=== PATIENT | male | born 1950 | race Caucasian/White ===

== ENCOUNTER → 2016-02-27 | Outpatient (CLI) | payer OTHER, MEDICARE ==
[~2016-02-27] MED LIST: ALBUTEROL0.09 MG/A2 INH; ALL 100 SUPER B1 TAB JT; ALPRAZOLAM0.5 M2; AMLODIPINE BESYL5 MG PO; ASPI-COR81 M1 PO; ASPIRIN81 M1 PO; ASPIRIN81 MG PO; ATENOLOL25 MG JT; ATENOLOL25 MG PO; ATIVAN1 MG PO; AUGMENTIN 2040 MG/ML PEG; Atrovent I0.5 MG/2.5 NEB; BISCOLAX5 MG PO; BUPROPION HCL100 MG JT; CATAPRES-T0.1 MG/24 TD; CEFUROXIME AXE250 MG PO; CLONIDINE HCL0.1 MG PO; CLONIDINE0.1 MG PO; COLACE100 MG JT; COLACE100 MG PO; DAILY VALUE1 EACH PO; DELTASONE10 MG; DESYREL50 MG PO; DOXYCYCLINE HY100 M5 PO; DUONEB 3 MG/3 ML3 M1 INH; DUONEB 3 MG/3 ML3 M1 NEB; Duoneb 3ML 3 MG/3 ML INH; ENSURE CLINICA PO; EPA1000 MG PO; FLEXERIL10 MG PO; FLUONAZOLE100 MG PO; GABAPENTIN TAB600 MG PO; HOSPBED; HYDR25T PO; HYDROCHLOROTHIA25 M1 PO; HYDROCODONE BIT1 T11 PO; Ipratropium Brom3 ML IH; KEFLEX500 MG PO; KLOR-CON 1010 ME1 PO; LEVAQUIN500 M2 PO; LEVAQUIN750 MG PO; LISINOPRIL20 MG PO; LISINOPRIL40 MG PO; LOPRESSOR25 MG PO; Lopressor25 MG PO; Lovenox40 MG/0.4 IJ; MAXIPIME1 GM IV; MEDROL DOSEPAK4 MG PO; MELATONIN10 M2 PO; MELATONIN5 M1 PO; MELATONIN5 M2 PO; MELATONIN5 MG PO; METOPROLOL SUCC25 M2 PO; MINIPRESS2 M1 PO; MOM30 M1 PO; MUCINEX DM 30 M1 TE1 PO; MULTI VITAMINS1 TAB PO; MULTIPLE VITAMI1 T25 PO; MULTIPLE VITAMI1 TAB JT; MYCELEX TROCHE PO; MYCELEX TROCHE10 MG PO; Motrin,Rufen800 MG PO; NEURONTIN300 MG PO; NEURONTIN600 MG PO; NICODERM C21 MG/24 H TD; NITRO-DUR0.4 MG/HR SL; NKHM; OS-CAL 500 + D1 TAB PO; OXYCODONE AND A1 T11 JT; OXYGEN NAS; PERCOCET 325 MG1 TA2 PO; POTASSIUM CHLO10 MEQ PO; PREDNISONE10 MG PO; ROBITUSSIN5 ML PO; SERTRALINE HYDR25 MG PO; SOLU MEDROL IJ; SPIRIVA18 MCG PO; SYMBICORT1 AE1 INH; TEMAZEPAM15 M1 PO; TESTOSTERO200 MG/10 IM; TOPROL XL25 MG PO; TRAMADOL HCL50 MG PO; TRAMADOL50 MG JT; TRAMADOL50 MG PO; TRAZADONE HYDR100 MG PO; TRAZODONE150 MG JT; TYLENOL 8 HOUR650 MG PO; TYLENOL W/ CODEI5 ML PEG; ULTRAM ER100 MG PO; ULTRAM50 MG PO; VIAGRA100 MG PO; VIAGRA25 MG PO; VIBRAMYCIN100 MG PO; VICODIN 5-3001 EACH PO; VICODIN 5/500 505 MG PO; VIT C-BIOFLAVO1 EACH PO; VITAMIN C1 TAB PO; VITAMIN D1000 IU PO; VIVLODEX10 MG PO; Ventolin 02.5 MG/3 M NEB; WELLBUTRIN100 MG PO; XANAX0.25 MG PO; XANAX0.5 MG PO; XANAX1 MG JT; XOPENEX1.25 MG/3 IH; ZOFRAN ODT4 MG SL; ZOLOFT25 MG PO; ZOLOFT50 MG PO; ZOSYN1 SO1 IV; Zestril,Prinivi40 MG PO
[2016-02-27 15:56] LABS: VITAMIN D, 25-HYDROXY 38.7 ng/mL (30-100)
== END | disposition home or self-care (01) ==
LOC: LAB 14:11
PROVIDERS: Internal Medicine
DX: N62 Hypertrophy of breast (principal); E29.1 Testicular hypofunction; E55.9 Vitamin D deficiency, unspecified

== ENCOUNTER 2016-12-07 13:45 | Inpatient (IN) | payer OTHER, MEDICARE ==
[~2016-12-07] VITALS: Ht 190.5 cm; Wt 119.9 kg
[2016-12-07 13:58] VITALS: BP 128/66
[2016-12-07 14:30] LABS: BASO % 0.2 % (0.0-1.0); EOS % 0.2 % (1.0-4.0); HEMOGLOBIN 14.4 g/dl (14.0-18.0); LYMPH # 0.8 10*3/uL (1.3-4.4); LYMPH % 4.1 % (27.0-41.0); MEAN CELL VOLUME 98.4 fl (80.0-94.0); MEAN CORPUSCULAR HGB 32.2 pg (27.0-31.0); MEAN CORPUSCULAR HGB CONC 32.7 g/dl (33.0-37.0); MEAN PLATELET VOLUME 9.5 fl (9.6-12.3); MONO # 1.2 10*3/uL (0.1-1.0); MONO % 6.4 % (3.0-9.0); NEUT # 16.5 10*3/uL (2.3-7.9); NEUT % 88.5 % (47.0-73.0); PLATELET COUNT AUTOMATED 243 10*3/uL (130-400); RED BLOOD COUNT 4.47 10*6/uL (4.50-5.90); RED CELL DISTRI WIDTH 12.8 % (0-14.5); WHITE BLOOD COUNT 18.6 10*3/uL (4.8-10.8)
[2016-12-07 14:41] LABS: ACT PARTIAL THROMBO TIME 26.9 SECONDS (20.8-31.5)
[2016-12-07 14:46] LABS: ALBUMIN 3.2 gm/dl (3.1-4.5); ALKALINE PHOSPHATASE 100 U/L (45-117); BUN 21 mg/dl (7-24); CHLORIDE 100 mmol/L (98-107); CREATININE 1.33 mg/dL (0.70-1.30); POTASSIUM 3.6 mmol/L (3.5-5.1); SGOT/AST 15 IU/L (3-35); SGPT/ALT 15 U/L (12-78); SODIUM 137 mmol/L (136-145); TOTAL PROTEIN 7.5 gm/dL (6.4-8.2)
[2016-12-07 14:47] LABS: TROPONIN I < 0.015 ng/ml (<0.045)
[2016-12-07 15:04] VITALS: BP 136/69
[2016-12-07 15:13] LABS: BILIRUBIN NEGATIVE (NEGATIVE); BLOOD NEGATIVE (NEGATIVE); CLARITY CLEAR (CLEAR); COLOR YELLOW (YELLOW); GLUCOSE NEGATIVE (NEGATIVE); KETONE NEGATIVE (NEGATIVE); LEUKO ESTERASE NEGATIVE (NEGATIVE); NITRITE NEGATIVE (NEGATIVE); PH 5.5 (5.0-9.0); SPECIFIC GRAVITY 1.025 (1.005-1.030); UROBILINOGEN 0.2 E.U./dl (0.2-1.0)
[2016-12-07 15:22] LABS: BACTERIA TRACE
[2016-12-07] MEDS ORDERED: ASPIRIN ADULT L81 M1 PO (17:21)
[2016-12-07] MEDS ORDERED: IBU800 MG PO (17:25)
[2016-12-07] MEDS ORDERED: MELATONIN10 M4 PO (17:28)
[2016-12-07] MEDS ORDERED: SYMB160 INH (17:34)
[2016-12-07] MEDS ORDERED: INCRUSE ELLI62.5 MCG INH (17:37)
[2016-12-08] VITALS: BP 139/66
[2016-12-08 06:49] LABS: HEMOGLOBIN 12.5 g/dl (14.0-18.0); MEAN CELL VOLUME 97.4 fl (80.0-94.0); MEAN CORPUSCULAR HGB 32.1 pg (27.0-31.0); MEAN PLATELET VOLUME 9.8 fl (9.6-12.3); PLATELET COUNT AUTOMATED 224 10*3/uL (130-400); RED BLOOD COUNT 3.89 10*6/uL (4.50-5.90); RED CELL DISTRI WIDTH 12.8 % (0-14.5); WHITE BLOOD COUNT 16.2 10*3/uL (4.8-10.8)
[2016-12-08 06:50] LABS: HEMATOCRIT 37.9 % (42.0-52.0)
[2016-12-08 07:24] LABS: TOTAL CELLS COUNTED 100 #CELLS
[2016-12-08 07:25] LABS: PLATELET SUFFICIENCY NORMAL (NORMAL)
[2016-12-08 07:30] LABS: ALBUMIN 2.7 gm/dl (3.1-4.5); ALKALINE PHOSPHATASE 86 U/L (45-117); BUN 19 mg/dl (7-24); CHLORIDE 106 mmol/L (98-107); CHOLESTEROL 164 mg/dL (<200); CREATININE 1.01 mg/dL (0.70-1.30); FREE T4 0.96 ng/dl (0.76-1.46); HDL CHOLESTEROL 74 mg/dl (40-60); LDL CHOLESTEROL 82 mg/dL (9-159); PHOSPHOROUS 2.1 mg/dL (2.5-4.9); POTASSIUM 3.9 mmol/L (3.5-5.1); SGOT/AST 16 IU/L (3-35); SGPT/ALT 13 U/L (12-78); SODIUM 139 mmol/L (136-145); TOTAL PROTEIN 6.5 gm/dL (6.4-8.2); TRIGLYCERIDES 39 mg/dl (<150); VLDL CHOLESTEROL 8 mg/dL (6-40)
[2016-12-08 07:34] LABS: THYROID STIM HORMONE (HS) 0.419 uIU/ml (0.358-4.75)
[2016-12-08 07:47] LABS: VITAMIN D, 25-HYDROXY 34.3 ng/mL (30-100)
[2016-12-08 08:00] VITALS: BP 140/76
[2016-12-08 12:00] VITALS: BP 140/68
[2016-12-08 16:00] VITALS: BP 138/76
[2016-12-08 20:00] VITALS: BP 146/68
[2016-12-09] VITALS: BP 153/80
[2016-12-09 06:30] LABS: BASO % 0.2 % (0.0-1.0); EOS % 0.2 % (1.0-4.0); HEMATOCRIT 37.5 % (42.0-52.0); HEMOGLOBIN 12.2 g/dl (14.0-18.0); LYMPH # 1.5 10*3/uL (1.3-4.4); LYMPH % 10.9 % (27.0-41.0); MEAN CELL VOLUME 97.4 fl (80.0-94.0); MEAN CORPUSCULAR HGB 31.7 pg (27.0-31.0); MEAN CORPUSCULAR HGB CONC 32.5 g/dl (33.0-37.0); MEAN PLATELET VOLUME 9.6 fl (9.6-12.3); MONO % 7.4 % (3.0-9.0); NEUT # 11.1 10*3/uL (2.3-7.9); NEUT % 80.9 % (47.0-73.0); PLATELET COUNT AUTOMATED 232 10*3/uL (130-400); RED BLOOD COUNT 3.85 10*6/uL (4.50-5.90); RED CELL DISTRI WIDTH 12.8 % (0-14.5); WHITE BLOOD COUNT 13.7 10*3/uL (4.8-10.8)
[2016-12-09 06:59] LABS: BUN 18 mg/dl (7-24); CHLORIDE 108 mmol/L (98-107); PHOSPHOROUS 2.8 mg/dL (2.5-4.9); POTASSIUM 3.9 mmol/L (3.5-5.1); SODIUM 142 mmol/L (136-145)
[2016-12-09 08:00] VITALS: BP 154/82
[2016-12-09 12:00] VITALS: BP 160/85
[2016-12-09 16:00] VITALS: BP 161/73
[2016-12-09] MEDS ORDERED: CONTRAVE ER 8-1 EACH PO (17:10)
[2016-12-09 20:00] VITALS: BP 151/80
[2016-12-10] VITALS: BP 150/68
[2016-12-10 08:00] VITALS: BP 126/54
[2016-12-10 16:00] VITALS: BP 132/64
[2016-12-10 20:00] VITALS: BP 144/74
[2016-12-11] VITALS: BP 132/54
[2016-12-11 08:00] VITALS: BP 136/66
[2016-12-11] MEDS ORDERED: PREDNISONE10 MG PO (11:34)
[2016-12-11] MEDS ORDERED: SERTRALINE HYDR25 MG PO (11:34)
[2016-12-11] MEDS ORDERED: DOXYCYCLINE100 M3 PO (11:34)
[2016-12-11 12:00] VITALS: BP 124/67
== END 2016-12-11 13:50 | disposition home health service (06) | DRG 871 ==
LOC: ED 13:45 → EDHOLD 15:48 → 5E 15:48
PROVIDERS: Emergency Medicine; Internal Medicine; ADMIT Internal Medicine
DX: A41.9 Sepsis, unspecified organism (principal); N17.0 Acute kidney failure with tubular necrosis; J96.21 Acute and chronic respiratory failure with hypoxia; J44.0 Chronic obstructive pulmonary disease with (acute) lower respiratory infection; J18.9 Pneumonia, unspecified organism; J44.1 Chronic obstructive pulmonary disease with (acute) exacerbation; R13.10 Dysphagia, unspecified; R65.20 Severe sepsis without septic shock; I10 Essential (primary) hypertension; M19.90 Unspecified osteoarthritis, unspecified site; K21.9 Gastro-esophageal reflux disease without esophagitis; F17.210 Nicotine dependence, cigarettes, uncomplicated; F41.9 Anxiety disorder, unspecified; M47.9 Spondylosis, unspecified; F32.9 Major depressive disorder, single episode, unspecified; F43.12 Post-traumatic stress disorder, chronic; R27.0 Ataxia, unspecified; Z88.8 Allergy status to other drugs, medicaments and biological substances; Z79.899 Other long term (current) drug therapy; Z85.048 Personal history of other malignant neoplasm of rectum, rectosigmoid junction, and anus; Z90.5 Acquired absence of kidney; Z98.52 Vasectomy status; Z72.89 Other problems related to lifestyle; Z82.49 Family history of ischemic heart disease and other diseases of the circulatory system; Z83.6 Family history of other diseases of the respiratory system; Z99.81 Dependence on supplemental oxygen; Z85.89 Personal history of malignant neoplasm of other organs and systems; Z79.82 Long term (current) use of aspirin

== ENCOUNTER 2017-02-17 11:49 | Inpatient (IN) | payer OTHER, MEDICARE ==
[~2017-02-17] VITALS: Ht 190.5 cm; Wt 115.8 kg
--- NOTE | ~2017-02-17 | PR ---
[place], [place] PROGRESS NOTE NAME: JAK BAPTISTE [facility] #: [id number] UNIT #: [id number] ROOM: 416 DOCTOR: ROWAN CRONIN DO BIRTHDATE: [birth year] DOS: 02/21/2017 SUBJECTIVE: The patient was seen and examined at bedside. The patient was sitting in bed with no acute distress. The patient was with his family present at the time of interview. The patient reports that he did not do well with his ambulating yesterday, that he was feeling tired and short of breath. Additionally, the patient continues to have cough and shortness of breath while in bed. The patient agrees that he is not ready for discharge and that he will need continued care in the hospital until he is stable and able to return home on his baseline home oxygen supplementation. Otherwise, no new complaints at this time. The patient denies fever, chills, nausea, vomiting, headache, dizziness, lightheadedness, syncope. OBJECTIVE: VITAL SIGNS: Temperature 97.9, pulse is 77, respirations 20, blood pressure 132/72, pulse ox is 90% on 5 liters nasal cannula. GENERAL APPEARANCE: The patient is alert and oriented x 3, in no acute distress. HEENT: Eyes are clear. No injection. Nares are patent. Mucous membranes are moist. Nasal cannula is in place. NECK: Supple, nontender. CARDIAC: Regular rate and rhythm, S1, S2 noted. No rubs, gallops or murmurs. PULMONARY: Expiratory wheezes. No rales or rhonchi. ABDOMEN: Soft, nontender with positive bowel sounds. EXTREMITIES: No edema. No erythema. No cyanosis. No clubbing. LABORATORY DATA: White count 12.3, hemoglobin 12.1, hematocrit 36.7, platelets count 238. Chemistries were normal. Sputum culture from the 9th showed moderate yeast. IMPRESSION AND PLAN: Acute worsening of patient's chronic obstructive pulmonary disease exacerbation. The patient had a mild decline in his respiratory function. The patient is back to 5 liters nasal cannula at the rest, which is not stable for this patient and will need continued care in the hospital until his oxygenation returns to 2-3 liters baseline, continue with ambulation as tolerated, continue with steroids, antibiotics and bronchodilators, supportive care. No change in current plan at this time. Chest x-ray showed chronic obstructive pulmonary disease with mild basilar infiltrates and normal heart size. This imaging was from this morning. We will continue to follow. ROWAN CRONIN DO [place], [place] PROGRESS NOTE NAME: JAK BAPTISTE UNIT #: [id number] ROOM: 416 DOCTOR: ROWAN CRONIN DO BIRTHDATE: [birth year] MEME LENOARD MD CM:XIN [id number] ROWAN CRONIN DO 02/21/17 2242 interface
--- NOTE | ~2017-02-17 | PROC NOTE ---
[place], [place] PROCEDURE NOTE NAME: JAK BAPTISTE [facility] #: [id number] UNIT #: [id number] ROOM: 416 DOCTOR: FRANCIE HUSSEIN BIRTHDATE: [birth year] DOS: 02/19/2017 MODIFIED BARIUM SWALLOW LOCATION: [facility], room 416, bed 2. DOCTOR: Dr. Benson. RADIOLOGIST: Dr. Cordoba. BACKGROUND INFORMATION: The patient is a 66-year-old male was seen for modified barium swallow. This test was ordered to rule out aspiration due to his history. The patient is known to this department from past instances multiple times of aspiration pneumonia. He has had multiple video fluoroscopic swallowing studies performed both in this hospital and in other facilities. His most recent study was performed here on 03/07/2015. At that time, results revealed a mild pharyngeal dysphagia with delayed swallow initiation and penetration with thin liquids. His medical history is significant for acute kidney injury, COPD, pneumonia, respiratory failure, HTN, GERD and history of rectal cancer. He currently receives a regular diet and thin liquids. The patient reports no recent swallowing difficulty. For today's assessment, he was alert and able to follow commands. He was receiving oxygen via nasal cannula. He reported no shortness of breath. Oral peripheral examination revealed presence of top denture only. The patient reported that it fit adequately; however, it was noted to be loose fitting. Lingual, labial and buccal skills were within functional limits in terms of strength, range of motion and coordination. The patient's volitional swallow was delayed. Volitional cough was adequate. METHODS AND MATERIALS USED FOR THE EXAM: The patient was positioned in the lateral plane and examination was viewed under fluoroscopy. The patient was presented with a variety of consistencies to assess swallowing skills including applesauce mixed with barium, presented in half teaspoon amounts, barium-coated cookie and sandwich given in bite size pieces and thin liquid barium taken by cup in single sip size amounts. ORAL PHASE: The patient achieved adequate labial seal around cup and spoon with no anterior loss. Bolus formation and transit were adequate. Mastication was slow but functional. Tongue to palate contact was within normal limits. Tongue to posterior pharyngeal wall contact was within normal limits. Velar functioning was within normal limits. PHARYNGEAL PHASE: The pharyngeal swallow was timely with all consistencies except thin liquid. He did exhibit a mild delay initiating thin liquids swallows with premature loss into the vallecula prior to the swallow. Once his swallow triggered with every consistency, there was no penetration or aspiration and no residue. ESOPHAGEAL PHASE: This phase of the swallow was not formally assessed during this exam. [place], [place] PROCEDURE NOTE NAME: JAK BAPTISTE UNIT #: [id number] ROOM: [facility] DOCTOR: FRANCIE HUSSEIN BIRTHDATE: [birth year] IMPRESSIONS AND RECOMMENDATIONS: Based upon assessment results, this 66-year-old male presents with swallowing skills that are within functional limits. He did display a mild delay in initiating the swallow with thin liquid consistency only. However, once the swallow triggered, no penetration or aspiration occurred with this or with any consistency. It is recommended that the patient remained on regular diet and thin liquids and continue to implement safe swallow precautions that he has been performing such as upright positioning for meals, small bites and sips, eating slowly and chewing thoroughly. No followup therapy is warranted at this time. Results and recommendations were shared with the patient and he verbalized understanding. Thank you very much for this referral. Should you have any questions regarding this patient, please contact the speech pathologist at [phone]. FRANCIE HUSSEIN CM:PROCNOTE:PROCEDURE NOTE [id number] FRANCIE HUSSEIN
--- NOTE | ~2017-02-17 | PR ---
[place], [place] PROGRESS NOTE NAME: JAK BAPTISTE [facility] #: [id number] UNIT #: [id number] ROOM: 416 DOCTOR: ROWAN CRONIN DO BIRTHDATE: [birth year] DOS: 02/26/2017 SUBJECTIVE: The patient is seen and examined at bedside. The patient was lying in bed, in no acute distress. The patient reports that his breathing has some mild improvement; however, he remains short of breath with some wheezing. No productive cough. The patient reports that he would like to go a SNF if available; however, yesterday he found out that the SNF was not improved by his insurance and so his only option at this point is to go home when he is clinically stable. The patient agrees to that plan and is anxious to get home. No new complaints at this time. OBJECTIVE: VITAL SIGNS: Temperature 97.9, pulse is 56, respirations 18, blood pressure 139/71, bedside pulse ox is 91% on 4 liters nasal cannula. GENERAL APPEARANCE: The patient is awake, alert and oriented times 3, no acute distress. HEENT: Eyes are clear. No injection. Nares are patent. Mucous membranes are moist. NECK: Supple, nontender. CARDIOVASCULAR: Regular rate and rhythm, no murmurs, gallops or rubs. PULMONARY: Wheezes and rhonchi in all lung robertson. Mild improvement from yesterday. ABDOMEN: Soft, nontender, positive bowel sounds. EXTREMITIES: No edema, no erythema, no clubbing or cyanosis. NEUROLOGIC: Negative for focal deficits. No labs were drawn today. Sputum culture from the night shows normal norman. Blood cultures remain negative. Strep and flu swabs were negative. ASSESSMENT: 1. Acute on chronic obstructive pulmonary disease. 2. Acute hypoxia with hypercapnia. 3. Nicotine abuse. 4. Resolving bilateral lower lobe pneumonia. PLAN: We will assess the patient for home oxygen needs. The patient already has equipment at home. We will reassess to see if he needs new scripts for a new of the nasal cannula. We will also assess to see if the patient needs physical therapy and respiratory therapy at home and make appropriate arrangements as needed. The patient is medically stable from a pulmonary standpoint for discharge. Recommend continuing steroid taper along with antibiotics upon discharge and follow up with Dr. Leonard in 1-2 weeks. We will continue to follow the patient as long as he remains in the hospital. ROWAN CRONIN DO [place], [place] PROGRESS NOTE NAME: JAK BAPTISTE [facility] UNIT #: [id number] ROOM: [facility] DOCTOR: ROWAN CRONIN DO BIRTHDATE: [birth year] MEME LEONARD MD CM:XIN [id number] ROWAN CRONIN DO 02/26/17 1239 interface
--- NOTE | ~2017-02-17 | PR ---
[place], [place] PROGRESS NOTE NAME: JAK BAPTISTE [facility] #: [id number] UNIT #: [id number] ROOM: 416 DOCTOR: HORACIO HORN MD,MEME BIRTHDATE: [birth year] DOS: 02/23/2017 SUBJECTIVE: The patient has been showing gradual reduction and improvement in respiratory symptoms. Today, the patient stated he has been feeling much better than last few days. Denies symptoms of chest pain. The coughing has been resolving. There were symptoms of chest pain or any abdominal pain. OBJECTIVE: VITAL SIGNS: For the patient which were recorded. The patient shows a temperature normal, respiratory rate 18, heart rate 67, blood pressure 135/61. Pulse oxygen saturation on 6 L nasal cannula 94% saturation. HEENT: No new change. CARDIOVASCULAR: S1, S2 audible. LUNGS: The patient was noted with moderate decreased breath sounds, mild expiratory wheezing. ABDOMEN: Soft and obese. EXTREMITIES: Without any edema. LABORATORY DATA: CBC: WBC count 15.8, hemoglobin 12.2, hematocrit 37.0, platelet count of ____. BMP for the patient, glucose 141, BUN 34, creatinine 1.10. IMPRESSION: 1. Stable respiratory status was noted at the present time with resolving acute hypoxic respiratory failure with hypercarbia. 2. Acute pneumonia for this patient as well. PLAN OF MANAGEMENT: Continuation of oxygen supplementation, bronchodilators and the antibiotics. Continuation of other therapy, plan of management. Reduction of the oxygen for this patient with titration based on improvement in the oxygenation. MEME LEONARD MD CM:PNTRANS [phone] MEME HORN MD 02/23/17 1737 interface
--- NOTE | ~2017-02-17 | PR ---
[place], [place] PROGRESS NOTE NAME: JAK BAPTISTE [facility] #: [id number] UNIT #: [id number] ROOM: 416 DOCTOR: HORACIO HORN MD,MEME BIRTHDATE: [birth year] DOS: 02/27/2017 SUBJECTIVE: The patient was seen independently today with [id number] encounter, history was confirmed. Physical examination was performed. The assessment and management personally made for today's visit as well. The note done by the medical physiologist, was approved. The patient has been showing progressive reduction of the respiratory symptom, improvement of cough, wheezing, shortness of breath, and others. OBJECTIVE: VITAL SIGNS: Essentially were noted as normal. The pulse oxygen saturation maintaining oxygen saturation 95% on 4 liters cannula. LUNGS: Mild expiratory wheezing in the lower lung. There were no crackles. ABDOMEN: Soft, nontender. EXTREMITIES: Shows mild edema. LABORATORY DATA: The patient's CBC: WBC count 15.8 with mild anemia, otherwise creatinine were noted normal. IMPRESSION: Progressive resolution. Acute severe hypoxic and hypercapnic respiratory failure, acute aspiration pneumonia, reduction of the leukocytosis was noted. Overall debility. PLAN OF MANAGEMENT: The patient has been planned for discharge home since he has not been authorized for the correction facility or home health therapy. In the meantime, continue other plan of therapy as in progress. No additional changes in the treatment at this time will be necessary. MEME LEONARD MD CM:PNTRANS [phone] MEME HORN MD 02/27/172031 interface
--- NOTE | ~2017-02-17 | PR ---
[place], [place] PROGRESS NOTE NAME: JAK BAPTISTE [facility] #: [id number] UNIT #: [id number] ROOM: 416 DOCTOR: HORACIO HORN MD,MEME BIRTHDATE: [birth year] DOS: 02/20/2017 SUBJECTIVE: The patient was independently seen and examined today with [id number] encounter. Physical examination performed. Labs available were reviewed. ____ patient for today's visit personally completed. The assessment and the note done by the medical reception was approved as well. The patient has been still noted with coughing and shortness of breath with reduction of the respiratory symptoms. Denies any symptoms of chest pain or hemoptysis. The patient was noted mostly at the bed for the patient and has not ambulated, requiring 4 liters of oxygen supplementation. OBJECTIVE: VITAL SIGNS: For the patient shows a normal temperature, respiratory rate 18, heart rate 60, blood pressure 48/87 this morning. Pulse oxygen saturation with 5 liter nasal cannula was 90% saturation on 4 liters was 89% saturation. HEENT: No acute change. NECK: Supple. CARDIOVASCULAR: S1, S2 audible. LUNGS: The patient was noted with moderate decreased breath sounds, expiratory wheezing. ABDOMEN: Soft, nontender. EXTREMITIES: Without any edema. SKIN: No lesions or rashes. MUSCULOSKELETAL: No deformities. GENITOURINARY: Noted intact. LABORATORY DATA: Modified barium swallow was completed. The patient just did which does not show any gross aspiration. The cultures of the sputum was noted with moderate growth of A yeast. IMPRESSION: 1. The patient has been noted with ongoing exacerbation of chronic obstructive pulmonary disease with severe acute hypoxic respiratory failure. The patient still requiring high amount of oxygen supplementation at the present time. 2. Anxiety. The patient is anxious for home discharge as well. 3. Bilateral lower lobe aspiration pneumonia as well. PLAN OF MANAGEMENT: Follow the recommendation of the speech pathologist as well. ____ with use of the oxygen to assess tomorrow if the patient will be ready for discharge. I will be repeating another ____ this morning to reassess the progression of pulmonary infiltration. Possibility of worsening of the infiltration was suspected since the patient still require high amount of oxygen supplementation. Continuation of the bronchodilators and oxygen supplementation as well as corticosteroids. Usual care, other supportive plan of management. Abstinence from the tobacco use was recommended as well. [place], [place] PROGRESS NOTE NAME: JAK BAPTISTE UNIT #: [id number] ROOM: 416 DOCTOR: MEME TAMAYO MD BIRTHDATE: [birth year] MEME LEONARD MD CM:PNTRANS [phone] MEME HORN MD 02/20/171652 interface
--- NOTE | ~2017-02-17 | EKG ---
[place], [place] ELECTROCARDIOGRAM REPORT NAME: JAK BAPTISTE UNIT #: [id number] ROOM: 416 DOCTOR: HORACIO HORN MD,MEME BIRTHDATE: [birth year] DOS: 02/17/2017 TIME: 12:09 p.m. Electrocardiogram shows sinus bradycardia with heart rate of 55 beats per minute. Minimal ST segment elevation noted in the II, III and aVF. Significance unknown. Clinical correlation would be advised. MEME LEONARD MD CM:EKGRPT:ELECTROCARDIOGRAM REPORT [id number] MEME HORN MD
--- NOTE | ~2017-02-17 | PR ---
[place], [place] PROGRESS NOTE NAME: JAK BAPTISTE [facility] #: [id number] UNIT #: [id number] ROOM: 416 DOCTOR: ROWAN CRONIN DO BIRTHDATE: [birth year] DOS: 02/20/2017 SUBJECTIVE: The patient is seen and examined at bedside. The patient was sitting upright, with family present in the room. The patient is in no acute distress. The patient reports that his shortness of breath, his cough and his wheezing have all improved. The patient is anxious to be discharged to go home to continue his care. However, he understands that he should be medically stable before he is ready to go. We encouraged him to walk around the hospital to see how his oxygenation does. The patient understands the plan and agrees. The patient thinks that he might be ready to go tomorrow. The patient has no new complaints today. OBJECTIVE: VITAL SIGNS: Temperature 98.4, pulse is 60, respirations 18, blood pressure 148/87, pulse ox is 90% on 4 liters nasal cannula. LABS: Sputum culture shows moderate yeast. No bacteria. Blood cultures remain negative. Flu culture was negative. Strep culture was negative. Modified barium swallow yesterday showed no deficits. GENERAL APPEARANCE: The patient is alert and oriented x 3, no acute distress. HEENT: Eyes are clear. No injection, no discharge, nares are patent. Mucous membranes are moist. NECK: Supple, nontender. LUNGS: Diminished with expiratory wheezing. No crackles are noted. ABDOMEN: Soft, nontender with positive bowel sounds. EXTREMITIES: No erythema, edema, or cyanosis or clubbing. SKIN: Clear of rashes. NEUROLOGIC: Cranial nerves are grossly intact. IMPRESSION: 1. Sepsis. 2. Chronic obstructive pulmonary disease with acute exacerbation. 3. Suspected pneumonia with suspected aspiration. CT was positive for bilateral pneumonia with left lower lobe greater than the right lower lobe. Swallow study was negative. 4. Tobacco abuse. 5. Oxygen dependent. 6. Chronic respiratory failure. 7. Vitamin D deficiency. 8. Protein calorie malnutrition. TREATMENT: At this time, we encouraged the patient to ambulate and to see how his oxygenation level does. The patient continues to improve and if he continues to improve by tomorrow, the patient will be ready for discharge from pulmonary standpoint. We will discuss this with the primary team. ROWAN CRONIN DO [place], [place] PROGRESS NOTE NAME: JAK BAPTISTE UNIT #: [id number] ROOM: [facility] DOCTOR: ROWAN CRONIN DO BIRTHDATE: [birth year] MEME LEONARD MD CM:XIN [phone] ROWAN CRONNI DO 02/20/17 1200 interface
--- NOTE | ~2017-02-17 | PR ---
[place], [place] PROGRESS NOTE NAME: JAK BAPTISTE [facility] #: [id number] UNIT #: [id number] ROOM: 416 DOCTOR: HORACIO HORN MD,MEME BIRTHDATE: [birth year] DOS: 02/19/2017 SUBJECTIVE: The patient was independently seen and examined today with [id number] encounter, history was taken for this patient personally physical examination performed. All the labs were reviewed. Any changes in the assessment of the patient or recommendation in change of management were personally made for today's visit. The note done by the medical reimbursement specialist, was approved. The patient has reported reduction of the respiratory symptoms from yesterday. Denies any symptoms of chest pain or any abdominal pain. The patient has not been reported any symptoms of abdominal pain. He was scheduled to have modified barium swallow completed today to rule out any dysphagia. OBJECTIVE: VITAL SIGNS: For the patient was noted essentially normal and the patient remains afebrile. Pulse oxygen saturation on 5 liter nasal cannula noted as 91% saturation. HEENT: Head was atraumatic. Eyes nonicterus. NECK: Supple. CARDIOVASCULAR: S1, S2 audible. LUNGS: Shows moderate decreased breath sounds with scattered expiratory wheezing and basilar crackles. ABDOMEN: Soft, nontender. Moderate obesity. EXTREMITIES: Without any edema. SKIN: No visible skin lesions. GENITOURINARY: Cranial nerves are intact. MUSCULOSKELETAL: No gross deformities. LABORATORY DATA: Culture of the sputum preliminary noted normal norman from yesterday. Urine culture, no bacterial growth, final results. Blood culture from preliminary reported no bacterial growth in both sets. IMPRESSION: 1. The patient who has been currently noted with acute exacerbation of chronic obstructive pulmonary disease with bilateral basilar pneumonia with additional area of atelectasis. 2. Severe acute hypoxic respiratory failure result of the above. 3. Rule out dysphagia as well. PLAN OF TREATMENT: The patient would be continued on the current antibiotics, bronchodilators and oxygen supplementation. Titrate oxygen to maintain a saturation of 92% or greater. Continue current antibiotic, monitoring temperature curve and leukocytosis. Any additional changes in the treatment for the patient if necessary will be ordered after the assessment of modified barium swallow. At this time, no additional or immediate changes in treatment will be needed. Titrate oxygen to maintain a saturation to 92% or greater. [place], [place] PROGRESS NOTE NAME: JAK BAPTISTE [facility] UNIT #: [id number] ROOM: 416 DOCTOR: MEME TAMAYO MD BIRTHDATE: [birth year] MEME LEONARD MD CM:PNMARIELLA [phone] MEME HORN MD 02/19/17 2257 interface
--- NOTE | ~2017-02-17 | CON ---
[place], [place] REPORT OF CONSULTATION NAME: JAK BAPTISTE [facility] #: [id number] UNIT #: [id number] ROOM: 416 DOCTOR: HORACIO HORN MDMEME BIRTHDATE: [birth year] DOS: 02/18/2017 PULMONARY CONSULTATION EVALUATION AND MANAGEMENT CONSULTATION REQUESTED BY: Hospitalist services. REASON FOR CONSULTATION: To assess symptoms of acute exacerbation of COPD. HISTORY OF PRESENT ILLNESS: This is a 66-year-old male patient known to me with past history of COPD and past history of recurrent aspiration pneumonia. He has been admitted to the hospital on 02/17/2017, as he has not been feeling well for about a week. The patient did develop symptoms of cough, which has been noted dry and progressive. The symptoms were associated with the shortness of breath. Denies symptoms of significant wheezing. Denies symptoms of chest pain or hemoptysis. The patient denies any symptoms of chest trauma. He has been admitted to the hospital, as the patient reported with symptoms of fever as well. REVIEW OF SYSTEMS: CONSTITUTIONAL: The patient reported symptoms of temperature elevation up to 102 degrees Fahrenheit. There were no chills. Denies changes in appetite. EYES: Denies any burning, redness, tenderness. EARS, NOSE, AND THROAT: Denies sore throat, hoarseness, otalgia, postnasal drainage. CARDIOVASCULAR: Denies angina pain, edema or pain of the lower extremities. GASTROINTESTINAL: Denies symptoms of dysphagia at the present time. Denies symptoms of nausea, vomiting, diarrhea, abdominal pain, hematemesis, melena, or any abnormal weight loss history. GENITOURINARY: Dysuria, suprapubic pain, and hematuria. SKIN: Denied any lesions or rashes. MUSCULOSKELETAL: No acute joint pain, redness, or tenderness. CENTRAL NERVOUS SYSTEM: Denies dizziness, headache, diplopia, syncopal episodes. The remaining systems were reviewed with the patient, they were noted all negative. Last diagnosis managed in 11/2016, as the patient was managed for exacerbation of chronic obstructive pulmonary disease, respiratory failure and the pneumonia reported in the discharge summary. PAST MEDICAL HISTORY: 1. History of COPD. 2. History of recurrent pneumonia from oropharyngeal dysphagia that has been resolved. 3. History of PTSD. 4. History of renal cell cancer in 2010 on the right side. 5. Essential hypertension. 6. Anxiety disorder. 7. Chronic nicotine dependence intermittently. [place], [place] REPORT OF CONSULTATION NAME: JAK BAPTISTE [facility] #: [id number] UNIT #: [id number] ROOM: [facility] DOCTOR: MEME TAMAYO MD BIRTHDATE: [birth year] PAST SURGICAL HISTORY: Noted. 1. Right nephrectomy. 2. Left knee replacement. 3. Vasectomy. 4. Therapeutic bronchoscopy. 5. PEG tube insertion and removal in 2014. 6. Upper endoscopy. 7. Tonsillectomy. 8. Fistulectomy. 9. Appendectomy. FAMILY HISTORY: The patient's father at the age of 8080 years old with complication related to abdominal aortic aneurysm. Mother at 77 years old with complications related to COPD. SOCIAL HISTORY: The patient is and lives at home. Denies history of illicit drug use. Tobacco use was noted, at age of [age] years old smoked between half to 1 pack of cigarettes per day. There was no history of alcohol use, illicit drug use. The patient has worked in a [employer] [place] for about 12 years. CURRENT MEDICATIONS: Current medication administered noted use of sertraline, vitamin D, Mucinex DM, hydrochlorothiazide, Zyrtec, aspirin, Metoprolol Tartrate, Norvasc, Lovenox for DVT prophylaxis, Protonix, gabapentin, DuoNeb q.4h., IV Rocephin, Zithromax and p.r.n. use of Xanax. DRUG ALLERGY HISTORY: ALLERGIES TO PERCOCET. PHYSICAL EXAMINATION: GENERAL: This is a 66-year-old male who has been currently noted to be awake and alert without any distress, lying in the bed comfortably. Height of 6 feet 2 inches, weight of 258 pounds, BMI of 32. VITAL SIGNS: Normal temperature, respiratory rate recorded 18-20, heart rate of 66-72, blood pressure 132/66-125/60. The pulse oxygen saturation of the patient recorded on room air as 81%, later on 5 liters 90% with the BiPAP, with a Venturi mask rather 95% and this morning on 4 liter nasal cannula 91% saturation at rest was noted. HEENT: Head was atraumatic. Eyes nonicterus. NECK: Supple. CARDIOVASCULAR: S1, S2 is audible. LUNGS: General reduction in breath sounds. Crackles were noted in the middle and lower portion of the lungs bilaterally. ABDOMEN: Soft, flat, nontender. Bowel sounds are present. There is no tenderness. EXTREMITIES: The patient was noted without any edema, clubbing or cyanosis. SKIN: Visible skin does not show any lesions or rashes. CENTRAL NERVOUS SYSTEM: Cranial nerves 2-12 intact. MUSCULOSKELETAL: No deformities. LABORATORY DATA: CBC yesterday on admission, WBC count normal, hemoglobin 12.8, hematocrit 38.9, platelet count was normal. Lactic acid was noted 0.8 this [place], [place] REPORT OF CONSULTATION NAME: JAK BAPTISTE UNIT #: [id number] ROOM: 416 DOCTOR: HORACIO HORN MD,[facility] BIRTHDATE: [birth year] morning. Influenza A and B, nasal washing antigen negative on admission yesterday. BMP yesterday, BUN 33, creatinine 1.31. Albumin 2.8. Remaining LFTs were normal. Arterial blood gas yesterday on admission pH of 7.37, pCO2 of 43, pO2 of 64 on 40% Venturi mask. CBC this morning, WBC count of 3.4, hemoglobin 11.9, hematocrit 35.7, and platelet count was normal. CMP on 02/18/2017, sodium was normal, potassium was normal, glucose mildly elevated at 132. The albumin was noted 2.6, total protein 6.3, both mildly decreased. Sputum culture for this patient was ordered for this morning has not been collected as yet. REVIEW OF THE RADIOLOGY DATA: PA lateral chest x-ray that was done yesterday afternoon on admission was noted with the changes of COPD, hyperinflation of the lungs with increased interstitial markings. CT scan of the chest that was done yesterday ordered with the primary care attending was reviewed, changes of centrilobular emphysema was noted. Small patchy infiltration was noted in the right upper lobe as well as in the left and the right lower lobes. There was no obvious lymphadenopathy was noted. IMPRESSION: 1. The patient who has been currently admitted to the hospital noted with severe acute hypoxic respiratory failure with bilateral patchy pneumonia with atypical presentation. 2. Chronic nicotine dependence, the patient with intermittent tobacco cessation for a short -time. 3. Past history of dysphagia, which has been treated with the speech therapy with a resolution. The patient does have a PEG tube for short period of time, which was discontinued later on. 4. Hypoxic respiratory failure secondary to the above, which is acute hypoxic respiratory failure. 5. Mild leukopenia and anemia may be related to current ongoing infection. PLAN OF MANAGEMENT: Monitor results of the sputum culture. Continue current antibiotic without any changes. Obtain the modified barium swallow to reassess any interval development of dysphagia. Other supportive plan of therapy and management of the patient to be continued. Usual care. Additional treatment changes to be done based on progression of the illness. Antibiotic spectrum will be changed if necessary for this patient. Fiberoptic bronchoscopy could be performed in case of nonresolution of the symptoms. Thanks for allowing me to participate in the care of this patient. [place], [place] REPORT OF CONSULTATION NAME: JAK BAPTISTE UNIT #: [id number] ROOM: [facility] DOCTOR: MEME TAMAYO MD BIRTHDATE: [birth year] MEME LEONARD MD CM:CONSTR:REPORT OF CONSULTATION 1714 02/19/17 1523 interface
--- NOTE | ~2017-02-17 | PR ---
[place], [place] PROGRESS NOTE [facility] [id number] UNIT #: [id number] ROOM: 416 DOCTOR: HORACIO HORN MD,MEME BIRTHDATE: [birth year] DOS: 02/22/2017 SUBJECTIVE: The patient has been noted with some reduction in the cough, chest congestion, shortness of breath. The patient has been not noted at rest. There were no symptoms of chest pain or any abdominal pain. The chest x-ray done yesterday shows basilar area of infiltration. The patient was started on corticosteroids yesterday Solu-Medrol and bronchodilators. Continue low grade fever noted 99.4 degree Fahrenheit. Denies any nausea, vomiting. Denies abdominal pain, severe weakness. The patient was still noted in general without any focal deficit. There were no symptoms of headache or diplopia. OBJECTIVE: VITAL SIGNS: Recorded shows temperature 99.4 degree Fahrenheit, respiratory rate of 20, heart rate of 67, blood pressure 132/65. Pulse oxygen saturation on 6 liters canula 94% saturation. HEENT: Showed no new change. NECK: Supple. CARDIOVASCULAR: S1, S2 is audible. LUNGS: The patient noted general reduction in breath sounds with expiratory wheezing. There were no crackles. ABDOMEN: Soft, nontender, mild to moderate obesity. Bowel sounds are present. EXTREMITIES: Without any edema. VISIBLE Skin: No lesions or rashes. MUSCULOSKELETAL: No deformities. LABORATORY DATA: Urine for legionella antigen noted as negative. Other blood culture, which were done on 09/10/2017 this month showed no bacterial growths. IMPRESSION: The patient who has been noted with current acute bilateral lower lobe pneumonia with acute exacerbation of chronic obstructive pulmonary disease, acute severe hypoxic respiratory failure as a result as well. Basilar pneumonia noted for gram-positive organs on a possibility of aspiration, treated with the antibiotics. However, severe debility persisted. PLAN OF TREATMENT: Titrate oxygen to maintain saturation 90% or greater. Continue bronchodilators, oxygen supplementation. Continue current dose of Solu-Medrol for the next 24 hours. Usual care. All other supportive therapy, plan of management. Addition treatment changes will be done based on progression of illness. [place], [place] PROGRESS NOTE NAME: JAK BAPTISTE UNIT #: [id number] ROOM: [facility] DOCTOR: MEME TAMAYO MD BIRTHDATE: [birth year] MEME LEONARD MD CM:PNTRANS [phone] MEME HORN MD 02/23/17125 interface
--- NOTE | ~2017-02-17 | PR ---
[place], [place] PROGRESS NOTE NAME: JAK BAPTISTE [facility] #: [id number] UNIT #: [id number] ROOM: 416 DOCTOR: HORACIO HORN MD,MEME BIRTHDATE: [birth year] DOS: 02/26/2017 SUBJECTIVE: The patient was seen today in [id number] encounter. History was confirmed, physical examination was performed. The assessment and management of the patient was personally completed recommendation for change in management were personally done for today's visit. The note done by the medical practice manager was approved. The patient was denied for half-way facility placement. The respiratory symptoms have resolved with reduction in symptoms of cough and chest pain; however, the resolution was noted somewhat incomplete; however, the improvement is continued gradually. PHYSICAL EXAMINATION: VITAL SIGNS: Reviewed for the patient and noted as normal temperature, respirations 18, heart rate 76, and blood pressure 136/86. Pulse oxygen saturation on 4 liters nasal cannula was 94% saturation. LUNGS: Noted with moderate decrease in breath sounds bilaterally. Occasional wheezing without any crackles. ABDOMEN: Soft, nontender. EXTREMITIES: Without any edema. PLAN OF TREATMENT: The patient has been considered at this time for possible home discharge with home health therapy, to be given tapering dose of prednisone, bronchodilators and the oral antibiotics. Continued absolute abstinence from tobacco use was recommended. Outpatient followup should be planned for this patient in 2 weeks post discharge. MEME LEONARD MD CM:PNTRANS [phone] MEME HORN MD 02/27/17 0152 interface
--- NOTE | ~2017-02-17 | PR ---
[place], [place] PROGRESS NOTE NAME: JAK BAPTISTE [facility] #: [id number] UNIT #: [id number] ROOM: 416 DOCTOR: HORACIO HORN MD,MEME BIRTHDATE: [birth year] DOS: 02/25/2017 SUBJECTIVE: The patient was independently seen with jkyz-[id number] encounter, history was confirmed. Physical examination was performed. The assessment personally completed and management was also change as necessary for today's assessment. The note done by the certified ophthalmic medical technician, was approved. The patient has been showing gradual, but slow improvement of respiratory symptom, reduction of cough and shortness of breath. The oxygen supplementation will continue as 4 liters of nasal cannula. The slow improvement noted in the oxygenation. He was noted general weakness and fatigue. PHYSICAL EXAMINATION: VITAL SIGNS: Reviewed was essentially noted normal. Pulse ox 94% on 4 liters. LUNGS: General reduction in breath sounds. No crackles. Scattered expiratory wheezing. ABDOMEN: Soft, nontender. EXTREMITIES: Mild ankle edema. IMPRESSION: 1. Gradual reduction and improvement of acute exacerbation of chronic obstructive pulmonary disease. 2. Acute hypoxic, hypercapnic respiratory failure and debility. 3. History of nicotine abuse. 4. Resolving acute bilateral lower lobe pneumonia. PLAN OF TREATMENT: The patient could be discharged whenever is necessary to residential facility as agreed by the patient as well. From the pulmonary standpoint, continue treatment for exacerbation of COPD and others. MEME LEONARD MD CM:PNTRANS [phone] MEME HORN MD 02/25/172045 interface
--- NOTE | ~2017-02-17 | PR ---
[place], [place] PROGRESS NOTE NAME: JAK BAPTISTE UNIT #: [id number] ROOM: 416 DOCTOR: ROWAN CRONIN DO BIRTHDATE: [birth year] DOS: 02/19/2017 SUBJECTIVE: The patient seen and examined at bedside. The patient was sitting upright. The patient reports that his breathing has improved since admission. He is alert, awake and responsive. His shortness of breath continues; however, it is improved as stated before. The patient is scheduled for a modified barium swallow which is still pending. LABORATORY DATA: Urine legionella is still pending. No new labs were drawn this morning. OBJECTIVE: VITAL SIGNS: Temperature 98.1, pulse 64, respirations 20, blood pressure 124/68, pulse ox 91% on 5 liters nasal cannula. GENERAL APPEARANCE: The patient is alert and oriented x 3, no acute distress. HEENT: Eyes are clear. No injection, no discharge, nares are patent. Mucous membranes are moist. NECK: Supple, nontender. LUNGS: Diminished with expiratory wheezing. No crackles are noted. ABDOMEN: Soft, nontender with positive bowel sounds. EXTREMITIES: No erythema, edema or cyanosis or clubbing. SKIN: Clear of rashes. NEUROLOGICAL: Cranial nerves are grossly intact. IMPRESSION: 1. Sepsis. 2. Chronic obstructive pulmonary disease with acute exacerbation. 3. Suspected pneumonia with possible aspiration. CT was positive for bilateral pneumonia with left lower lobe greater than right lower lobe. 4. Tobacco abuse. 5. Oxygen dependent. 6. Chronic respiratory failure. 7. Vitamin D deficiency. 8. Moderate protein calorie malnutrition. TREATMENT AND PLAN: As mentioned prior, modified barium swallow is pending. Continue with azithromycin and Rocephin, DuoNeb and Mucinex. Cultures are pending. We will continue to follow this patient. ROWAN CRONIN DO [place], [place] PROGRESS NOTE NAME: JAK BAPTISTE UNIT #: [id number] ROOM: 416 DOCTOR: ROWAN CRONIN DO BIRTHDATE: [birth year] MEME LEONARD MD CM:XIN [id number] ROWAN CRONIN DO 02/20/17 0232 interface
--- NOTE | ~2017-02-17 | PR ---
[place], [place] PROGRESS NOTE NAME: JAK BAPTISTE [facility] #: [id number] UNIT #: [id number] ROOM: 416 DOCTOR: HORACIO HORN MDMEME BIRTHDATE: [birth year] DOS: 02/21/2017 PULMONARY ADDENDUM NOTE SUBJECTIVE: The patient was independently seen with nuhe-zj-lbuj encounter. History was confirmed for the patient. Physical examination performed. All the available labs for the patient were reviewed for the last 24 hours. The note done by the nuclear medical tech was approved. The assessment for the patient was personally done and any change in recommendation and medical management personally made as well. The patient has been noted with significant decrease in ambulation. The patient tried to walk yesterday, could not go far enough. He has been still requiring significant amount of oxygen supplementation with the nasal cannula about 5 to 6 liters and oxygenating between saturation 91-93% at rest. He has been noted chest congestion and not expectorating any sputum. The patient denies symptoms of chest pain or wheezing. Denies any edema, pain of the lower extremity. Denies symptoms of hemoptysis. The patient was also noted with a temperature elevation that occurred last evening of 101.3 degrees Fahrenheit as well. He denies any symptoms of headaches. General weakness and fatigue were reported. OBJECTIVE: VITAL SIGNS: Temperature max of 101.3 degrees Fahrenheit, later low-grade fever to normal temperature in the last 12 hours, respiratory rate 18-20, heart rate of 82-107, blood pressure 161/80-137/51. Pulse oxygen saturation of the patient recorded on 6 liters nasal cannula was 94% saturation to 89% saturation. HEENT: Shows head was atraumatic, eyes nonicterus. NECK: Supple. CARDIOVASCULAR: S1, S2 audible. LUNGS: The patient was noted with decreased breath sounds in the lungs bilaterally with scattered expiratory wheezing. There were no crackles. ABDOMEN: Soft, nontender. Moderate obesity. EXTREMITIES: The patient was noted with mild edema. VISIBLE SKIN: No lesions or rashes. MUSCULOSKELETAL: No deformities. CENTRAL NERVOUS SYSTEM: Intact. LABORATORY DATA: CBC of the patient this morning, WBC count 12.3, hemoglobin 12.1, hematocrit 36.7, platelet count was normal. Creatinine of the patient noted as normal. Urine for legionella antigen was noted as negative. Chest x-ray PA and lateral for the patient that was ordered this morning shows essentially improvement and resolution of the pulmonary infiltration. IMPRESSION: 1. The patient has been noted with persistent severe acute hypoxic respiratory failure at the present time. 2. Acute pneumonia, radiologically improving. The patient still noted with significant hypoxia. 3. General debility. 4. Elevation in temperature, which has resolved as well. Any additional infection certainly cannot be excluded. [place], [place] PROGRESS NOTE NAME: JAK BAPTISTE UNIT #: [id number] ROOM: [facility] DOCTOR: HORACIO HORN MD,MEME BIRTHDATE: [birth year] 5. Acute exacerbation of chronic obstructive pulmonary disease as well. PLAN OF TREATMENT: The patient will be started on intravenous corticosteroids today. The antibiotic spectrum for the patient will be also changed some with the discontinuation of Zithromax and addition of the doxycycline for strong gram-positive coverage including for MRSA. The patient will not be discharged home at this time, he was hoping to be discharged home. Titrate oxygen to maintain saturation 90% greater. In case of worsening of the hypoxia, certainly the patient will be started on BiPAP as well. Usual care, other plan of therapy and management. Supportive care and plan of management. Additional treatment changes will be done based on progression of the illness. Urine culture is also ordered to rule out any urinary tract infection or other sources of infection because of the fever. Radiologically, the pulmonary infiltration has been improved significantly. MEME LEONARD MD CM:PNTRANS [id number] MEME HORN MD 02/22/17 0036 interface
--- NOTE | ~2017-02-17 | PR ---
[place], [place] PROGRESS NOTE NAME: JAK BAPTISTE [facility] #: [id number] UNIT #: [id number] ROOM: 416 DOCTOR: HORACIO HORN MD,MEME BIRTHDATE: [birth year] DOS: 02/24/2017 PULMONARY PROGRESS NOTE SUBJECTIVE: He has been noted comfortable at this time. Shortness of breath has been slowly resolving. The cough has been noted intermittent. Sputum expectoration, but not noted severe. Denies any wheezing. Still noted general weakness and fatigue. OBJECTIVE: VITAL SIGNS: Which was recorded for the patient showed the temperature to be noted as normal, the respiratory rate of the patient recorded as 18, heart rate 70, blood pressure 120/76. The pulse oxygen saturation of the patient on 4 liters nasal cannula 95% saturation. HEENT: Showed no acute change. NECK: Supple. CARDIOVASCULAR: S1, S2 audible. LUNGS: The patient was noted without any crackles. Expiratory wheezing was noted, which has been slowly improving. ABDOMEN: Soft, nontender. Bowel sounds present. EXTREMITIES: The patient was noted without any acute edema, clubbing or cyanosis. MUSCULOSKELETAL: No deformities. SKIN: No lesions or rashes. LABORATORY DATA: Arterial blood gas that I ordered for the patient to correctly assess this patient's oxygen content in the blood was noted with pH of 7.40, pCO2 of 44.8, pO2 67.5. BMP this morning: BUN 37, creatinine normal, glucose 116. CBC this morning: WBC count elevated 20.3, hemoglobin 12.9, hematocrit 38.8, platelet count 425,000. IMPRESSION: 1. The patient has been currently with slow resolution of acute pneumonia with improvement noted slowly with acute on chronic hypercapnic respiratory failure with acute hypoxic respiratory failure, slowly. 2. Severe debility secondary to current acute illness of the patient's respiratory tract. 3. History of nicotine abuse. 4. Past history of dysphagia. PLAN OF MANAGEMENT: Continuation of the current bronchodilators and oxygen supplementation. Monitor leukocytosis. Bronchodilator to be continued. Current dose of Solu-Medrol for the patient will be continued. Recommended the patient about the possibility of an assessment for senior living facility because of slow improvement, who continues to require IV therapy, physical therapy and occupation therapy. All other supportive therapy, plan of management as well. Usual care with other treatment for the patient to be continued as in progress. Additional treatment changes need to be done based on progression of the illness. [place], [place] PROGRESS NOTE NAME: JAK BAPTISTE UNIT #: [id number] ROOM: [facility] DOCTOR: MEME TAMAYO MD BIRTHDATE: [birth year] MEME LEONARD MD CM:PNMARIELLA [phone] MEME HORN MD 02/24/17 2322 interface
--- NOTE | ~2017-02-17 | PR ---
[place], [place] PROGRESS NOTE NAME: JAK BAPTISTE UNIT #: [id number] ROOM: 416 DOCTOR: ROWAN CRONIN DO BIRTHDATE: [birth year] DOS: 02/27/2017 SUBJECTIVE: The patient is seen and examined at bedside. The patient is sitting upright in no acute distress. The patient reports that he continues to have improved respiratory symptoms; however, continues to have shortness of breath, cough and some mild wheezing. No new complaints at this time. The patient reports that will abstain from smoking and that he will make an appointment to follow with Dr. Leonard tomorrow after getting home, to be seen in the outpatient clinic. No new change to the plan with the patient for today. OBJECTIVE: VITAL SIGNS: Temperature 97.9, pulse is 52, respirations 20, blood pressure 141/81 and pulse ox is 95% on 4 liters nasal cannula. GENERAL: Awake, alert and oriented x 3, no acute distress. HEENT: Eyes are clear. No injection. Nares are patent. Mucous membranes are moist. NECK: Supple, nontender. CARDIOVASCULAR: Regular rate and rhythm, no murmurs, gallops or rubs. PULMONARY: Mild expiratory wheezing. No rales or rhonchi. ABDOMEN: Soft, nontender with positive bowel sounds. LABORATORY DATA: White count 15.8, hemoglobin 13.6, hematocrit 40.9, platelets count 490. Chemistries, electrolytes were normal. Sputum culture from the 9th shows moderate yeast. IMPRESSION: 1. Acute on chronic obstructive pulmonary disease. 2. Acute hypoxia with hypercapnia. 3. Nicotine abuse. 4. Resolving bilateral lower lobe pneumonia. PLAN: The patient is medically cleared by pulmonary standpoint for discharge with followup outpatient in 1-2 weeks. Continue with antibiotics, steroids outpatient and call Dr. Leonard's if symptoms worsen. We recommend that the patient abstain from smoking completely for the best prognosis. ROWAN CRONIN DO [place], [place] PROGRESS NOTE NAME: JAK BAPTISTE UNIT #: [id number] ROOM: 416 DOCTOR: ROWAN CRONIN DO BIRTHDATE: [birth year] MEME LEONARD MD CM:XIN [id number] ROWAN CRONIN DO 02/27/17 2251 interface
--- NOTE | ~2017-02-17 | PR ---
[place], [place] PROGRESS NOTE NAME: JAK BAPTISTE UNIT #: [id number] ROOM: 416 DOCTOR: MEHRDAD DO,ROWAN BIRTHDATE: [birth year] DOS: 02/25/2017 SUBJECTIVE: The patient is seen and examined at bedside. The patient was in no acute distress. The patient has no new complaints at this time. The patient reports that his shortness of breath has been improving. The patient refuses SNF to the primary team today. The patient desires to go home. The patient continues with mild weakness and fatigue. OBJECTIVE: VITAL SIGNS: Temperature 98.4, pulse is 87, respirations 18, blood pressure 135/76, pulse ox 92% on 4 liters nasal cannula. GENERAL: The patient is alert and oriented times 3, no acute distress. HEENT: Shows no acute changes. Eyes are clear. No injection. Nares are patent. Oral mucosa is moist. NECK: Supple, nontender. CARDIOVASCULAR: S1 and S2 . LUNGS: No crackles, expiratory wheezing in all lung robertson with moderate improvement. ABDOMEN: Soft, nontender, positive bowel sounds. EXTREMITIES: No cyanosis, clubbing or edema. MUSCULOSKELETAL: No deformity. SKIN: No rashes or lesions. MICRO: Sputum culture from the 9th shows normal norman with moderate yeast, no microorganisms were appreciated. Blood cultures remain negative. Strep swab was negative. Flu swab was negative. IMPRESSION: 1. Slow resolution of acute pneumonia with chronic hypercapnic respiratory failure and chronic hypoxia. 2. Severe debility. 3. Nicotine abuse. 4. Dysphagia. PLAN OF CARE: Continue with bronchodilators, oxygen supplementation, and Solu-Medrol. It is our recommendation patient SNF for rehabilitation; however, the patient refuses that at this time. We will continue to follow the patient until we feel like the patient is clinically stable for discharge, will likely require a few more days inpatient care before patient can be stable for discharge home. No changes to current plan at this time. ROWAN CRONIN DO [place], [place] PROGRESS NOTE NAME: JAK BAPTISTE UNIT #: [id number] ROOM: [facility] DOCTOR: ROWAN CRONIN DO BIRTHDATE: [birth year] MEME LEONARD MD CM:XIN [id number] ROWAN CRONIN DO 02/25/17 1503 interface
[2017-02-17 11:49] VITALS: BP 110/62
[~2017-02-17 11:49] MED LIST changes: +ASPIRIN ADULT L81 M1 PO; +CONTRAVE ER 8-1 EACH PO; +DOXYCYCLINE100 M3 PO; +IBU800 MG PO; +INCRUSE ELLI62.5 MCG INH; +MELATONIN10 M4 PO; +SYMB160 INH
[2017-02-17] MEDS ORDERED: CONTRAVE ER 8-1 EACH PO (12:21)
[2017-02-17] MEDS ORDERED: ZOLOFT25 MG PO (12:21)
[2017-02-17] MEDS ORDERED: ZOLOFT50 MG PO (12:22)
[2017-02-17] MEDS ORDERED: CETIRIZINE10 MG PO (12:22)
[2017-02-17] MEDS ORDERED: INCRUSE ELLI62.5 MCG PO (12:23)
[2017-02-17 12:33] LABS: BASO % 0.1 % (0.0-1.0); EOS # 0.1 10*3/uL (0.0-0.4); EOS % 0.9 % (1.0-4.0); HEMATOCRIT 38.9 % (42.0-52.0); HEMOGLOBIN 12.8 g/dl (14.0-18.0); LYMPH # 1.1 10*3/uL (1.3-4.4); LYMPH % 16.2 % (27.0-41.0); MEAN CELL VOLUME 97.7 fl (80.0-94.0); MEAN CORPUSCULAR HGB 32.2 pg (27.0-31.0); MEAN CORPUSCULAR HGB CONC 32.9 g/dl (33.0-37.0); MEAN PLATELET VOLUME 9.8 fl (9.6-12.3); MONO # 0.8 10*3/uL (0.1-1.0); MONO % 12.2 % (3.0-9.0); NEUT # 4.7 10*3/uL (2.3-7.9); NEUT % 70.3 % (47.0-73.0); PLATELET COUNT AUTOMATED 174 10*3/uL (130-400); RED BLOOD COUNT 3.98 10*6/uL (4.50-5.90); RED CELL DISTRI WIDTH 13.2 % (0-14.5); WHITE BLOOD COUNT 6.7 10*3/uL (4.8-10.8)
[2017-02-17 12:49] LABS: ALBUMIN 2.8 gm/dl (3.1-4.5); ALKALINE PHOSPHATASE 89 U/L (45-117); BUN 33 mg/dl (7-24); CHLORIDE 105 mmol/L (98-107); CREATININE 1.31 mg/dL (0.70-1.30); POTASSIUM 3.8 mmol/L (3.5-5.1); SGOT/AST 27 IU/L (3-35); SGPT/ALT 16 U/L (12-78); SODIUM 139 mmol/L (136-145); TOTAL PROTEIN 6.9 gm/dL (6.4-8.2); TROPONIN I < 0.015 ng/ml (<0.045)
[2017-02-17 13:44] VITALS: BP 126/67
[2017-02-17 14:14] VITALS: BP 126/54
[2017-02-17 14:45] VITALS: BP 125/60
[2017-02-17] MEDS ORDERED: XANAX0.5 MG PO (15:40)
[2017-02-17 15:53] LABS: BILIRUBIN NEGATIVE (NEGATIVE); BLOOD NEGATIVE (NEGATIVE); CLARITY SL CLOUDY (CLEAR); COLOR YELLOW (YELLOW); GLUCOSE NEGATIVE (NEGATIVE); KETONE NEGATIVE (NEGATIVE); LEUKO ESTERASE NEGATIVE (NEGATIVE); NITRITE NEGATIVE (NEGATIVE); PH 5.5 (5.0-9.0); UROBILINOGEN 0.2 E.U./dl (0.2-1.0)
[2017-02-17 16:00] VITALS: BP 121/63
[2017-02-17 16:03] LABS: BACTERIA TRACE
[2017-02-17 16:21] LABS: ABG HCO3 24.9 mmol/l (22-26); ABG O2 SATURATION 92.1 % (95-97); ARTERIAL BLOOD GAS PCO2 43.2 mmHg (35-45); ARTERIAL BLOOD GAS PH 7.376 (7.35-7.45); ARTERIAL BLOOD GAS PO2 64.6 mmHg (80-90)
[2017-02-17 20:00] VITALS: BP 134/63
[2017-02-18] VITALS: BP 138/64
[2017-02-18 06:19] LABS: HEMATOCRIT 35.7 % (42.0-52.0); HEMOGLOBIN 11.9 g/dl (14.0-18.0); LYMPH # 0.5 10*3/uL (1.3-4.4); LYMPH % 15.7 % (27.0-41.0); MEAN CELL VOLUME 96.2 fl (80.0-94.0); MEAN CORPUSCULAR HGB 32.1 pg (27.0-31.0); MEAN CORPUSCULAR HGB CONC 33.3 g/dl (33.0-37.0); MEAN PLATELET VOLUME 9.8 fl (9.6-12.3); MONO # 0.4 10*3/uL (0.1-1.0); MONO % 12.2 % (3.0-9.0); NEUT # 2.4 10*3/uL (2.3-7.9); NEUT % 71.2 % (47.0-73.0); PLATELET COUNT AUTOMATED 185 10*3/uL (130-400); RED BLOOD COUNT 3.71 10*6/uL (4.50-5.90); RED CELL DISTRI WIDTH 13.1 % (0-14.5); WHITE BLOOD COUNT 3.4 10*3/uL (4.8-10.8)
[2017-02-18 06:21] LABS: ALBUMIN 2.6 gm/dl (3.1-4.5); CHLORIDE 102 mmol/L (98-107); CHOLESTEROL 156 mg/dL (<200); CREATININE 1.06 mg/dL (0.70-1.30); PHOSPHOROUS 2.2 mg/dL (2.5-4.9); POTASSIUM 3.5 mmol/L (3.5-5.1); SGOT/AST 18 IU/L (3-35); SGPT/ALT 16 U/L (12-78); SODIUM 139 mmol/L (136-145); TRIGLYCERIDES 81 mg/dl (<150); VLDL CHOLESTEROL 16 mg/dL (6-40)
[2017-02-18 06:29] LABS: ALKALINE PHOSPHATASE 80 U/L (45-117); FREE T4 1.09 ng/dl (0.76-1.46); HDL CHOLESTEROL 83 mg/dl (40-60); LDL CHOLESTEROL 57 mg/dL (9-159); THYROID STIM HORMONE (HS) 0.261 uIU/ml (0.358-4.75); TOTAL PROTEIN 6.3 gm/dL (6.4-8.2)
[2017-02-18 07:00] LABS: BUN 23 mg/dl (7-24)
[2017-02-18 07:02] LABS: VITAMIN D, 25-HYDROXY 23.6 ng/mL (30-100)
[2017-02-18 08:00] VITALS: BP 149/72
[2017-02-18 12:00] VITALS: BP 134/66
[2017-02-18 16:00] VITALS: BP 133/66
[2017-02-18 20:00] VITALS: BP 169/87
[2017-02-19] VITALS: BP 134/77
[2017-02-19 08:00] VITALS: BP 124/68
[2017-02-19 12:00] VITALS: BP 116/86
[2017-02-19 16:00] VITALS: BP 120/69
[2017-02-19 20:08] VITALS: BP 140/60
[2017-02-20] VITALS: BP 143/69
[2017-02-20 08:00] VITALS: BP 148/87
[2017-02-20 12:00] VITALS: BP 128/60
[2017-02-20 16:00] VITALS: BP 127/77
[2017-02-20 20:00] VITALS: BP 161/82
[2017-02-21] VITALS: BP 137/51
[2017-02-21 04:01] VITALS: BP 122/79
[2017-02-21 05:36] LABS: CREATININE 1.02 mg/dL (0.70-1.30)
[2017-02-21 06:10] LABS: BASO % 0.2 % (0.0-1.0); EOS # 0.2 10*3/uL (0.0-0.4); EOS % 1.3 % (1.0-4.0); HEMATOCRIT 36.7 % (42.0-52.0); HEMOGLOBIN 12.1 g/dl (14.0-18.0); LYMPH # 1.1 10*3/uL (1.3-4.4); LYMPH % 8.8 % (27.0-41.0); MEAN CELL VOLUME 96.3 fl (80.0-94.0); MEAN CORPUSCULAR HGB 31.8 pg (27.0-31.0); MEAN PLATELET VOLUME 9.7 fl (9.6-12.3); MONO # 1.5 10*3/uL (0.1-1.0); MONO % 11.9 % (3.0-9.0); NEUT # 9.5 10*3/uL (2.3-7.9); NEUT % 77.4 % (47.0-73.0); PLATELET COUNT AUTOMATED 238 10*3/uL (130-400); RED BLOOD COUNT 3.81 10*6/uL (4.50-5.90); RED CELL DISTRI WIDTH 12.9 % (0-14.5); WHITE BLOOD COUNT 12.3 10*3/uL (4.8-10.8)
[2017-02-21 08:00] VITALS: BP 132/72
[2017-02-21 16:00] VITALS: BP 122/68
[2017-02-21 20:00] VITALS: BP 138/70
[2017-02-22] VITALS: BP 135/63
[2017-02-22 08:00] VITALS: BP 132/65
[2017-02-22 16:00] VITALS: BP 129/61
[2017-02-22 20:00] VITALS: BP 141/56
[2017-02-23] VITALS: BP 129/66
[2017-02-23 05:58] LABS: HEMOGLOBIN 12.2 g/dl (14.0-18.0); MEAN CELL VOLUME 96.9 fl (80.0-94.0); MEAN CORPUSCULAR HGB 31.9 pg (27.0-31.0); MEAN PLATELET VOLUME 9.1 fl (9.6-12.3); PLATELET COUNT AUTOMATED 349 10*3/uL (130-400); RED BLOOD COUNT 3.82 10*6/uL (4.50-5.90); RED CELL DISTRI WIDTH 12.6 % (0-14.5); WHITE BLOOD COUNT 15.8 10*3/uL (4.8-10.8)
[2017-02-23 06:20] LABS: BUN 34 mg/dl (7-24); CHLORIDE 101 mmol/L (98-107); POTASSIUM 4.2 mmol/L (3.5-5.1); SODIUM 139 mmol/L (136-145)
[2017-02-23 06:40] LABS: PLATELET SUFFICIENCY NORMAL (NORMAL); TOTAL CELLS COUNTED 100 #CELLS
[2017-02-23 08:00] VITALS: BP 136/69
[2017-02-23 12:00] VITALS: BP 135/61
[2017-02-23 16:00] VITALS: BP 123/70
[2017-02-23 20:00] VITALS: BP 134/56
[2017-02-24] VITALS: BP 130/61
[2017-02-24 06:55] LABS: HEMATOCRIT 38.8 % (42.0-52.0); HEMOGLOBIN 12.9 g/dl (14.0-18.0); MEAN CELL VOLUME 97.7 fl (80.0-94.0); MEAN CORPUSCULAR HGB 32.5 pg (27.0-31.0); MEAN CORPUSCULAR HGB CONC 33.2 g/dl (33.0-37.0); MEAN PLATELET VOLUME 9.4 fl (9.6-12.3); PLATELET COUNT AUTOMATED 425 10*3/uL (130-400); RED BLOOD COUNT 3.97 10*6/uL (4.50-5.90); RED CELL DISTRI WIDTH 12.7 % (0-14.5); WHITE BLOOD COUNT 20.3 10*3/uL (4.8-10.8)
[2017-02-24 07:25] LABS: BUN 37 mg/dl (7-24); CHLORIDE 102 mmol/L (98-107); CREATININE 1.08 mg/dL (0.70-1.30); POTASSIUM 4.4 mmol/L (3.5-5.1); SODIUM 140 mmol/L (136-145)
[2017-02-24 07:30] LABS: TOTAL CELLS COUNTED 100 #CELLS
[2017-02-24 07:31] LABS: PLATELET SUFFICIENCY HIGH (NORMAL); ROULEAUX SLIGHT
[2017-02-24 08:00] VITALS: BP 118/67
[2017-02-24 11:47] LABS: ABG BASE EXCESS 2.5 mmol/L (-2.0-2.0); ABG HCO3 27.3 mmol/l (22-26); ABG O2 SATURATION 91.4 % (95-97); ARTERIAL BLOOD GAS PCO2 44.8 mmHg (35-45); ARTERIAL BLOOD GAS PH 7.401 (7.35-7.45); ARTERIAL BLOOD GAS PO2 67.5 mmHg (80-90)
[2017-02-24 12:00] VITALS: BP 120/76
[2017-02-24 16:00] VITALS: BP 139/66
[2017-02-24 20:00] VITALS: BP 144/62
[2017-02-25] VITALS: BP 128/66
[2017-02-25 08:00] VITALS: BP 126/66
[2017-02-25 12:00] VITALS: BP 135/76
[2017-02-25 16:00] VITALS: BP 144/72
[2017-02-25 20:00] VITALS: BP 144/60
[2017-02-26] VITALS: BP 148/65
[2017-02-26 08:00] VITALS: BP 139/71
[2017-02-26 12:00] VITALS: BP 121/68
[2017-02-26 16:00] VITALS: BP 136/86
[2017-02-26 20:00] VITALS: BP 135/65
[2017-02-27 00:05] VITALS: BP 135/69
[2017-02-27 06:58] LABS: BASO % 0.1 % (0.0-1.0); HEMATOCRIT 40.9 % (42.0-52.0); HEMOGLOBIN 13.6 g/dl (14.0-18.0); LYMPH # 1.4 10*3/uL (1.3-4.4); MEAN CORPUSCULAR HGB 31.9 pg (27.0-31.0); MEAN CORPUSCULAR HGB CONC 33.3 g/dl (33.0-37.0); MEAN PLATELET VOLUME 9.3 fl (9.6-12.3); MONO # 0.9 10*3/uL (0.1-1.0); MONO % 5.7 % (3.0-9.0); NEUT # 13.4 10*3/uL (2.3-7.9); NEUT % 84.4 % (47.0-73.0); PLATELET COUNT AUTOMATED 490 10*3/uL (130-400); RED BLOOD COUNT 4.26 10*6/uL (4.50-5.90); RED CELL DISTRI WIDTH 12.6 % (0-14.5); WHITE BLOOD COUNT 15.8 10*3/uL (4.8-10.8)
[2017-02-27 07:29] LABS: CREATININE 1.07 mg/dL (0.70-1.30)
[2017-02-27 08:00] VITALS: BP 141/81
[2017-02-27] MEDS ORDERED: Vitamin D PO (09:55)
[2017-02-27] MEDS ORDERED: PREDNISONE10 MG PO (09:55)
[2017-02-27] MEDS ORDERED: DOXYCYCLINE MO100 M1 PO (09:55)
[2017-02-27] MEDS ORDERED: VITAMIN D-32000 UNIT PO (09:56)
[2017-02-27 12:00] VITALS: BP 138/78
== END 2017-02-27 14:10 | disposition home health service (06) | DRG 871 ==
LOC: ED 11:49 → 4E 13:02 → EDHOLD 13:02 → 4E 13:15
PROVIDERS: Internal Medicine; Internal Medicine Critical Care Medicine; Nurse Practitioner Family; Registered Nurse; Student in an Organized Health Care Education/Training Program
PROC: BD11YZZ Fluoroscopy of Esophagus using Other Contrast (ICD-10-PCS; principal; 2017-02-19)
DX: A41.9 Sepsis, unspecified organism (principal); N17.1 Acute kidney failure with acute cortical necrosis; J96.21 Acute and chronic respiratory failure with hypoxia; J69.0 Pneumonitis due to inhalation of food and vomit; E44.0 Moderate protein-calorie malnutrition; J15.9 Unspecified bacterial pneumonia; E83.39 Other disorders of phosphorus metabolism; R13.10 Dysphagia, unspecified; Z99.81 Dependence on supplemental oxygen; J96.22 Acute and chronic respiratory failure with hypercapnia; J44.0 Chronic obstructive pulmonary disease with (acute) lower respiratory infection; J44.1 Chronic obstructive pulmonary disease with (acute) exacerbation; J98.11 Atelectasis; K21.9 Gastro-esophageal reflux disease without esophagitis; I10 Essential (primary) hypertension; Z66 Do not resuscitate; Z51.5 Encounter for palliative care; F41.9 Anxiety disorder, unspecified; M19.90 Unspecified osteoarthritis, unspecified site; F32.9 Major depressive disorder, single episode, unspecified; F43.10 Post-traumatic stress disorder, unspecified; Z96.659 Presence of unspecified artificial knee joint; R53.81 Other malaise; F17.210 Nicotine dependence, cigarettes, uncomplicated; D64.9 Anemia, unspecified; Z85.528 Personal history of other malignant neoplasm of kidney; Z90.49 Acquired absence of other specified parts of digestive tract; Z90.5 Acquired absence of kidney; Z98.52 Vasectomy status; Z82.49 Family history of ischemic heart disease and other diseases of the circulatory system; Z82.5 Family history of asthma and other chronic lower respiratory diseases; Z68.32 Body mass index [BMI] 32.0-32.9, adult; Z88.6 Allergy status to analgesic agent; Z88.8 Allergy status to other drugs, medicaments and biological substances; Z79.82 Long term (current) use of aspirin; Z79.899 Other long term (current) drug therapy

== ENCOUNTER 2017-03-17 16:02 | Inpatient (IN) | payer OTHER, MEDICARE ==
[~2017-03-17] VITALS: Ht 187.9 cm; Wt 122.0 kg
--- NOTE | ~2017-03-17 | PR ---
[place], [place] PROGRESS NOTE NAME: JAK BAPTISTE [facility] #: [id number] UNIT #: [id number] ROOM: 411 DOCTOR: MEME TAMAYO MD BIRTHDATE: [birth year] DOS: 03/20/2017 SUBJECTIVE: He has been currently noted about the same without any distress. The of the patient is concerned about weight gain. She was stating edema of the lower extremity. He is n.p.o. past midnight for bronchoscopy today. The patient does have symptoms of headache, diplopia, nausea or vomiting. The cough has been noted the same nonproductive most of the time. Shortness of breath seemed to be stable. There were symptoms of chest pain or any abdominal pain reported by the patient. Remaining systems were reviewed. They were noted all negative. OBJECTIVE: VITAL SIGNS: Normal temperature, respiratory rate of 20, heart rate 68, blood pressure 147/58. The pulse oxygen saturation on 3 liters nasal cannula 94% saturation. HEENT: Head was atraumatic. Eyes: Nonicterus. NECK: Supple. CARDIOVASCULAR: S1, S2 is audible. LUNGS: The patient was noted without any wheezing or crackles at this time. ABDOMEN: Soft, nontender. EXTREMITIES: The patient was noted with minimal edema. SKIN: No lesions or rashes. MUSCULOSKELETAL: Without any acute deformities. CENTRAL NERVOUS SYSTEM: Intact. IMPRESSION: 1. The patient who has been currently noted at this time with peripheral edema, fluid retention with acute exacerbation of chronic obstructive pulmonary disease at this time as well. 2. Cough, most likely related to the mucus impaction of the major airways. 3. Severe debility still remains persistent with partial improvement. 4. Stable chronic hypoxic respiratory failure. PLAN OF TREATMENT: The patient was ordered 2 doses of Lasix 40 mg daily for the next 2 days. Proceed with bronchoscopy as planned. Continuation of the current dose of corticosteroids and bronchodilators. Any management changes necessary will be done after completion of bronchoscopy. Continue in the meantime, DVT prophylaxis, and other plan of management. [place], [place] PROGRESS NOTE NAME: JAK BAPTISTE UNIT #: [id number] ROOM: 411 DOCTOR: MEME TAMAYO MD BIRTHDATE: [birth year] MEME LEONARD MD CM:PNTRANS [id number] MEME HORN MD 03/20/17 1834 interface
--- NOTE | ~2017-03-17 | PR ---
[place], [place] PROGRESS NOTE NAME: JAK BAPTISTE [facility] #: [id number] UNIT #: [id number] ROOM: 411 DOCTOR: HORACIO HORN MD,MEME BIRTHDATE: [birth year] DOS: 03/21/2017 SUBJECTIVE: He has been complaining of general weakness, but significant improvement noted after bronchoscopy. The cough has been improved markedly. Shortness of breath was also improving. There were no symptoms of chest pain or any abdominal pain. OBJECTIVE: VITAL SIGNS: For the patient, which has been recorded for the patient shows the temperature noted as normal. The respiratory rate of the patient recorded as 18, heart rate 61, blood pressure 132/60. The pulse oxygen saturation noted on 4 liters nasal cannula 95% saturation. HEENT: Examination shows head was atraumatic. Eyes nonicterus. NECK: Supple. CARDIOVASCULAR: S1, S2 are audible. LUNGS: The patient was noted without any wheezing or crackles at the present time. ABDOMEN: Soft, nontender. IMPRESSION: Resolving acute bronchitis, exacerbation of chronic obstructive pulmonary disease, general debility, and muscle deconditioning was also noted. RECOMMENDATIONS: The patient could be considered for discharge with home health physical therapy since the patient has not been approved for the transfer and admission to the care home facility. Tapering dose of prednisone and antibiotic orally. Outpatient followup in the next couple of weeks was recommended. MEME LEONARD MD CM:PNTRANS 1522 [id number] MEME HORN MD 03/22/17 0014 interface
--- NOTE | ~2017-03-17 | EKG ---
[place], [place] ELECTROCARDIOGRAM REPORT NAME: JAK BAPTISTE UNIT #: [id number] ROOM: 411 DOCTOR: HORACIO HORN MD,MEME BIRTHDATE: [birth year] DOS: 03/17/2017 Electrocardiogram done on 03/17/2017. Mild sinus bradycardia noted. Heart rate 53 beats per minute. MEME LEONARD MD CM:EKGRPT:ELECTROCARDIOGRAM REPORT [id number] 1528 MEME HORN MD
--- NOTE | ~2017-03-17 | CON ---
[place], [place] REPORT OF CONSULTATION NAME: JAK BAPTISTE [facility] #: [id number] UNIT #: [id number] ROOM: 411 DOCTOR: HORACIO HORN MDMEME BIRTHDATE: [birth year] DOS: 03/19/2017 PULMONARY CONSULTATION EVALUATION AND MANAGEMENT CONSULTATION REQUESTED BY: Hospitalist Service. REASON FOR CONSULTATION: Assessment of the current ongoing acute respiratory symptoms as well with shortness of breath and others. HISTORY OF PRESENT ILLNESS: This is a 66-year-old white male who has been admitted to the hospital in 02/2017. The patient was noted at that time with acute severe hypoxic and hypercapnic respiratory failure, exacerbation of chronic obstructive pulmonary disease and acute pneumonia with general weakness and fatigue. The patient was admitted to the hospital and treated for that. He was noted with persistent oxygen requirement. The patient recommended detention facility placement, but the insurance did not authorized that. The patient finally went home. He presented to the hospital again on 03/18/2017 with progressive general weakness and fatigue and inability to function. The patient was also noted symptoms of coughing, which has been noted severe and exacerbation, occurring at nighttime. Sputum expectoration noted none. He was also noted with symptoms of shortness of breath that occurs with moderate exertion activity, intermittent wheezing was also reported. The patient denies any symptoms of chest pain or hemoptysis. He has been currently sitting on the chair this morning for assessment. He stated symptoms have been noted partially improved, but still noted significant overall generalized weakness. The patient's coughing continued to remains persistent occurring at night. He has been using his oxygen supplementation. REVIEW OF SYSTEMS: CONSTITUTIONAL: Fatigue and tiredness noted onset of fever or chills. EYES: Denies any burning, redness, tenderness. ENT: Denies sore throat, hoarseness, otalgia, postnasal drainage or epistaxis. CARDIOVASCULAR: Denies any pain, edema, pain of the lower extremity. GASTROINTESTINAL: Dysphagia, nausea, vomiting, diarrhea, abdominal pain, hematemesis, melena, hematochezia, abnormal weight loss, history dysphagia which was noted previously has been resolved in the past couple of years. GENITOURINARY SYMPTOMS: Dysuria, suprapubic pain, hematuria. MUSCULOSKELETAL: Denies acute joint pain, redness, tenderness, history of arthritis was known. SKIN: Denies abnormal lesions or rashes. CENTRAL NERVOUS SYSTEM: Overall generalized weakness and fatigue were reported in all of the muscle, but there were no focal neurologic deficits reported by the patient. Remaining systems were reviewed they were noted all negative. PAST MEDICAL HISTORY: 1. Noted with chronic hypoxic respiratory failure, use of oxygen supplementation 3-4 liter nasal continuous. 2. History of severe chronic obstructive pulmonary disease. [place], [place] REPORT OF CONSULTATION NAME: JAK BAPTISTE UNIT #: [id number] ROOM: 411 DOCTOR: MEME TAMAYO MD BIRTHDATE: [birth year] 3. Recent pneumonia for this patient, which has been treated in 02/2017. 4. Previous history of recurrent pneumonia, oropharyngeal dysphagia, which seemed to be resolved since 2014. 5. History of PTSD. 6. Renal cell cancer in 2010 on the right side. 7. Essential hypertension. 8. Generalized anxiety disorder. 9. History of intermittent nicotine use. PAST SURGICAL HISTORY: 1. Right nephrectomy in 2010 for cancer management. 2. Left total knee replacement. 3. History of vasectomy. 4. Therapeutic bronchoscopies. 5. PEG tube insertion and removal. 6. Upper endoscopy. 7. Tonsillectomy. 8. Fistulectomy. 9. Appendectomy. SOCIAL HISTORY: The patient is and lives at home. Denies history of alcohol use, illicit drug use. Tobacco use noted from age of [age] years old a pack of cigarettes per day with intermittent tobacco use was reported later on. He has worked in the [employer] for about 12 years. Denies history of chronic alcohol use or any illicit drug use. FAMILY HISTORY: His father at age of 8080 years old, complication related to abdominal aortic aneurysm. Mother at age of 7777 years old, complication related to the COPD. CURRENT MEDICATIONS: Administered noted use of lisinopril, hydrochlorothiazide, vitamin D, Zyrtec, aspirin, Norvasc, Lovenox for DVT prophylaxis, gabapentin, sertraline, metoprolol tartrate, fluconazole and other p.r.n. medications. DRUG ALLERGIES: THE PATIENT NOTED ALLERGY TO THE PERCOCET. PHYSICAL EXAMINATION: GENERAL: A 66-year-old white male currently noted comfortable sitting on the chair without any distress. Height of 6 feet 3 inches, weight of 269 pounds, BMI 34. VITAL SIGNS: The patient with normal temperature, respiratory rate 18-20, heart rate of 54-63, blood pressure 102/55 to 148/72. Pulse oxygen saturation on 4 liters nasal cannula was noted as 95% room air 85%. HEENT: Moderate obesity. Head was atraumatic. Eyes nonicterus. NECK: Supple. CARDIOVASCULAR: S1, S2 audible. LUNGS: The patient noted with mild to moderate expiratory wheezing in the lungs bilaterally. ABDOMEN: Soft, nontender. It was flat. No tenderness. EXTREMITIES: The patient noted without any edema, clubbing or cyanosis. [place], [place] REPORT OF CONSULTATION NAME: JAK BAPTISTE UNIT #: [id number] ROOM: 411 DOCTOR: HORACIO HORN MD,[facility] BIRTHDATE: [birth year] CENTRAL NERVOUS SYSTEM: Cranial nerves 2-12 intact. MUSCULOSKELETAL: No deformities. SKIN: Showed no lesions or rashes. LABORATORY DATA: CBC 03/17/2017. The patient shows WBC count normal, hemoglobin 10.4, hematocrit 32.4, platelet count normal. MCV 100.3. Lactic acid on 03/17/2017 noted normal. PT and PTT on 03/17/2017 normal. ProBNP 450, mildly elevated on admission. CMP of the patient, BUN 20, creatinine 1.29, sodium 135. Ethyl alcohol less than 5. Urine drug screen positive for benzodiazepine. CBC of the patient yesterday essentially remains the same as previously. BMP of the patient remains the same except CO2 of 35. Ultrasound of bilateral lower extremities was not noted any evidence of deep venous thrombosis. Chest x-ray just 1 view done as outpatient 03/17/2017 does not show any acute pulmonary abnormalities or infiltration. IMPRESSION: 1. Persistent cough with ongoing exacerbation of chronic obstructive pulmonary disease. 2. Chronic hypoxic respiratory failure, still requires oxygen supplementation. 3. General weakness and fatigue secondary to muscle decondition, possibility occult infection as the bronchitis can be completely excluded. 4. History of intermittent nicotine abuse as well. 5. Multiple medical illnesses the patient has reported previously. PLAN OF MANAGEMENT: The patient has been started on bronchodilators q.i.d. and q.4 hour p.r.n. for the wheezing Solu-Medrol will be started 40 mg daily as well. Therapeutic bronchoscopy plan to be done in the morning. Risk and benefits were explained. Consent was obtained. Continuation of other previous treatment as ongoing. Addition of the Dulera for this patient to direct palpation long-term management of his replacement for the Symbicort HFA inhaler from home. Other supportive therapy, plan of management and care plan. Usual care. Thanks for allowing me to participate in the care of this patient. MEME LEONARD MD CM:CONSTR:REPORT OF CONSULTATION 1513 03/20/17 0952 interface
--- NOTE | ~2017-03-17 | CON ---
[place], [place] REPORT OF CONSULTATION [id number] UNIT #: [id number] ROOM: 411 DOCTOR: JAK FUENTES MD BIRTHDATE: [birth year] DOS: 03/21/2017 CHIEF COMPLAINT: "I was having trouble breathing." HISTORY OF PRESENT ILLNESS: This is a 66-year-old white male who presented to [facility] with generalized weakness. The patient apparently had been feeling increasingly short of breath and very weak and lethargic and called EMS who brought him to the Emergency Room. The patient apparently was diagnosed with pneumonia in February,. They had recommended that he go to a long-term care facility; however, he did not pass the PASAR and was unable to go to the LTC and instead returned home. The patient's daughter who was in the room at the time of the evaluation reports from a psychiatric standpoint that the patient has been having significant and rather abrupt mental status changes. He has become increasingly more confused and disoriented. He has been experiencing significant visual hallucinations and in fact the chart indicates that the patient at one point was seeing a cat on his television, even though there was no cat there. MENTAL STATUS: The patient's mental status was limited due to the fact that he was very somnolent. He continued to doze off in mid sentence with me and was unable to focus. When I did get him to briefly focus, he did agree that he was experiencing visual hallucinations. PAST MEDICAL HISTORY: Remarkable for osteoarthritis, COPD, degenerative joint disease, GERD, history of rectal cancer and renal cell cancer, hypertension, moderate protein calorie malnutrition, PTSD, vitamin D deficiency and a history of depression. DIAGNOSIS: Brief psychotic disorder. PLAN: At this point in time, I have discontinued his Zoloft that he is on a subtherapeutic dose. He is also prescribed tramadol, which can adversely interact with the Zoloft, causing increased delirium. I have discontinued his Restoril as well as this longer acting sleeper is not well tolerated by the elderly. I will start him on a very low dose of Risperdal and have the dose increased gradually as needed and as tolerated. Serum ammonia level is actually normal at less than 10. I will go ahead and order a vitamin D and vitamin B12. Other laboratory examinations are essentially unremarkable. Should you require further intervention, please feel free to contact me at any time. [place], [place] REPORT OF CONSULTATION NAME: JAK BAPTISTE UNIT #: [id number] ROOM: 411 DOCTOR: JAK FUENTES MD BIRTHDATE: [birth year] JAK FUENTES MD CM:CONSTR:REPORT OF CONSULTATION 1012 03/21/17 1030 interface
--- NOTE | ~2017-03-17 | PROC NOTE ---
[place], [place] PROCEDURE NOTE NAME: JAK BAPTISTE [facility] #: [id number] UNIT #: [id number] ROOM: 411 DOCTOR: HORACIO HORN MD,MEME BIRTHDATE: [birth year] DOS: 03/20/2017 PROCEDURE: Bronchoscopy. PREOPERATIVE DIAGNOSIS: Persistent severe nonresolving cough. POSTOPERATIVE DIAGNOSES: Persistent severe nonresolving cough. DESCRIPTION OF PROCEDURE: Informed consent obtained for the patient. The patient brought to the OR and placed in supine position. Conscious sedation administered by the Anesthesia Department. After achieving proper sedation, airway introduced into the mouth. Bronchoscope advanced to the airway into laryngeal area. Epiglottis and vocal cords were seen. Bronchoscope advanced to the vocal cords into tracheal lumen. The tracheal lumen identified noted [id number] amount of thick mucus secretion suctioned out to the miriam level all secretions. The patient was extracted. The patient had sent it for culture. The patient noted moderate amount of plugging of the mucus. The patient ____ mostly in the basilar subsegment. Bronchial washing sent for this patient to the lab for all the cultures. Procedure well tolerated by the patient. Postoperative findings were discussed with the patient's family members in detail. At this time, no change in treatment will be necessary based on the current bronchoscopy assessment of the airway in patient after therapeutic bronchoscopy. MEME LEONARD MD CM:PROCNOTE:PROCEDURE NOTE 1300 1643 MEME HORN MD
[~2017-03-17 16:02] MED LIST changes: +CETIRIZINE10 MG PO; +DOXYCYCLINE MO100 M1 PO; +INCRUSE ELLI62.5 MCG PO; +VITAMIN D-32000 UNIT PO; +Vitamin D PO
[2017-03-17 16:24] VITALS: BP 141/98
[2017-03-17 17:02] LABS: BILIRUBIN NEGATIVE (NEGATIVE); BLOOD NEGATIVE (NEGATIVE); CLARITY CLEAR (CLEAR); COLOR YELLOW (YELLOW); GLUCOSE NEGATIVE (NEGATIVE); KETONE NEGATIVE (NEGATIVE); LEUKO ESTERASE NEGATIVE (NEGATIVE); NITRITE NEGATIVE (NEGATIVE); PH 6.5 (5.0-9.0); SPECIFIC GRAVITY <= 1.005 (1.005-1.030); UROBILINOGEN 0.2 E.U./dl (0.2-1.0)
[2017-03-17] MEDS ORDERED: VITAMIN D32000 UNI1 PO (17:06)
[2017-03-17 17:08] LABS: BACTERIA TRACE; EPITHELIAL CELLS 0-3
[2017-03-17] MEDS ORDERED: PREDNISONE10 MG PO (17:08)
[2017-03-17 17:30] LABS: BASO % 0.2 % (0.0-1.0); EOS # 0.5 10*3/uL (0.0-0.4); EOS % 4.5 % (1.0-4.0); HEMATOCRIT 32.4 % (42.0-52.0); HEMOGLOBIN 10.4 g/dl (14.0-18.0); LYMPH # 1.5 10*3/uL (1.3-4.4); LYMPH % 14.7 % (27.0-41.0); MEAN CELL VOLUME 100.3 fl (80.0-94.0); MEAN CORPUSCULAR HGB 32.2 pg (27.0-31.0); MEAN CORPUSCULAR HGB CONC 32.1 g/dl (33.0-37.0); MEAN PLATELET VOLUME 9.2 fl (9.6-12.3); MONO # 0.9 10*3/uL (0.1-1.0); MONO % 9.2 % (3.0-9.0); NEUT # 7.1 10*3/uL (2.3-7.9); NEUT % 71.1 % (47.0-73.0); PLATELET COUNT AUTOMATED 180 10*3/uL (130-400); RED BLOOD COUNT 3.23 10*6/uL (4.50-5.90); RED CELL DISTRI WIDTH 13.8 % (0-14.5)
[2017-03-17 17:34] VITALS: BP 126/71
[2017-03-17 17:38] LABS: ACT PARTIAL THROMBO TIME 29.9 SECONDS (20.8-31.5); INTERNATIONAL NORM RATIO 1.1 (2.0-3.5)
[2017-03-17 17:48] LABS: ALBUMIN 2.9 gm/dl (3.1-4.5); ALKALINE PHOSPHATASE 84 U/L (45-117); BUN 20 mg/dl (7-24); CHLORIDE 98 mmol/L (98-107); CREATININE 1.29 mg/dL (0.70-1.30); SGOT/AST 13 IU/L (3-35); SGPT/ALT 18 U/L (12-78); SODIUM 135 mmol/L (136-145); TOTAL PROTEIN 6.9 gm/dL (6.4-8.2)
[2017-03-17 17:49] LABS: TROPONIN I < 0.015 ng/ml (<0.045)
[2017-03-17 18:15] VITALS: BP 127/68
[2017-03-17 20:00] VITALS: BP 142/74
[2017-03-17] MEDS ORDERED: FLUCONAZOLE100 MG PO (20:48)
[2017-03-17 22:51] LABS: URINE AMPHETAMINES < 1000 (1000ng/ml); URINE BARBITURATES < 200 (200ng/ml); URINE BENZODIAZEPINES > 200 (200ng/ml); URINE CANNABINOIDS (THC) < 50 (50ng/ml); URINE COCAINE < 300 (300ng/ml); URINE METHADONE < 300 (300ng/ml); URINE OPIATES < 300 (300ng/ml)
[2017-03-17 22:58] LABS: URINE PHENCYCLIDINE < 25 (25ng/ml)
[2017-03-18] VITALS: BP 128/58
[2017-03-18 06:46] LABS: BASO % 0.3 % (0.0-1.0); EOS # 0.5 10*3/uL (0.0-0.4); HEMATOCRIT 30.8 % (42.0-52.0); LYMPH # 1.2 10*3/uL (1.3-4.4); LYMPH % 18.1 % (27.0-41.0); MEAN CELL VOLUME 101.3 fl (80.0-94.0); MEAN CORPUSCULAR HGB 32.9 pg (27.0-31.0); MEAN CORPUSCULAR HGB CONC 32.5 g/dl (33.0-37.0); MEAN PLATELET VOLUME 9.5 fl (9.6-12.3); MONO # 0.8 10*3/uL (0.1-1.0); MONO % 11.4 % (3.0-9.0); NEUT # 4.3 10*3/uL (2.3-7.9); NEUT % 62.9 % (47.0-73.0); PLATELET COUNT AUTOMATED 172 10*3/uL (130-400); RED BLOOD COUNT 3.04 10*6/uL (4.50-5.90); WHITE BLOOD COUNT 6.9 10*3/uL (4.8-10.8)
[2017-03-18 07:00] LABS: BUN 19 mg/dl (7-24); CHLORIDE 99 mmol/L (98-107); CREATININE 1.21 mg/dL (0.70-1.30); POTASSIUM 3.7 mmol/L (3.5-5.1); SODIUM 138 mmol/L (136-145)
[2017-03-18 07:06] LABS: TROPONIN I < 0.015 ng/ml (<0.045)
[2017-03-18 08:00] VITALS: BP 108/73
[2017-03-18 10:33] VITALS: BP 130/70
[2017-03-18 11:38] VITALS: BP 116/64
[2017-03-18 16:00] VITALS: BP 109/58
[2017-03-18 20:00] VITALS: BP 102/55
[2017-03-19] VITALS: BP 172/89
[2017-03-19 00:10] VITALS: BP 148/72
[2017-03-19 08:00] VITALS: BP 104/52
[2017-03-19 12:00] VITALS: BP 112/62
[2017-03-19 16:00] VITALS: BP 123/70
[2017-03-19 20:00] VITALS: BP 118/67
[2017-03-20] VITALS (9 sets, daily range): BP systolic 120–156; BP diastolic 53–92
[2017-03-21] VITALS: BP 120/68
[2017-03-21 06:17] LABS: BASO % 0.2 % (0.0-1.0); HEMATOCRIT 35.2 % (42.0-52.0); HEMOGLOBIN 11.6 g/dl (14.0-18.0); LYMPH # 0.7 10*3/uL (1.3-4.4); LYMPH % 5.2 % (27.0-41.0); MEAN CELL VOLUME 97.8 fl (80.0-94.0); MEAN CORPUSCULAR HGB 32.2 pg (27.0-31.0); MEAN PLATELET VOLUME 9.2 fl (9.6-12.3); MONO # 0.6 10*3/uL (0.1-1.0); MONO % 4.4 % (3.0-9.0); NEUT # 11.1 10*3/uL (2.3-7.9); NEUT % 89.6 % (47.0-73.0); PLATELET COUNT AUTOMATED 300 10*3/uL (130-400); RED CELL DISTRI WIDTH 13.5 % (0-14.5); WHITE BLOOD COUNT 12.4 10*3/uL (4.8-10.8)
[2017-03-21 06:40] LABS: BUN 29 mg/dl (7-24); CHLORIDE 98 mmol/L (98-107); SODIUM 136 mmol/L (136-145)
[2017-03-21 06:41] LABS: CREATININE 1.27 mg/dL (0.70-1.30)
[2017-03-21 08:00] VITALS: BP 117/77
[2017-03-21] MEDS ORDERED: PREDNISONE10 MG PO (11:44)
[2017-03-21] MEDS ORDERED: DUONEB 3 MG/3 ML3 M1 NEB (11:44)
[2017-03-21] MEDS ORDERED: RISPERIDONE0.5 MG PO (11:44)
[2017-03-21 12:00] VITALS: BP 132/60
[2017-03-21 13:23] LABS: VITAMIN D, 25-HYDROXY 24.7 ng/mL (30-100)
[2017-03-21 15:08] LABS: ACID FAST SMEAR Negative (.); ACID FAST SPEC PROCESSING Concentration (.)
== END 2017-03-21 14:36 | disposition other institution (70) | DRG 191 ==
LOC: ED 16:02 → 4E 18:13 → EDHOLD 18:13 → 4E 18:16
PROVIDERS: Emergency Medicine; Internal Medicine; Internal Medicine Critical Care Medicine; Psychiatry & Neurology Psychiatry
PROC: 0BC48ZZ Extirpation of Matter from Right Upper Lobe Bronchus, Via Natural or Artificial Opening Endoscopic (ICD-10-PCS; principal; 2017-03-20)
PROC: 0BC58ZZ Extirpation of Matter from Right Middle Lobe Bronchus, Via Natural or Artificial Opening Endoscopic (ICD-10-PCS; principal; 2017-03-20)
PROC: 0BC78ZZ Extirpation of Matter from Left Main Bronchus, Via Natural or Artificial Opening Endoscopic (ICD-10-PCS; principal; 2017-03-20)
PROC: 0BC88ZZ Extirpation of Matter from Left Upper Lobe Bronchus, Via Natural or Artificial Opening Endoscopic (ICD-10-PCS; principal; 2017-03-20)
PROC: 0BC18ZZ Extirpation of Matter from Trachea, Via Natural or Artificial Opening Endoscopic (ICD-10-PCS; principal; 2017-03-20)
PROC: 0BC68ZZ Extirpation of Matter from Right Lower Lobe Bronchus, Via Natural or Artificial Opening Endoscopic (ICD-10-PCS; principal; 2017-03-20)
PROC: 0BCB8ZZ Extirpation of Matter from Left Lower Lobe Bronchus, Via Natural or Artificial Opening Endoscopic (ICD-10-PCS; principal; 2017-03-20)
PROC: 0BC98ZZ Extirpation of Matter from Lingula Bronchus, Via Natural or Artificial Opening Endoscopic (ICD-10-PCS; principal; 2017-03-20)
PROC: 0BC38ZZ Extirpation of Matter from Right Main Bronchus, Via Natural or Artificial Opening Endoscopic (ICD-10-PCS; principal; 2017-03-20)
DX: J44.0 Chronic obstructive pulmonary disease with (acute) lower respiratory infection (principal); E44.0 Moderate protein-calorie malnutrition; J96.11 Chronic respiratory failure with hypoxia; T17.490A Other foreign object in trachea causing asphyxiation, initial encounter; T17.590A Other foreign object in bronchus causing asphyxiation, initial encounter; F23 Brief psychotic disorder; R62.7 Adult failure to thrive; J44.1 Chronic obstructive pulmonary disease with (acute) exacerbation; K21.9 Gastro-esophageal reflux disease without esophagitis; D72.810 Lymphocytopenia; R40.0 Somnolence; R00.1 Bradycardia, unspecified; D53.9 Nutritional anemia, unspecified; I10 Essential (primary) hypertension; F17.210 Nicotine dependence, cigarettes, uncomplicated; E55.9 Vitamin D deficiency, unspecified; R41.0 Disorientation, unspecified; F43.10 Post-traumatic stress disorder, unspecified; M19.90 Unspecified osteoarthritis, unspecified site; M47.896 Other spondylosis, lumbar region; F32.9 Major depressive disorder, single episode, unspecified; Z96.652 Presence of left artificial knee joint; J20.9 Acute bronchitis, unspecified; T43.225A Adverse effect of selective serotonin reuptake inhibitors, initial encounter; F41.1 Generalized anxiety disorder; X58.XXXA Exposure to other specified factors, initial encounter; Z85.528 Personal history of other malignant neoplasm of kidney; Z85.048 Personal history of other malignant neoplasm of rectum, rectosigmoid junction, and anus; Z90.5 Acquired absence of kidney; Z98.52 Vasectomy status; Z82.49 Family history of ischemic heart disease and other diseases of the circulatory system; Z82.5 Family history of asthma and other chronic lower respiratory diseases; Y92.098 Other place in other non-institutional residence as the place of occurrence of the external cause; Y93.89 Activity, other specified; Y99.8 Other external cause status; Z99.81 Dependence on supplemental oxygen; Z68.34 Body mass index [BMI] 34.0-34.9, adult; Z71.6 Tobacco abuse counseling; Z87.01 Personal history of pneumonia (recurrent); Z88.8 Allergy status to other drugs, medicaments and biological substances; Z79.899 Other long term (current) drug therapy; Z79.82 Long term (current) use of aspirin

== ENCOUNTER 2017-04-21 11:02 | Emergency (ER) | payer OTHER, MEDICARE ==
[~2017-04-21] VITALS: Ht 190.5 cm; Wt 115.7 kg
[~2017-04-21 11:02] MED LIST changes: +FLUCONAZOLE100 MG PO; +RISPERIDONE0.5 MG PO; +VITAMIN D32000 UNI1 PO
[2017-04-21 11:15] VITALS: BP 135/69
[2017-04-21] MEDS ORDERED: CYMBALTA60 MG PO (11:17)
[2017-04-21] MEDS ORDERED: LASIX40 MG PO (11:17)
[2017-04-21] MEDS ORDERED: TYLENOL325 M2 PO (11:18)
[2017-04-21] MEDS ORDERED: FLOMAX0.4 MG PO (11:18)
[2017-04-21] MEDS ORDERED: PROAIR HFA8.5 GM INH (11:19)
[2017-04-21 11:34] LABS: BASO # 0.1 10*3/uL (0.0-0.1); EOS # 0.7 10*3/uL (0.0-0.4); EOS % 9.8 % (1.0-4.0); HEMATOCRIT 37.9 % (42.0-52.0); HEMOGLOBIN 12.2 g/dl (14.0-18.0); LYMPH # 1.6 10*3/uL (1.3-4.4); MEAN CELL VOLUME 99.5 fl (80.0-94.0); MEAN CORPUSCULAR HGB CONC 32.2 g/dl (33.0-37.0); MEAN PLATELET VOLUME 9.1 fl (9.6-12.3); MONO # 0.9 10*3/uL (0.1-1.0); MONO % 12.5 % (3.0-9.0); NEUT % 54.3 % (47.0-73.0); PLATELET COUNT AUTOMATED 267 10*3/uL (130-400); RED BLOOD COUNT 3.81 10*6/uL (4.50-5.90); RED CELL DISTRI WIDTH 13.3 % (0-14.5); WHITE BLOOD COUNT 7.4 10*3/uL (4.8-10.8)
[2017-04-21 11:47] LABS: ACT PARTIAL THROMBO TIME 26.7 SECONDS (20.8-31.5)
[2017-04-21 11:50] LABS: ALKALINE PHOSPHATASE 117 U/L (45-117); BUN 20 mg/dl (7-24); CHLORIDE 102 mmol/L (98-107); SGOT/AST 24 IU/L (3-35); SGPT/ALT 20 U/L (12-78); SODIUM 140 mmol/L (136-145); TOTAL PROTEIN 6.9 gm/dL (6.4-8.2)
[2017-04-21 12:06] LABS: BILIRUBIN NEGATIVE (NEGATIVE); BLOOD NEGATIVE (NEGATIVE); CLARITY CLEAR (CLEAR); COLOR YELLOW (YELLOW); GLUCOSE NEGATIVE (NEGATIVE); KETONE NEGATIVE (NEGATIVE); LEUKO ESTERASE NEGATIVE (NEGATIVE); NITRITE NEGATIVE (NEGATIVE); SPECIFIC GRAVITY 1.015 (1.005-1.030); UROBILINOGEN 0.2 E.U./dl (0.2-1.0)
[2017-04-21 12:41] LABS: BACTERIA TRACE
[2017-04-21 13:15] LABS: URINE AMPHETAMINES < 1000 (1000ng/ml); URINE BARBITURATES < 200 (200ng/ml); URINE BENZODIAZEPINES > 200 (200ng/ml); URINE CANNABINOIDS (THC) < 50 (50ng/ml); URINE COCAINE < 300 (300ng/ml); URINE METHADONE < 300 (300ng/ml); URINE OPIATES < 300 (300ng/ml); URINE PHENCYCLIDINE < 25 (25ng/ml)
== END 2017-04-21 12:58 | disposition home or self-care (01) ==
LOC: ED 11:02
PROVIDERS: Emergency Medicine
DX: R41.0 Disorientation, unspecified (principal); R53.1 Weakness; M79.89 Other specified soft tissue disorders; M19.90 Unspecified osteoarthritis, unspecified site; J44.9 Chronic obstructive pulmonary disease, unspecified; M47.816 Spondylosis without myelopathy or radiculopathy, lumbar region; K21.9 Gastro-esophageal reflux disease without esophagitis; I10 Essential (primary) hypertension; Z79.899 Other long term (current) drug therapy; Z88.6 Allergy status to analgesic agent; Z88.5 Allergy status to narcotic agent; Z79.82 Long term (current) use of aspirin; Z87.01 Personal history of pneumonia (recurrent)

== ENCOUNTER 2017-05-08 07:28 | Inpatient (IN) | payer OTHER, MEDICARE ==
[~2017-05-08] VITALS: Ht 185.4 cm; Wt 129.0 kg
--- NOTE | ~2017-05-08 | PR ---
[place], [place] PROGRESS NOTE NAME: JAK BAPTISTE [facility] #: [id number] UNIT #: [id number] ROOM: 523 DOCTOR: MEME TAMAYO MD BIRTHDATE: [birth year] DOS: 05/11/2017 PULMONARY FOLLOWUP NOTE SUBJECTIVE: The patient was noted comfortable at the present time. He has been still noted coughing, expectorating a significant amount of sputum. Denies symptoms of chest pain or shortness breath. The patient is improving. General weakness and fatigue noted. OBJECTIVE: VITAL SIGNS: Normal temperature, respiratory rate 20, heart rate 68, blood pressure 120/67 and 127/65. Pulse oxygen saturation on 3 liters nasal cannula was 92% saturation at the present time. HEENT: No acute change. NECK: Supple. CARDIOVASCULAR: S1, S2 is audible. LUNGS: Decreased breath sounds noted bilaterally with occasional crackles in the lower lungs. ABDOMEN: Soft, nontender. EXTREMITIES: Without any acute edema. LABORATORY DATA: Culture of the sputum of 05/10/2017 showed moderate growth of yeast. Final culture results were pending. BMP normal BUN and creatinine. CBC: Normal WBC count. IMPRESSION: 1. The patient with resolving acute pneumonia from aspiration lower lung clinically. 2. The patient with chronic obstructive pulmonary disease as well. PLAN OF TREATMENT: Continuation of the antibiotics on doxycycline and the other oral antibiotic, which is not a cephalosporin by the Infectious disease specialist. The patient is responding to treatment. The culture preliminary noted moderate growth of yeast with final culture results were pending. Monitor culture results. Continuation of other supportive therapy, plan of management and care plan. Obtain a chest x-ray in the morning to reassess the progression of the pneumonia radiologically as well. [place], [place] PROGRESS NOTE NAME: JAK BAPTISTE UNIT #: [id number] ROOM: 523 DOCTOR: MEME TAMAYO MD BIRTHDATE: [birth year] MEME LEONARD MD CM:PNTRANS 1321 1617 MEME HORN MD 05/11/17 0276 interface
--- NOTE | ~2017-05-08 | PROC NOTE ---
[place], [place] PROCEDURE NOTE NAME: JAK BAPTISTE [facility] #: [id number] UNIT #: [id number] ROOM: 523 DOCTOR: DILLON GIRALDO BIRTHDATE: [birth year] DOS: 05/09/2017 MBBS REPORT REFERRING PHYSICIAN: Dr. Andrew. RADIOLOGIST: Dr. Hills. PATIENT'S HISTORY: The patient is a 66-year-old male who was admitted to [facility] on 05/08/2017 due to pneumonia. His past medical history includes COPD, GERD, HTN and pneumonia. The patient is known to this service from prior MBS completed in February 2017. At this time, the clinician recommended a regular diet with thin liquids. The patient was seen yesterday, 05/08/2017, for a bedside swallow evaluation. The clinician recommended a pureed diet with thin liquids and an MBS. The patient reports that he had dysphagia in the past, but has not had difficulties recently. He denied difficulty chewing and noted that he always takes small bites. GENERAL COMMENTS: The patient was awake, alert and cooperative throughout the evaluation; however, he appeared fatigued and frequently closed his eyes. The patient improved his ability to follow commands since yesterday's bedside swallow evaluation. MBSS METHODS: This exam was viewed in the lateral plane. The patient self fed the following barium impregnated consistencies, large single sips of thin liquids via straw x 2, teaspoons of pureed x 1 and bite of soft solid x 1. ORAL PHASE: Adequate bolus acceptance with no anterior loss. The patient with incohesive bolus and prolonged manipulation of liquids and pureed. Anterior to posterior bolus transit was adequate. Piecemeal deglutition was noted with all consistencies. Mastication was mildly prolonged, but complete. Premature posterior loss was noted with all consistencies. No oral residue appreciated. PHARYNGEAL PHASE: Initiation of the pharyngeal swallow was timely. Hyolaryngeal elevation was adequate in the superior and anterior planes with subsequent epiglottic retroflexion. No aspiration or penetration was observed with any consistency. False positive coughing was noted before, during and after examination, Base of tongue to posterior pharyngeal wall contact was adequate with no pharyngeal residue appreciated. UES: Unremarkable. IMPRESSION: The patient presented with a mild oral dysphagia classified by prolonged and uncoordinated oral phase, piecemeal deglutition and mildly prolonged mastication. No aspiration or penetration was noted. RECOMMENDATIONS: 1. Recommend upgrade to soft diet with thin liquids. 2. Aspiration precautions. Awake, alert and upright for all p.o., small bites sips with slow rate of feeding and oral care at least twice a day. [place], [place] PROCEDURE NOTE NAME: JAK BAPTISTE UNIT #: [id number] ROOM: 523 DOCTOR: DILLON GIRALDO BIRTHDATE: [birth year] PLAN OF CARE: [facility] followup is not indicated at this time. Please reconsult if additional concerns for dysphagia arise. Findings and recommendations were reviewed with patient and RN who expressed understanding. Thank you for consulting. Please contact the CONCR[facility]E [facility]LOATER Department at [phone] with any questions/concerns. Dillon Bonds CM:PROCNOTE:PROCEDURE NOTE 1016 1038 DILLON GIRALDO
--- NOTE | ~2017-05-08 | EKG ---
[place], [place] ELECTROCARDIOGRAM REPORT NAME: JAK BAPTISTE UNIT #: [id number] ROOM: 523 DOCTOR: HORACIO HORN MD,MEME BIRTHDATE: [birth year] DOS: 05/08/2017 TIME: 7:44 a.m. FINDINGS: Normal sinus rhythm noted with a heart rate of 80. MEME LEONARD MD CM:EKGRPT:ELECTROCARDIOGRAM REPORT 0952 1013 MEME HORN MD
--- NOTE | ~2017-05-08 | PR ---
[place], [place] PROGRESS NOTE NAME: JAK BAPTISTE [facility] #: [id number] UNIT #: [id number] ROOM: 523 DOCTOR: VELVET JACKSON,MAY BIRTHDATE: [birth year] DOS: SUBJECTIVE: The patient is a 66-year-old male who is being followed for pneumonia. He states his breathing is better than when he came in. He continues with cough. He had had hemoptysis that seems to be improving. He has been afebrile, no shaking, chills. No nausea or vomiting. He does have back pain. WBCs are improving, they are down to 13.6 today. He is also being followed by pulmonary. He is currently on Omnicef and doxycycline. LABORATORY DATA: His influenza was negative. Blood cultures remained sterile. Sputum culture has many wbc's with budding yeast. WBCs 13.6, improved from 26 yesterday. Platelets 193, BUN 17, creatinine 1.29. LFTs within normal limits. Albumin 2.6. Urine for legionella and strep pneumoniae are pending. IgG4, chlamydia, mycoplasma and parainfluenza are all pending. CURRENT MEDICATIONS: Include Rubicon, Tamiflu, Omnicef, doxycycline, Lasix, Lovenox, vitamin D, aspirin, Protonix, Flomax, Lopressor, Cymbalta, Neurontin, Ultram, Xanax, DuoNeb. PHYSICAL EXAMINATION: VITAL SIGNS: Temperature 98.4, pulse 74, respirations 20, BP 124/68. GENERAL: A 66-year-old male in no acute distress. HEAD, EYES, EARS, NOSE AND THROAT: Normocephalic, no thrush. LUNGS: Diminished bilaterally throughout. Few rhonchi. Respirations even and unlabored. HEART: Regular rhythm. No murmur appreciated. ABDOMEN: Soft, nontender, nondistended. EXTREMITIES: +1 edema bilateral lower extremities. SKIN: Warm, dry, free of rashes. ASSESSMENT: Pneumonia. PLAN: We will stop the Tamiflu. His influenza was negative. Continue the Omnicef and doxycycline. Follow up on his cultures and adjust antibiotics accordingly. Case discussed with Dr. Chu Ponce. ADDENDUM After reviewing the chart, labs, and microbiology, I agree with the above plans as described. We will follow the patient up clinically and adjust accordingly. JENNA RENETTA VERDIN [place], [place] PROGRESS NOTE NAME: JAK BAPTISTE UNIT #: [id number] ROOM: 3 DOCTOR: VELVET JACKSONMAY BIRTHDATE: [birth year] CHU PONCE MD CM:PNTRANS [id number] MAY VELVET JACKSON 05/11/17 0219 interface
--- NOTE | ~2017-05-08 | CON ---
[place], [place] REPORT OF CONSULTATION NAME: JAK BAPTISTE [facility] #: [id number] UNIT #: [id number] ROOM: 523 DOCTOR: MEME TAMAYO MD BIRTHDATE: [birth year] DOS: 05/09/2017 PULMONARY CONSULTATION, EVALUATION AND MANAGEMENT REASON FOR CONSULTATION: Assessment of acute pneumonia. HISTORY OF PRESENT ILLNESS: The patient is a 66-year-old white male known to me with history of COPD with a past history of pneumonia, which has been treated and resolved. The patient started having symptoms of confusions and started having hallucination for the past couple of days. He was also noted with symptoms of increased shortness of breath with coughing as well. He has been noted with some chest congestion, but not expectorating sputum. The patient denies symptoms of hemoptysis. He said with the cough he has been feeling like choking sensations. He has been brought to the hospital and assessed in the Emergency Room. The patient denies any symptoms of hemoptysis. Shortness of breath is noted. The chest x-ray described with finding of pulmonary infiltration. He has been currently noted awake and alert on this morning of assessment, stated partial reduction of the acute respiratory symptoms, hallucinations seemed to be resolved. He states he does clearly remember about the current ongoing medical issues. REVIEW OF SYSTEMS: CONSTITUTIONAL: Fatigue and tiredness reported for the patient with elevation of temperature described 105 degrees Fahrenheit at home. EYES: Denies any burning, redness, or tenderness. EARS, NOSE, THROAT SYMPTOMS: Denies sore throat, hoarseness, otalgia, postnasal drainage, or epistaxis. CARDIOVASCULAR: No angina pain, edema, or pain of the lower extremities. GASTROINTESTINAL: Denies dysphagia, nausea, vomiting, diarrhea, abdominal pain, hematemesis, melena, or hematochezia. Denies abnormal weight loss. GENITOURINARY: No dysuria, suprapubic pain, or hematuria. MUSCULOSKELETAL: No acute joint pain, redness, or tenderness. SKIN: No lesions or rashes. MUSCULOSKELETAL: Without any acute deformities. Remaining systems were reviewed. They were noted all negative. PAST MEDICAL HISTORY: Known with history of: 1. Chronic hypoxic respiratory failure, use of oxygen with 4 liters nasal cannula. 2. Chronic obstructive pulmonary disease. 3. Pneumonia and previous dysphagia in 2014. 4. PEG tube insertion and removal later on. 5. PTSD. 6. History of renal cell carcinoma in 2011 of right kidney. 7. Essential hypertension. 8. Generalized anxiety disorder. 9. Intermittent nicotine abuse. PAST SURGICAL HISTORY: 1. Complete nephrectomy in 2010 on the right side. [place], [place] REPORT OF CONSULTATION NAME: JAK BAPTISTE UNIT #: [id number] ROOM: 523 DOCTOR: HORACIO HORN MD,[facility] BIRTHDATE: [birth year] 2. Left total knee replacement. 3. Vasectomy. 4. Past therapeutic bronchoscopy. 5. PEG tube insertion and removal. 6. Upper endoscopy. 7. Tonsillectomy. 8. Fistulectomy. 9. Appendectomy. SOCIAL HISTORY: The patient is and lives at home. Denies history of alcohol use or illicit drug use. Tobacco use noted at the age of 24 years about a pack of cigarettes per day, with intermittent tobacco use still reported. He has worked in the [employer] for 12 years. Denies any history of illicit drugs. FAMILY HISTORY: Father at age 80 years due to complication related to abdominal aortic aneurysm. Mother at age 77 years due to complications of COPD. MEDICATIONS: Current medications administered use of Lasix, ____ vitamin D, aspirin, Lovenox for DVT prophylaxis, Protonix, Flomax, Cymbalta, metoprolol tartrate, gabapentin, tramadol, DuoNeb, IV vancomycin, Zosyn, and Levaquin. DRUG ALLERGIES: NOTED ALLERGY TO PERCOCET. PHYSICAL EXAMINATION: GENERAL: The patient is a 66-year-old white male who has been currently noted awake and alert, sitting on the side of bed. Height of 6 feet 1 inch, weight of 284 pounds, BMI 37. VITAL SIGNS: Temperature 100 degrees Fahrenheit, normal temperature, respiratory rate of 18-20, heart rate 77-75, blood pressure 129/62-120/55. Pulse oxygen saturation on 3 liters nasal cannula 98% saturation and on room air 94% saturation previously. HEENT: Examination shows head was atraumatic. Eyes nonicterus. NECK: Supple. CARDIOVASCULAR: S1, S2 audible. LUNGS: Basilar crackles with scattered wheezing. No other added sounds. ABDOMEN: Noted mild to moderate obesity. Bowel sounds present. EXTREMITIES: Without any acute edema. CENTRAL NERVOUS SYSTEM: The patient's cranial nerves 2-12 intact. No focal deficits. MUSCULOSKELETAL: Without any acute deformities. SKIN: No lesions or rashes. LABORATORY DATA AND IMAGING STUDIES: Influenza A and B, nasal washing antigen negative yesterday. CMP yesterday, BUN 29, creatinine 1.38. Lactic acid yesterday 1.9. Chest x-ray, basilar area of infiltration. CBC of the patient, WBC count 17.3, hemoglobin 13.1, hematocrit 41.3, platelet count of 237,000. The CBC of this morning, WBC count 26.4, hemoglobin 11, hematocrit 34.0, platelet count normal. CMP of the patient this morning, BUN 23, creatinine 1.43. Bilirubin total 1.1. [place], [place] REPORT OF CONSULTATION NAME: JAK BAPTISTE UNIT #: [id number] ROOM: 523 DOCTOR: MEME TAMAYO MD BIRTHDATE: [birth year] IMPRESSION: 1. The patient with acute bilateral lower lobe pneumonia, possibly aspiration cannot be excluded. Organism considered to be gram-positive and gram-negative, previous hospitalization for several days and use of broad spectrum intravenous antibiotics. 2. Leukocytosis, multifactorial. 3. The patient with history of chronic hypoxic respiratory failure and acute kidney injury secondary to acute tubular necrosis or intravascular volume depletion. 4. Past history of dysphagia as well. PLAN OF TREATMENT: Continue current broad spectrum intravenous antibiotics. Sputum for Gram stain and culture. Use of the oxygen supplementation and other therapy, plan of management. Monitor leukocytosis and chest x-ray progression. Modified barium swallow of the patient is already completed with pending results. Other supportive therapy, plan of management care. Change in medical management based on progression of illness will be made. MEME LEONARD MD CM:CONSTR:REPORT OF CONSULTATION 1005 05/09/17 4700 interface
--- NOTE | ~2017-05-08 | CON ---
[place], [place] REPORT OF CONSULTATION [id number] UNIT #: [id number] ROOM: 523 DOCTOR: GOMEZ PRINCE ED.D (BELLE) BIRTHDATE: [birth year] DOS: 05/09/2017 HISTORY OF PRESENT ILLNESS: The patient is a 66-year-old male referred by the hospitalist for competency evaluation. At the present time, this patient is on the 5th floor at [facility]. This patient is and his was in attendance during the interview. He does have 1 daughter and 2 sons. He is a college graduate, who was last working at the [employer] in [place], [place]. This patient's medical history is pertinent for pneumonia, altered mental status, alcohol dependence, in remission, renal cell cancer, rectal cancer, degenerative joint disease and PTSD. This patient has a long history of alcoholism, but has been in remission for many years. 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 He was awake, alert and oriented in all 3 spheres. He states that he was a smoker for many years and he is quite hypoxic with COPD. His short and his long-term memory appeared to be intact, although he was quite hypoxic and according to his , his oxygen saturation was around 80 and he became confused. At the present time, he has no difficulty with confusion whatsoever. He knows me and he knows the date and has no difficulty whatsoever with normal questions. In my opinion, this patient appears to be competent to make informed healthcare decisions and had apparently suffered some short term delirium secondary to his hypoxia. DIAGNOSIS: Delirium, not otherwise specified. RECOMMENDATIONS: In my opinion, this patient is competent to make informed healthcare decisions. Thank you very much for this consult. GOMEZ PRINCE ED.D CM:CONSTR:REPORT OF CONSULTATION 1508 05/09/17 1907 interface
--- NOTE | ~2017-05-08 | PR ---
[place], [place] PROGRESS NOTE NAME: JAK [facility]IST[facility] #: [id number] UNIT #: [id number] ROOM: 523 DOCTOR: HORACIO HORN MD,MEME BIRTHDATE: [birth year] DOS: 05/10/2017 PULMONARY PROGRESS NOTE SUBJECTIVE: The patient was seen and examined on 05/10/2017. Coughing has been noted with pewtbdxn-ha-[id number] amount of sputum expectoration occurred this morning as per . The patient has been noted comfortable at this time, resting on the bed. Denies symptoms of chest pain. He has required oxygen supplementation nasal cannula to manage the hypoxia. Oxygen supplementation currently noted 3.5 liters of oxygen supplementation nasal cannula. Denies any abdominal pain or diarrhea. Denies hematuria. Denies suprapubic pain. Denies any pain of the extremities. Remaining systems were reviewed. They were noted all negative. PHYSICAL EXAMINATION: VITAL SIGNS: The vital signs of the patient, which have been recorded shows temperature 99.4 degree Fahrenheit, normal temperature; respiratory rate 18-20, heart rate 74-72, and blood pressure 120/59-124/68. Pulse oxygen saturation on 3 liters nasal cannula is 91% saturation. HEENT: Examination shows [id number]-[id number] obesity. Head was atraumatic. Eyes, nonicterus. NECK: Supple. CARDIOVASCULAR: S1, S2 audible. LUNGS: Decreased breath sounds with basilar crackles. ABDOMEN: Soft, nontender, and obese. EXTREMITIES: Without any acute edema. MUSCULOSKELETAL: Without any acute deformities. SKIN: No lesions or rashes. CENTRAL NERVOUS SYSTEM: The patient has no focal deficits. Cranial nerves 2-12 intact. LABORATORY DATA: CMP this morning in the lab reviewed was noted as albumin of 2.6, total protein 5.6; otherwise, remaining normal CMP. The CBC of this morning, WBC count 13.6, hemoglobin 10.3, hematocrit 32.6, and platelet count of 193,000. The blood culture noted with no bacterial growth. The culture of the sputum this morning was pending. The Gram stain this morning, specimen, many white blood cells, moderate budding yeast preliminary reported. IMPRESSION: 1. Acute bilateral lower lobe pneumonia from aspiration noted. The patient at this time with acute ongoing other symptoms, which has been treated. 2. History of past oropharyngeal dysphagia as well 3 or 4 years ago, which did improve with current worsening noted again with recurrent pneumonia. 3. Overall debility as well. PLAN OF THERAPY: No changes in the plan of the patient's management at this time to be needed. All other previous treatments that the patient had previously would be continued. The patient has been seen by the Infectious Disease specialist. The patient currently has some adjustments done in the [place], [place] PROGRESS NOTE NAME: JAK BAPTISTE UNIT #: [id number] ROOM: 523 DOCTOR: MEME TAMAYO MD BIRTHDATE: [birth year] antibiotics. The patient was started on the Tamiflu as well as doxycycline, and other antibiotics vancomycin and Zosyn were discontinued. Monitor chest x-ray closely for the patient as well. Addition treatment changes to be made for this patient based on progression of the illness. Speech therapy would be recommended for the patient to follow the aspiration precautions and speech therapy. MEME LEONARD MD CM:PNTRANS [phone] MEME HORN MD 05/11/17 0139 interface
--- NOTE | ~2017-05-08 | PR ---
[place], [place] PROGRESS NOTE NAME: JAK BAPTISTE [facility] #: [id number] UNIT #: [id number] ROOM: 523 DOCTOR: HORACIO HORN MD,MEME BIRTHDATE: [birth year] DOS: 05/12/2017 SUBJECTIVE: The patient has been noted comfortable at this time. Shortness of breath, coughing, and other symptoms have been improving progressively. There were no symptoms of chest pain or hemoptysis reported by the patient. Physical strength of the patient has been improving gradually. OBJECTIVE: VITAL SIGNS: Normal temperature, respiratory rate 20, heart rate 69, blood pressure 128/52. Pulse oxygen saturation of the patient recorded on room air is 98%. HEENT: Examination shows head was atraumatic. Eyes, no icterus. NECK: Supple. CARDIOVASCULAR: S1, S2 audible. LUNGS: Noted without any wheezing or crackles at the present time. ABDOMEN: Soft, nontender. Bowel sounds present. EXTREMITIES: Shows no acute edema. LABORATORY DATA: The chest x-ray, 2-view, of the patient done this morning shows resolution of previously noted lower lobe infiltration bilaterally as compared with the previous chest x-ray. IMPRESSION: 1. The patient with resolving acute aspiration pneumonia bilaterally with improving acute respiratory failure of the patient as well. 2. History of chronic obstructive pulmonary disease. PLAN OF TREATMENT: From the pulmonary standpoint, the patient could be considered for home discharge whenever necessary with oral antibiotic per recommendation of the Infectious disease specialist. Outpatient followup was planned for this patient as well. MEME LEONARD MD CM:PNTRANS [phone] MEME HORN MD 05/13/17 0233 interface
[~2017-05-08 07:28] MED LIST changes: +CYMBALTA60 MG PO; +FLOMAX0.4 MG PO; +LASIX40 MG PO; +PROAIR HFA8.5 GM INH; +TYLENOL325 M2 PO
[2017-05-08 07:33] VITALS: BP 150/93
[2017-05-08] MEDS ORDERED: AMLODIPINE BESYL5 MG PO (07:49)
[2017-05-08] MEDS ORDERED: SYMB160 INH (07:50)
[2017-05-08] MEDS ORDERED: C-10001000 MG PO (07:50)
[2017-05-08] MEDS ORDERED: VITAMIN D31000 UNIT PO (07:51)
[2017-05-08] MEDS ORDERED: HYDR25T PO (07:51)
[2017-05-08] MEDS ORDERED: FISH OIL + D31 EACH PO (07:51)
[2017-05-08] MEDS ORDERED: Motrin,Rufen800 MG PO (07:52)
[2017-05-08] MEDS ORDERED: LISINOPRIL40 MG PO (07:52)
[2017-05-08] MEDS ORDERED: MELATONIN10 M4 PO (07:54)
[2017-05-08] MEDS ORDERED: VIAGRA100 MG PO (07:55)
[2017-05-08] MEDS ORDERED: ZOLOFT50 MG PO (07:55)
[2017-05-08 08:11] LABS: BASO % 0.2 % (0.0-1.0); EOS # 0.3 10*3/uL (0.0-0.4); EOS % 1.8 % (1.0-4.0); HEMATOCRIT 41.3 % (42.0-52.0); HEMOGLOBIN 13.1 g/dl (14.0-18.0); LYMPH # 0.8 10*3/uL (1.3-4.4); LYMPH % 4.4 % (27.0-41.0); MEAN CORPUSCULAR HGB 31.7 pg (27.0-31.0); MEAN CORPUSCULAR HGB CONC 31.7 g/dl (33.0-37.0); MEAN PLATELET VOLUME 9.2 fl (9.6-12.3); MONO # 0.6 10*3/uL (0.1-1.0); MONO % 3.7 % (3.0-9.0); NEUT # 15.4 10*3/uL (2.3-7.9); NEUT % 89.4 % (47.0-73.0); PLATELET COUNT AUTOMATED 237 10*3/uL (130-400); RED BLOOD COUNT 4.13 10*6/uL (4.50-5.90); RED CELL DISTRI WIDTH 13.1 % (0-14.5); WHITE BLOOD COUNT 17.3 10*3/uL (4.8-10.8)
[2017-05-08 08:27] LABS: ALBUMIN 3.4 gm/dl (3.1-4.5); ALKALINE PHOSPHATASE 105 U/L (45-117); BUN 29 mg/dl (7-24); CHLORIDE 99 mmol/L (98-107); CREATININE 1.38 mg/dL (0.70-1.30); POTASSIUM 3.7 mmol/L (3.5-5.1); SGOT/AST 18 IU/L (3-35); SGPT/ALT 14 U/L (12-78); SODIUM 138 mmol/L (136-145); TOTAL PROTEIN 6.6 gm/dL (6.4-8.2); TROPONIN I < 0.015 ng/ml (<0.045)
[2017-05-08 08:41] VITALS: BP 131/58
[2017-05-08 09:00] VITALS: BP 122/56; BP 132/78
[2017-05-08 09:12] LABS: ABG BASE EXCESS 2.5 mmol/L (-2.0-2.0); ABG HCO3 26.9 mmol/l (22-26); ABG O2 SATURATION 89.6 % (95-97); ARTERIAL BLOOD GAS PCO2 44.8 mmHg (35-45); ARTERIAL BLOOD GAS PH 7.401 (7.35-7.45); ARTERIAL BLOOD GAS PO2 62.1 mmHg (80-90)
[2017-05-08] MEDS ORDERED: INCRUSE ELLI62.5 MCG INH (11:27)
[2017-05-08] MEDS ORDERED: PROVENTIL HFA6.7 GM INH (11:29)
[2017-05-08 16:00] VITALS: BP 119/68
[2017-05-08 18:36] LABS: BILIRUBIN NEGATIVE (NEGATIVE); BLOOD NEGATIVE (NEGATIVE); CLARITY SL CLOUDY (CLEAR); COLOR YELLOW (YELLOW); GLUCOSE NEGATIVE (NEGATIVE); KETONE NEGATIVE (NEGATIVE); LEUKO ESTERASE NEGATIVE (NEGATIVE); NITRITE NEGATIVE (NEGATIVE); PH 6.5 (5.0-9.0); SPECIFIC GRAVITY <= 1.005 (1.005-1.030); UROBILINOGEN 0.2 E.U./dl (0.2-1.0)
[2017-05-08 18:43] LABS: BACTERIA TRACE; RBC 0-2 rbc/hpf (0-2); WBC 0-2 wbc/hpf (0-5)
[2017-05-08 20:00] VITALS: BP 120/70
[2017-05-09] VITALS: BP 129/62
[2017-05-09 05:57] LABS: MEAN CELL VOLUME 98.8 fl (80.0-94.0); MEAN CORPUSCULAR HGB CONC 32.4 g/dl (33.0-37.0); MEAN PLATELET VOLUME 9.1 fl (9.6-12.3); PLATELET COUNT AUTOMATED 205 10*3/uL (130-400); RED BLOOD COUNT 3.44 10*6/uL (4.50-5.90); RED CELL DISTRI WIDTH 13.3 % (0-14.5); WHITE BLOOD COUNT 26.4 10*3/uL (4.8-10.8)
[2017-05-09 06:30] LABS: PLATELET SUFFICIENCY NORMAL (NORMAL); TOTAL CELLS COUNTED 100 #CELLS
[2017-05-09 06:36] LABS: ALBUMIN 2.6 gm/dl (3.1-4.5); CREATININE 1.43 mg/dL (0.70-1.30); PHOSPHOROUS 2.2 mg/dL (2.5-4.9); POTASSIUM 3.5 mmol/L (3.5-5.1)
[2017-05-09 08:00] VITALS: BP 122/55
[2017-05-09 12:00] VITALS: BP 150/68
[2017-05-09 16:00] VITALS: BP 129/56
[2017-05-09 20:00] VITALS: BP 118/62
[2017-05-10] VITALS: BP 120/59
[2017-05-10 06:49] LABS: BASO % 0.3 % (0.0-1.0); EOS # 0.4 10*3/uL (0.0-0.4); EOS % 2.9 % (1.0-4.0); HEMATOCRIT 32.6 % (42.0-52.0); HEMOGLOBIN 10.3 g/dl (14.0-18.0); LYMPH # 0.9 10*3/uL (1.3-4.4); LYMPH % 6.8 % (27.0-41.0); MEAN CELL VOLUME 100.3 fl (80.0-94.0); MEAN CORPUSCULAR HGB 31.7 pg (27.0-31.0); MEAN CORPUSCULAR HGB CONC 31.6 g/dl (33.0-37.0); MEAN PLATELET VOLUME 9.7 fl (9.6-12.3); MONO % 7.4 % (3.0-9.0); NEUT # 11.2 10*3/uL (2.3-7.9); NEUT % 82.3 % (47.0-73.0); PLATELET COUNT AUTOMATED 193 10*3/uL (130-400); RED BLOOD COUNT 3.25 10*6/uL (4.50-5.90); RED CELL DISTRI WIDTH 13.2 % (0-14.5); WHITE BLOOD COUNT 13.6 10*3/uL (4.8-10.8)
[2017-05-10 07:13] LABS: ALBUMIN 2.6 gm/dl (3.1-4.5); BUN 17 mg/dl (7-24); CHLORIDE 105 mmol/L (98-107); CREATININE 1.29 mg/dL (0.70-1.30); POTASSIUM 3.5 mmol/L (3.5-5.1); SGOT/AST 11 IU/L (3-35); SGPT/ALT 8 U/L (12-78); SODIUM 139 mmol/L (136-145)
[2017-05-10 07:14] LABS: ALKALINE PHOSPHATASE 75 U/L (45-117); TOTAL PROTEIN 5.9 gm/dL (6.4-8.2)
[2017-05-10 08:00] VITALS: BP 122/57
[2017-05-10 12:00] VITALS: BP 124/68
[2017-05-10 16:00] VITALS: BP 113/58
[2017-05-10 20:00] VITALS: BP 122/59
[2017-05-11] VITALS: BP 127/65
[2017-05-11 06:23] LABS: BASO # 0.1 10*3/uL (0.0-0.1); BASO % 0.6 % (0.0-1.0); EOS # 0.6 10*3/uL (0.0-0.4); EOS % 6.9 % (1.0-4.0); HEMATOCRIT 32.6 % (42.0-52.0); HEMOGLOBIN 10.3 g/dl (14.0-18.0); LYMPH # 1.2 10*3/uL (1.3-4.4); LYMPH % 13.8 % (27.0-41.0); MEAN CELL VOLUME 99.7 fl (80.0-94.0); MEAN CORPUSCULAR HGB 31.5 pg (27.0-31.0); MEAN CORPUSCULAR HGB CONC 31.6 g/dl (33.0-37.0); MEAN PLATELET VOLUME 9.7 fl (9.6-12.3); MONO # 0.7 10*3/uL (0.1-1.0); MONO % 8.3 % (3.0-9.0); NEUT # 5.9 10*3/uL (2.3-7.9); PLATELET COUNT AUTOMATED 207 10*3/uL (130-400); RED BLOOD COUNT 3.27 10*6/uL (4.50-5.90); RED CELL DISTRI WIDTH 13.2 % (0-14.5); WHITE BLOOD COUNT 8.4 10*3/uL (4.8-10.8)
[2017-05-11 06:32] LABS: BUN 19 mg/dl (7-24); CHLORIDE 103 mmol/L (98-107); CREATININE 1.21 mg/dL (0.70-1.30); POTASSIUM 3.6 mmol/L (3.5-5.1); SODIUM 140 mmol/L (136-145)
[2017-05-11 08:00] VITALS: BP 123/67
[2017-05-11 12:00] VITALS: BP 99/57
[2017-05-11 16:00] VITALS: BP 115/61
[2017-05-11 20:00] VITALS: BP 121/54
[2017-05-12] VITALS: BP 129/75
[2017-05-12 06:34] LABS: ALBUMIN 2.9 gm/dl (3.1-4.5); BUN 21 mg/dl (7-24); CHLORIDE 104 mmol/L (98-107); POTASSIUM 3.7 mmol/L (3.5-5.1); SODIUM 142 mmol/L (136-145)
[2017-05-12 06:37] LABS: BASO # 0.1 10*3/uL (0.0-0.1); EOS # 0.8 10*3/uL (0.0-0.4); EOS % 11.3 % (1.0-4.0); HEMATOCRIT 35.6 % (42.0-52.0); HEMOGLOBIN 11.1 g/dl (14.0-18.0); LYMPH # 1.2 10*3/uL (1.3-4.4); LYMPH % 16.9 % (27.0-41.0); MEAN CORPUSCULAR HGB 31.2 pg (27.0-31.0); MEAN CORPUSCULAR HGB CONC 31.2 g/dl (33.0-37.0); MEAN PLATELET VOLUME 9.5 fl (9.6-12.3); MONO # 0.6 10*3/uL (0.1-1.0); MONO % 8.2 % (3.0-9.0); NEUT # 4.6 10*3/uL (2.3-7.9); NEUT % 62.2 % (47.0-73.0); PLATELET COUNT AUTOMATED 235 10*3/uL (130-400); RED BLOOD COUNT 3.56 10*6/uL (4.50-5.90); RED CELL DISTRI WIDTH 13.2 % (0-14.5); WHITE BLOOD COUNT 7.3 10*3/uL (4.8-10.8)
[2017-05-12 06:40] LABS: ALKALINE PHOSPHATASE 84 U/L (45-117); CREATININE 1.22 mg/dL (0.70-1.30); SGOT/AST 11 IU/L (3-35); SGPT/ALT 12 U/L (12-78); TOTAL PROTEIN 6.6 gm/dL (6.4-8.2)
[2017-05-12 08:00] VITALS: BP 128/52
[2017-05-12 12:00] VITALS: BP 128/52
[2017-05-12] MEDS ORDERED: DOXYCYCLINE100 M3 PO (12:29)
[2017-05-13 22:06] LABS: PARAINFLUENZA 3 CF Negative (Neg:<1:8)
[2017-05-14 09:07] LABS: MYCOPLASMA PNEUMONIAE IGG 210 U/mL (0-99); MYCOPLASMA PNEUMONIAE IGG 241 U/mL (0-99); MYCOPLASMA PNEUMONIAE IGM <770 U/mL (0-769)
== END 2017-05-12 14:13 | disposition home health service (06) | DRG 871 ==
LOC: ED 07:28 → 5E 09:06
PROVIDERS: Emergency Medicine; Family Medicine; Hospitalist; Internal Medicine; Internal Medicine Hospice and Palliative Medicine; Registered Nurse
PROC: BD1BYZZ Fluoroscopy of Mouth/Oropharynx using Other Contrast (ICD-10-PCS; principal; 2017-05-09)
DX: A41.9 Sepsis, unspecified organism (principal); N17.0 Acute kidney failure with tubular necrosis; J96.01 Acute respiratory failure with hypoxia; J69.0 Pneumonitis due to inhalation of food and vomit; G93.41 Metabolic encephalopathy; E44.0 Moderate protein-calorie malnutrition; J96.11 Chronic respiratory failure with hypoxia; J44.0 Chronic obstructive pulmonary disease with (acute) lower respiratory infection; J44.9 Chronic obstructive pulmonary disease, unspecified; K21.9 Gastro-esophageal reflux disease without esophagitis; F41.9 Anxiety disorder, unspecified; M19.90 Unspecified osteoarthritis, unspecified site; G89.29 Other chronic pain; F32.9 Major depressive disorder, single episode, unspecified; F43.10 Post-traumatic stress disorder, unspecified; I10 Essential (primary) hypertension; D53.9 Nutritional anemia, unspecified; F41.1 Generalized anxiety disorder; F17.200 Nicotine dependence, unspecified, uncomplicated; Z96.652 Presence of left artificial knee joint; Z85.048 Personal history of other malignant neoplasm of rectum, rectosigmoid junction, and anus; Z88.1 Allergy status to other antibiotic agents; Z99.81 Dependence on supplemental oxygen; Z88.5 Allergy status to narcotic agent; Z85.53 Personal history of malignant neoplasm of renal pelvis; Z82.49 Family history of ischemic heart disease and other diseases of the circulatory system; Z83.6 Family history of other diseases of the respiratory system; Z90.49 Acquired absence of other specified parts of digestive tract; Z68.37 Body mass index [BMI] 37.0-37.9, adult

== ENCOUNTER 2017-05-27 10:56 | Inpatient (IN) | payer OTHER, MEDICARE ==
[~2017-05-27] VITALS: Ht 190.5 cm; Wt 127.0 kg
[2017-05-27] VITALS (10 sets, daily range): BP systolic 112–153; BP diastolic 53–74
[~2017-05-27 10:56] MED LIST changes: +C-10001000 MG PO; +FISH OIL + D31 EACH PO; +PROVENTIL HFA6.7 GM INH; +VITAMIN D31000 UNIT PO
[2017-05-27 12:07] LABS: BASO # 0.1 10*3/uL (0.0-0.1); BASO % 1.7 % (0.0-1.0); EOS # 0.7 10*3/uL (0.0-0.4); HEMATOCRIT 37.1 % (42.0-52.0); HEMOGLOBIN 11.6 g/dl (14.0-18.0); LYMPH # 1.5 10*3/uL (1.3-4.4); LYMPH % 24.5 % (27.0-41.0); MEAN CELL VOLUME 99.5 fl (80.0-94.0); MEAN CORPUSCULAR HGB 31.1 pg (27.0-31.0); MEAN CORPUSCULAR HGB CONC 31.3 g/dl (33.0-37.0); MEAN PLATELET VOLUME 8.9 fl (9.6-12.3); MONO # 0.7 10*3/uL (0.1-1.0); NEUT # 3.1 10*3/uL (2.3-7.9); NEUT % 50.6 % (47.0-73.0); PLATELET COUNT AUTOMATED 290 10*3/uL (130-400); RED BLOOD COUNT 3.73 10*6/uL (4.50-5.90); RED CELL DISTRI WIDTH 12.8 % (0-14.5)
[2017-05-27 12:22] LABS: ALBUMIN 3.1 gm/dl (3.1-4.5); ALKALINE PHOSPHATASE 96 U/L (45-117); BUN 14 mg/dl (7-24); CHLORIDE 103 mmol/L (98-107); CREATININE 1.14 mg/dL (0.70-1.30); POTASSIUM 3.9 mmol/L (3.5-5.1); SGOT/AST 17 IU/L (3-35); SGPT/ALT 13 U/L (12-78); SODIUM 140 mmol/L (136-145); TOTAL PROTEIN 6.8 gm/dL (6.4-8.2)
[2017-05-27 12:27] LABS: ABG BASE EXCESS 2.3 mmol/L (-2.0-2.0); ABG HCO3 28.3 mmol/l (22-26); ABG O2 SATURATION 93.5 % (95-97); ARTERIAL BLOOD GAS PCO2 51.6 mmHg (35-45); ARTERIAL BLOOD GAS PH 7.354 (7.35-7.45)
[2017-05-27 13:31] LABS: URINE AMPHETAMINES < 1000 (1000ng/ml); URINE BARBITURATES < 200 (200ng/ml); URINE BENZODIAZEPINES > 200 (200ng/ml); URINE CANNABINOIDS (THC) < 50 (50ng/ml); URINE COCAINE < 300 (300ng/ml); URINE METHADONE < 300 (300ng/ml); URINE OPIATES < 300 (300ng/ml)
[2017-05-27 13:35] LABS: URINE PHENCYCLIDINE < 25 (25ng/ml)
[2017-05-28 00:33] VITALS: BP 153/75
[2017-05-28 05:54] LABS: BASO # 0.1 10*3/uL (0.0-0.1); BASO % 1.3 % (0.0-1.0); EOS # 0.5 10*3/uL (0.0-0.4); EOS % 7.9 % (1.0-4.0); HEMATOCRIT 35.8 % (42.0-52.0); HEMOGLOBIN 11.4 g/dl (14.0-18.0); LYMPH % 16.4 % (27.0-41.0); MEAN CELL VOLUME 98.4 fl (80.0-94.0); MEAN CORPUSCULAR HGB 31.3 pg (27.0-31.0); MEAN CORPUSCULAR HGB CONC 31.8 g/dl (33.0-37.0); MEAN PLATELET VOLUME 9.5 fl (9.6-12.3); MONO # 0.8 10*3/uL (0.1-1.0); MONO % 12.3 % (3.0-9.0); NEUT # 3.8 10*3/uL (2.3-7.9); NEUT % 61.9 % (47.0-73.0); PLATELET COUNT AUTOMATED 297 10*3/uL (130-400); RED BLOOD COUNT 3.64 10*6/uL (4.50-5.90); RED CELL DISTRI WIDTH 12.6 % (0-14.5); WHITE BLOOD COUNT 6.1 10*3/uL (4.8-10.8)
[2017-05-28 06:00] LABS: ALBUMIN 2.9 gm/dl (3.1-4.5); ALKALINE PHOSPHATASE 97 U/L (45-117); BUN 14 mg/dl (7-24); CHLORIDE 105 mmol/L (98-107); CREATININE 1.02 mg/dL (0.70-1.30); PHOSPHOROUS 3.6 mg/dL (2.5-4.9); SGOT/AST 19 IU/L (3-35); SGPT/ALT 14 U/L (12-78); SODIUM 141 mmol/L (136-145); TOTAL PROTEIN 6.5 gm/dL (6.4-8.2)
[2017-05-28 08:00] VITALS: BP 158/69
[2017-05-28 12:00] VITALS: BP 139/74
[2017-05-28 16:00] VITALS: BP 154/72
[2017-05-28 20:00] VITALS: BP 108/87
== END 2017-05-28 22:34 | disposition short-term general hospital (02) | DRG 88 ==
LOC: ED 10:56 → 4E 17:15 → EDHOLD 17:15 → 4E 17:38
PROVIDERS: Emergency Medicine; Family Medicine
DX: S06.0X9A Concussion with loss of consciousness of unspecified duration, initial encounter (principal); G93.41 Metabolic encephalopathy; J96.11 Chronic respiratory failure with hypoxia; E44.0 Moderate protein-calorie malnutrition; E87.2 Acidosis; E87.3 Alkalosis; J96.12 Chronic respiratory failure with hypercapnia; F33.9 Major depressive disorder, recurrent, unspecified; J44.9 Chronic obstructive pulmonary disease, unspecified; D53.9 Nutritional anemia, unspecified; K21.9 Gastro-esophageal reflux disease without esophagitis; E55.9 Vitamin D deficiency, unspecified; E66.9 Obesity, unspecified; I10 Essential (primary) hypertension; F41.9 Anxiety disorder, unspecified; M19.90 Unspecified osteoarthritis, unspecified site; G89.29 Other chronic pain; R62.7 Adult failure to thrive; F43.10 Post-traumatic stress disorder, unspecified; Z96.659 Presence of unspecified artificial knee joint; R26.2 Difficulty in walking, not elsewhere classified; D72.810 Lymphocytopenia; M47.816 Spondylosis without myelopathy or radiculopathy, lumbar region; R00.1 Bradycardia, unspecified; Z66 Do not resuscitate; Z51.5 Encounter for palliative care; W01.0XXA Fall on same level from slipping, tripping and stumbling without subsequent striking against object, initial encounter; Z86.73 Personal history of transient ischemic attack (TIA), and cerebral infarction without residual deficits; Z88.8 Allergy status to other drugs, medicaments and biological substances; Z79.899 Other long term (current) drug therapy; Z79.82 Long term (current) use of aspirin; Z85.048 Personal history of other malignant neoplasm of rectum, rectosigmoid junction, and anus; Z85.528 Personal history of other malignant neoplasm of kidney; Z87.01 Personal history of pneumonia (recurrent); Z90.89 Acquired absence of other organs; Z90.5 Acquired absence of kidney; Z98.52 Vasectomy status; Z93.1 Gastrostomy status; Z82.49 Family history of ischemic heart disease and other diseases of the circulatory system; Z83.6 Family history of other diseases of the respiratory system; Z84.89 Family history of other specified conditions; Z87.891 Personal history of nicotine dependence; Z99.81 Dependence on supplemental oxygen; Z68.34 Body mass index [BMI] 34.0-34.9, adult; Y93.89 Activity, other specified; Y92.89 Other specified places as the place of occurrence of the external cause; Y99.8 Other external cause status

== ENCOUNTER → 2018-05-21 | Outpatient (CLI) | payer OTHER, MEDICARE | END | disposition home or self-care (01) | LOC: LAB 11:36 | DX: R53.83 Other fatigue (principal); D64.9 Anemia, unspecified ==

== ENCOUNTER 2019-03-30 07:28 | Inpatient (IN) | payer OTHER ==
[~2019-03-30] VITALS: Ht 185.4 cm; Wt 113.9 kg
[2019-03-30 07:34] VITALS: BP 165/74
[2019-03-30] MEDS ORDERED: AVPAK AZITHROM250 M1 PO (07:56)
[2019-03-30] MEDS ORDERED: PREDNISONE10 MG PO (07:56)
[2019-03-30 08:22] LABS: BASO % 0.2 % (0.0-1.0); EOS # 0.1 10*3/uL (0.0-0.4); EOS % 0.9 % (1.0-4.0); HEMATOCRIT 38.6 % (42.0-52.0); HEMOGLOBIN 12.7 g/dl (14.0-18.0); LYMPH # 2.2 10*3/uL (1.3-4.4); LYMPH % 15.5 % (27.0-41.0); MEAN CELL VOLUME 99.7 fl (80.0-94.0); MEAN CORPUSCULAR HGB 32.8 pg (27.0-31.0); MEAN CORPUSCULAR HGB CONC 32.9 g/dl (33.0-37.0); MEAN PLATELET VOLUME 9.8 fl (9.6-12.3); MONO # 1.2 10*3/uL (0.1-1.0); MONO % 8.7 % (3.0-9.0); NEUT # 10.6 10*3/uL (2.3-7.9); NEUT % 74.3 % (47.0-73.0); PLATELET COUNT AUTOMATED 341 10*3/uL (130-400); RED BLOOD COUNT 3.87 10*6/uL (4.50-5.90); RED CELL DISTRI WIDTH 13.3 % (0-14.5); WHITE BLOOD COUNT 14.3 10*3/uL (4.8-10.8)
[2019-03-30 08:33] LABS: ACT PARTIAL THROMBO TIME 29.1 SECONDS (20.0-32.1)
[2019-03-30 08:36] LABS: ALBUMIN 2.8 gm/dl (3.1-4.5); ALKALINE PHOSPHATASE 95 U/L (45-117); BUN 16 mg/dl (7-24); CHLORIDE 106 mmol/L (98-107); CREATININE 1.19 mg/dL (0.70-1.30); POTASSIUM 3.4 mmol/L (3.5-5.1); SGOT/AST 14 IU/L (3-35); SGPT/ALT 10 U/L (12-78); SODIUM 142 mmol/L (136-145); TOTAL PROTEIN 6.5 gm/dL (6.4-8.2)
--- NOTE | 2019-03-30 08:39 | NUR ---
PT ASSISTED UP TO BR.--LAURA VELAZQUEZ RN
[2019-03-30 11:22] VITALS: BP 160/61; BP 161/64
--- NOTE | 2019-03-30 11:22 | NUR ---
Time: 1121 A 68 year old MALE admitted to 5E under services of DANIELLE MOREIRA DO, Pt. arrived via stretcher from ER. Chief complaint: RECTAL BLEEDING. SAILAJA FRANCO
[2019-03-30] MEDS ORDERED: GABAPENTIN100 M2 PO (11:50)
[2019-03-30] MEDS ORDERED: MINIPRESS2 M1 PO (11:51)
[2019-03-30] MEDS ORDERED: OCUVITE WITH L1 EACH PO (11:55)
[2019-03-30 12:00] VITALS: BP 150/72
--- NOTE | 2019-03-30 12:00 | NUR ---
CALLED AND SPOKE TO DR THOMAS ANDVISED THAT MED REC WAS DONE AND PATIENT HAD ANOTHER LARGE AMOUNT OF BLOOD IN HIS BRIEF.
[2019-03-30] MEDS ORDERED: SINEMET 25-1001 EACH PO (12:46)
[2019-03-30] MEDS ORDERED: CRESTOR40 M1 PO (12:47)
[2019-03-30 15:50] LABS: BASO % 0.4 % (0.0-1.0); EOS # 0.2 10*3/uL (0.0-0.4); EOS % 1.9 % (1.0-4.0); HEMATOCRIT 40.1 % (42.0-52.0); HEMOGLOBIN 12.7 g/dl (14.0-18.0); LYMPH # 1.9 10*3/uL (1.3-4.4); LYMPH % 16.6 % (27.0-41.0); MEAN CELL VOLUME 101.3 fl (80.0-94.0); MEAN CORPUSCULAR HGB 32.1 pg (27.0-31.0); MEAN CORPUSCULAR HGB CONC 31.7 g/dl (33.0-37.0); MEAN PLATELET VOLUME 9.2 fl (9.6-12.3); MONO # 0.9 10*3/uL (0.1-1.0); MONO % 8.3 % (3.0-9.0); NEUT # 8.2 10*3/uL (2.3-7.9); NEUT % 72.5 % (47.0-73.0); PLATELET COUNT AUTOMATED 322 10*3/uL (130-400); RED BLOOD COUNT 3.96 10*6/uL (4.50-5.90); RED CELL DISTRI WIDTH 13.2 % (0-14.5); WHITE BLOOD COUNT 11.2 10*3/uL (4.8-10.8)
[2019-03-30 16:00] VITALS: BP 154/61
[2019-03-30 17:25] LABS: HEMATOCRIT 38.8 % (42.0-52.0); HEMOGLOBIN 12.5 g/dl (14.0-18.0)
--- NOTE | 2019-03-30 19:30 | NUR ---
PT RESTING IN BED. VOICES NO CONCERNS AT THIS TIME. RESPS EASY AND NON LABORED. NO S/S OF DISTRESS NOTED. VSS. WHITE BOARD UPDATED. CALL LIGHT WITHIN REACH. FAMILY AT BEDSIDE
[2019-03-30 20:00] VITALS: BP 141/69
--- NOTE | 2019-03-30 21:12 | NUR ---
PT C/O NAUSEA. MEDICATED PER ORDER. WILL MONITOR FOR RELIEF. VOICES NO OTHER CONCERNS AT THIS TIME. RESTING IN BED. CALL LIGHT WITHIN REACH
--- NOTE | 2019-03-30 22:10 | NUR ---
PT C/O 5/10 ACHING ABDOMINAL PAIN. MEDICATED PER ORDER. WILL MONITOR FOR RELIEF. VOICES NO OTHER CONCERNS AT THIS TIME. RESTING IN BED. RESPS EASY AND NON LABORED. CALL LIGHT WITHIN REACH.
--- NOTE | 2019-03-30 23:32 | NUR ---
MEDICATIONS EFFECTIVE PER PT
--- NOTE | 2019-03-30 23:59 | NUR ---
ENTERPRISE ENGINEER IN TO VITALS. PTS SPO2 IN THE 80'S. 2L OXYGEN VIA NASAL CANNULA APPLIED. PT WARM/DRY/PINK IN COLOR. NO S/S OF DISTRESS. DENIES SOB, RESPS EASY AND NON LABORED. AFTER A FEW MINUTES OF BEING ON 2L PTS SPO2 CAME UP TO 95%. ALL OTHER VITAL SIGNS WNL. WILL CONT TO MONITOR
[2019-03-31] VITALS (8 sets, daily range): BP systolic 138–177; BP diastolic 62–83
--- NOTE | 2019-03-31 03:31 | NUR ---
24 HR chart check completed.
--- NOTE | 2019-03-31 03:39 | NUR ---
UPDATED ON PLAN OF CARE
--- NOTE | 2019-03-31 04:24 | NUR ---
Patient sleeping. Respirations relaxed and easy. [place] up . [place] on. CALL LIGHT WITHIN REACH [place],DOT
[2019-03-31 06:23] LABS: BASO # 0.1 10*3/uL (0.0-0.1); BASO % 0.7 % (0.0-1.0); EOS # 0.4 10*3/uL (0.0-0.4); EOS % 4.6 % (1.0-4.0); HEMATOCRIT 39.8 % (42.0-52.0); HEMOGLOBIN 12.3 g/dl (14.0-18.0); LYMPH # 1.9 10*3/uL (1.3-4.4); LYMPH % 20.9 % (27.0-41.0); MEAN CELL VOLUME 102.6 fl (80.0-94.0); MEAN CORPUSCULAR HGB 31.7 pg (27.0-31.0); MEAN CORPUSCULAR HGB CONC 30.9 g/dl (33.0-37.0); MEAN PLATELET VOLUME 9.4 fl (9.6-12.3); MONO # 0.9 10*3/uL (0.1-1.0); MONO % 9.5 % (3.0-9.0); NEUT # 5.8 10*3/uL (2.3-7.9); NEUT % 63.9 % (47.0-73.0); PLATELET COUNT AUTOMATED 325 10*3/uL (130-400); RED BLOOD COUNT 3.88 10*6/uL (4.50-5.90); RED CELL DISTRI WIDTH 13.2 % (0-14.5); WHITE BLOOD COUNT 9.1 10*3/uL (4.8-10.8)
[2019-03-31 06:41] LABS: ALBUMIN 2.8 gm/dl (3.1-4.5); BUN 14 mg/dl (7-24); CHLORIDE 106 mmol/L (98-107); HDL CHOLESTEROL 81 mg/dl (40-60); SGPT/ALT 20 U/L (12-78); SODIUM 140 mmol/L (136-145)
[2019-03-31 06:45] LABS: ALKALINE PHOSPHATASE 90 U/L (45-117); CHOLESTEROL 159 mg/dL (<200); CREATININE 1.22 mg/dL (0.70-1.30); LDL CHOLESTEROL 60 mg/dL (9-159); PHOSPHOROUS 2.8 mg/dL (2.5-4.9); SGOT/AST 10 IU/L (3-35); TOTAL PROTEIN 6.2 gm/dL (6.4-8.2); TRIGLYCERIDES 88 mg/dl (<150); VLDL CHOLESTEROL 18 mg/dL (6-40)
[2019-03-31 06:50] LABS: POTASSIUM 4.4 mmol/L (3.5-5.1)
[2019-03-31 07:40] LABS: VITAMIN D, 25-HYDROXY 52.1 ng/mL (30-100)
--- NOTE | 2019-03-31 08:15 | NUR ---
PT MEDICATED WITH PRN ZOFRAN AND MORPHINE FOR C/O LOWER ABDOMINAL PAIN (09/19) AND NAUSEA. WILL MONITOR.
--- NOTE | 2019-03-31 09:00 | NUR ---
Backer Up in to talk to patient. Patient states lives at home with his . There are 0 steps in the home. Physician: [place] [facility] [facility] Home health services: none Patient's level of ADLs: MINIMAL ASSIST Patient has working utilities: yes DME: cane, O2 @ 3L nc, portable O2 tanks, nebulizer, shower chair, O2 supplier BMS Follow-up physician's appointment after d/c: will be made by the hospitalist nurse director upon discharge Does patient want to access PORTAL?: no Discharge plan discussed with patient. states patient is 50% disabled with the [facility]. He lives at home with his . He is independent in his ADLs and ambulates with a cane. Discussed home health care services and he denies any home needs at this time. When medically stable he will be discharged to home. His will provide transportation on discharge. TANIA LICONA
--- NOTE | 2019-03-31 09:15 | NUR ---
PRN MEDS APPEAR EFFECTIVE. PT RESTING IN BED WITH EYES CLOSED.
--- NOTE | 2019-03-31 13:13 | NUR ---
PT MEDICATED WITH PRN MORPHINE FOR C/O ABD. PAIN. PT RATES PAIN 08/19. WILL MONITOR.
--- NOTE | 2019-03-31 14:55 | NUR ---
PRN MEDS EFFECTIVE PER PT.
--- NOTE | 2019-03-31 19:30 | NUR ---
PATIENT STATES MORPHINE HELPED. WILL CONTINUE TO MONITOR.
--- NOTE | 2019-03-31 19:42 | NUR ---
PATIENT C/O LEFT SIDED ABDOMINAL PAIN. RATES 07/20. MEDICATED WITH MORPHINE AT THIS TIME. WILL CHECK EFFECTIVENESS.
--- NOTE | 2019-03-31 19:59 | NUR ---
PATIENT BLOOD PRESSURE HIGH ON VITALS MACHINE. RECHECKED MANUALLY, 162/70. WILL CONTINUE TO MONITOR.
--- NOTE | 2019-03-31 20:01 | NUR ---
NOTIFIED DR. SAUNDERS ABOUT PATIENTS BP AND THAT PATIENTS HOME MEDICATIONS WERE NOT CONTINUED. STATED HE WOULD TAKE A LOOK AND CONTINUE THEM. WILL CONTINUE TO [facility].
--- NOTE | 2019-03-31 22:50 | NUR ---
PATIENTS IV LEAKING, NEW 22G IV PLACED IN PATIENTS LEFT FOREARM ON FIRST ATTEMPT. WILL CONTINUE TO MONITOR.
--- NOTE | 2019-03-31 22:51 | NUR ---
PATIENT C/O ABDOMINAL PAIN. RATES 05/20. MEDICATED WITH NORCO. WILL CHECK EFFECTIVENESS.
[2019-04-01] VITALS: BP 145/62
--- NOTE | 2019-04-01 04:00 | NUR ---
PATIENT SLEEPING, NO SIGNS OF DISTRESS. RESPIRATION EASY,NON LABORED. BED IN LOWEST POSITION, CALL LIGHT WITHIN REACH. WILL CONTINUE TO MONITOR.
[2019-04-01 06:19] LABS: BASO # 0.1 10*3/uL (0.0-0.1); BASO % 0.5 % (0.0-1.0); EOS # 0.6 10*3/uL (0.0-0.4); EOS % 6.5 % (1.0-4.0); HEMATOCRIT 36.9 % (42.0-52.0); HEMOGLOBIN 11.5 g/dl (14.0-18.0); LYMPH # 1.3 10*3/uL (1.3-4.4); LYMPH % 13.9 % (27.0-41.0); MEAN CELL VOLUME 101.7 fl (80.0-94.0); MEAN CORPUSCULAR HGB 31.7 pg (27.0-31.0); MEAN CORPUSCULAR HGB CONC 31.2 g/dl (33.0-37.0); MEAN PLATELET VOLUME 9.3 fl (9.6-12.3); MONO % 10.2 % (3.0-9.0); NEUT # 6.6 10*3/uL (2.3-7.9); NEUT % 68.6 % (47.0-73.0); PLATELET COUNT AUTOMATED 304 10*3/uL (130-400); RED BLOOD COUNT 3.63 10*6/uL (4.50-5.90); WHITE BLOOD COUNT 9.6 10*3/uL (4.8-10.8)
[2019-04-01 06:32] LABS: ALBUMIN 2.6 gm/dl (3.1-4.5); ALKALINE PHOSPHATASE 79 U/L (45-117); BUN 13 mg/dl (7-24); CHLORIDE 105 mmol/L (98-107); CREATININE 1.13 mg/dL (0.70-1.30); SGOT/AST 10 IU/L (3-35); SGPT/ALT 7 U/L (12-78); SODIUM 140 mmol/L (136-145); TOTAL PROTEIN 5.8 gm/dL (6.4-8.2)
[2019-04-01 08:00] VITALS: BP 107/60
--- NOTE | 2019-04-01 10:30 | NUR ---
Professor Of Biological Sciences in to see patient. [facility] sales representative girls' apparel in to see patient and patient is agreeable to their services. When medically stable he will be discharged to home.
[2019-04-01 12:00] VITALS: BP 110/56
--- NOTE | 2019-04-01 12:46 | NUR ---
Faxed new home health order to [facility], waiting on face to face
[2019-04-01 16:00] VITALS: BP 138/64
--- NOTE | 2019-04-01 19:30 | NUR ---
RECEIVED REPORT FROM JARAD FRANCOIS. PATIENT AWAKE LAYING IN BED. NO SIGNS OF DISTRESS. RESPIRATIONS EASY, NON LABORED. VOICES NO COMPLAINTS AT THIS TIME. SANDOSTATIN DRIP INFUSING. BED IN LOWEST POSITION,CALL LIGHT WITHIN REACH. WILL CONTINUE TO MONITOR.
[2019-04-01 20:00] VITALS: BP 137/64
--- NOTE | 2019-04-01 20:00 | NUR ---
UNABLE TO GIVE CIPRO WITH SANDOSTATIN DRIP. NEW 24G IV STARTED IN RIGHT HAND.
--- NOTE | 2019-04-01 21:48 | NUR ---
PATIENT C/O ABDOMINAL PAIN RATES 10. MEDICATED WITH NORCO. WILL CHECK EFFECTIVENESS.
[2019-04-02] VITALS (9 sets, daily range): BP systolic 128–152; BP diastolic 60–87
--- NOTE | 2019-04-02 | NUR ---
PATIENT SLEEPING, NORCO EFFECTIVE.
--- NOTE | 2019-04-02 04:09 | NUR ---
PATIENT MEDICATED WITH MORPHINE FOR C/O ABDOMINAL PAIN. RATES 07/20. WILL CHECK EFFECTIVENESS.
[2019-04-02 06:22] LABS: HEMATOCRIT 41.4 % (42.0-52.0); HEMOGLOBIN 12.9 g/dl (14.0-18.0)
[2019-04-02 06:49] LABS: BUN 12 mg/dl (7-24); CHLORIDE 103 mmol/L (98-107); CREATININE 1.16 mg/dL (0.70-1.30); POTASSIUM 4.1 mmol/L (3.5-5.1); SODIUM 139 mmol/L (136-145)
--- NOTE | 2019-04-02 10:29 | NUR ---
C/O PAIN TO ABD OF 5/10. IV MS GIVEN AT THIS TIME.WILL CONT TO MONITOR. CALL LIGHT IN REACH.
--- NOTE | 2019-04-02 11:29 | NUR ---
PT RESTING QUIELTY. IV MS EFF. WILL CONT TO MONITOR. CALL LIGHT IN REACH.
--- NOTE | 2019-04-02 21:25 | NUR ---
PATIENT RESTING IN BED, VOICES NO COMPLAINTS AT THIS TIME. DENIES PAIN. SANDOSTATIN DRIP INFUSING. RESPIRATIONS EASY, NON LABORED. NO SIGNS OF DISTRESS. BED IN LOWEST POSITION, CALL LIGHT WITHIN REACH. WILL CONTINUE TO MONITOR.
[2019-04-03] VITALS: BP 137/62
--- NOTE | 2019-04-03 05:54 | NUR ---
PATIENT C/O HEADACHE AND NAUSEA. RATES PAIN6/10. MEDICATED WITH NORCO AND ZOFRAN. WILL CHECK EFFECTIVENESS.
[2019-04-03 06:58] LABS: BASO # 0.1 10*3/uL (0.0-0.1); BASO % 0.5 % (0.0-1.0); EOS # 0.6 10*3/uL (0.0-0.4); EOS % 5.7 % (1.0-4.0); HEMATOCRIT 35.8 % (42.0-52.0); HEMOGLOBIN 11.4 g/dl (14.0-18.0); LYMPH # 1.1 10*3/uL (1.3-4.4); LYMPH % 11.4 % (27.0-41.0); MEAN CELL VOLUME 102.3 fl (80.0-94.0); MEAN CORPUSCULAR HGB 32.6 pg (27.0-31.0); MEAN CORPUSCULAR HGB CONC 31.8 g/dl (33.0-37.0); MEAN PLATELET VOLUME 9.3 fl (9.6-12.3); MONO % 10.5 % (3.0-9.0); NEUT # 7.1 10*3/uL (2.3-7.9); NEUT % 71.7 % (47.0-73.0); PLATELET COUNT AUTOMATED 298 10*3/uL (130-400); RED CELL DISTRI WIDTH 13.1 % (0-14.5); WHITE BLOOD COUNT 9.9 10*3/uL (4.8-10.8)
[2019-04-03 08:00] VITALS: BP 117/54
--- NOTE | 2019-04-03 10:37 | NUR ---
DR. BRASWELL CONTACTED REGARDING SANDOSTATIN AND FLAGYL INCOMPATABILTY. ORDERS OBTAINED TO CHANGE FLAGYL TO PO AND DC SANDOSTATIN AFTER NEXT BAG.
[2019-04-03 12:00] VITALS: BP 105/84
--- NOTE | 2019-04-03 12:33 | NUR ---
PT STATES HIS URINE IS DARK COLORED AND HE HAS NOT BEEN DRINKING MUCH. PT INSTRUCTED TO DRINK MORE WATER. WILL CONTINUE TO MONITOR.
[2019-04-03 16:00] VITALS: BP 123/49
[2019-04-03 20:00] VITALS: BP 126/51
--- NOTE | 2019-04-03 20:23 | NUR ---
SPOKE WITH DR SAUNDERS REGARDING PT C/O SORE THROAT. ORDER TAKEN FOR CEPACOL LOZENGERS.
--- NOTE | 2019-04-03 21:43 | NUR ---
MORPHINE ADMINISTERED FOR PT C/O 6/10 LOWER QUADRANT ABDOMINAL PAIN AND A HEADACHE. WILL CONTINUE TO MONITOR AND REASSESS.
--- NOTE | 2019-04-03 23:00 | NUR ---
PT ASLEEP AT THIS TIME. NO SIGNS OF DISCOMFORT OR DISTRESS.
[2019-04-04] VITALS: BP 126/64
--- NOTE | 2019-04-04 02:29 | NUR ---
24 HOUR CHART CHECK COMPLETE.
[2019-04-04 06:27] LABS: BASO # 0.1 10*3/uL (0.0-0.1); BASO % 0.6 % (0.0-1.0); EOS # 0.7 10*3/uL (0.0-0.4); EOS % 6.8 % (1.0-4.0); HEMATOCRIT 38.4 % (42.0-52.0); LYMPH # 1.7 10*3/uL (1.3-4.4); LYMPH % 16.6 % (27.0-41.0); MEAN CELL VOLUME 102.9 fl (80.0-94.0); MEAN CORPUSCULAR HGB 32.2 pg (27.0-31.0); MEAN CORPUSCULAR HGB CONC 31.3 g/dl (33.0-37.0); MEAN PLATELET VOLUME 9.2 fl (9.6-12.3); MONO # 1.1 10*3/uL (0.1-1.0); MONO % 10.8 % (3.0-9.0); NEUT # 6.5 10*3/uL (2.3-7.9); PLATELET COUNT AUTOMATED 328 10*3/uL (130-400); RED BLOOD COUNT 3.73 10*6/uL (4.50-5.90); RED CELL DISTRI WIDTH 13.2 % (0-14.5)
[2019-04-04 08:00] VITALS: BP 118/50
--- NOTE | 2019-04-04 08:00 | NUR ---
IN TO ROOM. PATIENT AWAKE, ALERT AND ORIENTED SITTING ON SIDE OF BED. NO STATED COMPLAINTS AT THIS TIME. PT STATES HE WOULD LIKE TO GO HOME TODAY. RESPIRATIONS ARE EASY AND REGULAR WITH NO DISTRESS NOTED. DENIES PAIN. 2L 02 NC. BED IN LOWEST LOCKED POSITION AND CALL LIGHT WITHIN REACH. WILL CONTINUE TO MONITOR.
[2019-04-04] MEDS ORDERED: CIPRO500 MG PO (11:20)
[2019-04-04] MEDS ORDERED: METRONIDAZOLE500 M1 PO (11:20)
--- NOTE | 2019-04-04 12:50 | NUR ---
Discharge instructions reviewed with patient/family. Patient receptive and verbalizes understanding. Follow-up care arranged. Written instructions given to patient/family. SLAUD LEONE
== END 2019-04-04 12:50 | disposition home or self-care (01) | DRG 871 ==
LOC: ED 07:28 → EDHOLD 10:32 → 5E 10:32
PROVIDERS: Emergency Medicine; Internal Medicine; Internal Medicine Gastroenterology; Student in an Organized Health Care Education/Training Program; ADMIT Internal Medicine
PROC: 0DJD8ZZ Inspection of Lower Intestinal Tract, Via Natural or Artificial Opening Endoscopic (ICD-10-PCS; principal; 2019-03-31)
PROC: 0DJD8ZZ Inspection of Lower Intestinal Tract, Via Natural or Artificial Opening Endoscopic (ICD-10-PCS; 2019-04-02)
DX: A41.9 Sepsis, unspecified organism (principal); E43 Unspecified severe protein-calorie malnutrition; K57.33 Diverticulitis of large intestine without perforation or abscess with bleeding; K62.5 Hemorrhage of anus and rectum; J96.11 Chronic respiratory failure with hypoxia; E87.6 Hypokalemia; D50.9 Iron deficiency anemia, unspecified; J44.9 Chronic obstructive pulmonary disease, unspecified; F32.9 Major depressive disorder, single episode, unspecified; K21.9 Gastro-esophageal reflux disease without esophagitis; F41.9 Anxiety disorder, unspecified; F43.10 Post-traumatic stress disorder, unspecified; E66.9 Obesity, unspecified; G20 Parkinson's disease; I10 Essential (primary) hypertension; Z88.5 Allergy status to narcotic agent; Z79.82 Long term (current) use of aspirin; Z82.49 Family history of ischemic heart disease and other diseases of the circulatory system; Z83.6 Family history of other diseases of the respiratory system; Z68.32 Body mass index [BMI] 32.0-32.9, adult

== ENCOUNTER 2021-02-10 14:14 | Emergency (ER) | payer OTHER ==
[~2021-02-10 14:14] MED LIST changes: +ASPIRIN ADULT L81 M2 PO; +AVPAK AZITHROM250 M1 PO; +CIPRO500 MG PO; +CRESTOR40 M1 PO; +CYCLOBENZAPRINE10 MG PO; +GABAPENTIN100 M2 PO; +HYDROCODONE-AC1 EAC1 PO; +METRONIDAZOLE500 M1 PO; +MUCUS RELIEF600 MG PO; +OCUVITE WITH L1 EACH PO; +SINEMET 25-1001 EACH PO; +TAMSULOSIN HCL0.4 MG PO
[2021-02-10 14:20] VITALS: BP 121/47
[2021-02-10 14:46] LABS: HEMATOCRIT 31.4 % (42.0-52.0); MEAN CELL VOLUME 101.9 fl (80.0-94.0); MEAN CORPUSCULAR HGB 30.8 pg (27.0-31.0); MEAN CORPUSCULAR HGB CONC 30.3 g/dl (33.0-37.0); MEAN PLATELET VOLUME 8.4 fl (9.6-12.3); PLATELET COUNT AUTOMATED 336 10*3/uL (130-400); RED BLOOD COUNT 3.08 10*6/uL (4.50-5.90); RED CELL DISTRI WIDTH 14.6 % (0-14.5); WHITE BLOOD COUNT 6.4 10*3/uL (4.8-10.8)
[2021-02-10 14:57] LABS: ACT PARTIAL THROMBO TIME 40.2 SECONDS (20.0-32.1); INTERNATIONAL NORM RATIO 1.4 (2.0-3.5)
[2021-02-10 15:03] LABS: PLATELET SUFFICIENCY NORMAL (NORMAL); TOTAL CELLS COUNTED 100 #CELLS
[2021-02-10 15:10] LABS: ALBUMIN 2.1 gm/dl (3.1-4.5); ALKALINE PHOSPHATASE 109 U/L (45-117); BUN 12 mg/dl (7-24); CHLORIDE 104 mmol/L (98-107); CPK 83 U/L (39-308); CREATININE 1.11 mg/dL (0.70-1.30); POTASSIUM 4.1 mmol/L (3.5-5.1); SGOT/AST 20 IU/L (3-35); SGPT/ALT 6 U/L (12-78); SODIUM 139 mmol/L (136-145); TOTAL PROTEIN 7.7 gm/dL (6.4-8.2)
[2021-02-10 16:06] LABS: BILIRUBIN Negative (Negative); BLOOD Negative (Negative); CLARITY Clear (Clear); COLOR Yellow (Yellow); GLUCOSE Negative (Negative); KETONE Negative (Negative); LEUKO ESTERASE Negative (Negative); NITRITE Negative (Negative)
[2021-02-10 16:45] LABS: WBC 0-2 wbc/hpf (0-5)
[2021-02-10 16:46] LABS: BACTERIA TRACE
== END 2021-02-10 18:48 ==
LOC: ED 14:14
PROVIDERS: Emergency Medicine
DX: R41.0 Disorientation, unspecified (principal); I82.402 Acute embolism and thrombosis of unspecified deep veins of left lower extremity; J44.9 Chronic obstructive pulmonary disease, unspecified; K21.9 Gastro-esophageal reflux disease without esophagitis; I10 Essential (primary) hypertension; Z87.891 Personal history of nicotine dependence; Z79.899 Other long term (current) drug therapy

== ENCOUNTER 2021-02-13 17:19 | Emergency (ER) | payer OTHER ==
[~2021-02-13] VITALS: Ht 190.5 cm; Wt 117.9 kg
[2021-02-13 17:43] LABS: HEMATOCRIT 36.8 % (42.0-52.0); MEAN CORPUSCULAR HGB 31.1 pg (27.0-31.0); MEAN CORPUSCULAR HGB CONC 29.6 g/dl (33.0-37.0); MEAN PLATELET VOLUME 8.9 fl (9.6-12.3); PLATELET COUNT AUTOMATED 365 10*3/uL (130-400); RED BLOOD COUNT 3.51 10*6/uL (4.50-5.90); RED CELL DISTRI WIDTH 14.6 % (0-14.5); WHITE BLOOD COUNT 7.4 10*3/uL (4.8-10.8)
[2021-02-13 17:56] LABS: ALBUMIN 2.5 gm/dl (3.1-4.5); ALKALINE PHOSPHATASE 121 U/L (45-117); BUN 11 mg/dl (7-24); CHLORIDE 103 mmol/L (98-107); CREATININE 1.12 mg/dL (0.70-1.30); POTASSIUM 3.8 mmol/L (3.5-5.1); SGOT/AST 23 IU/L (3-35); SGPT/ALT 8 U/L (12-78); SODIUM 138 mmol/L (136-145); TOTAL PROTEIN 8.3 gm/dL (6.4-8.2)
[2021-02-13 17:58] LABS: BILIRUBIN Negative (Negative); BLOOD Negative (Negative); CLARITY Clear (Clear); COLOR Dark Yellow (Yellow); GLUCOSE Negative (Negative); KETONE Trace (Negative); LEUKO ESTERASE Negative (Negative); NITRITE Negative (Negative); PH 5.5 (4.5-8.0); SPECIFIC GRAVITY 1.025 (1.001-1.030)
[2021-02-13 18:15] LABS: MEAN CELL VOLUME 104.8 fl (80.0-94.0)
[2021-02-13 18:18] LABS: BASOPHILS 1 % (0-1); BURR CELLS FEW; PLATELET SUFFICIENCY NORMAL (NORMAL); TOTAL CELLS COUNTED 100 #CELLS
[2021-02-13 18:20] LABS: BACTERIA 2+; EPITHELIAL CELLS 0-2; HYALINE CAST 0-2; MUCOUS 1+
[2021-02-13 18:21] LABS: VACUOLATION OF NEUTROPHILS SLIGHT
[2021-02-13 20:16] VITALS: BP 159/59
[2021-02-22] MEDS ORDERED: GENTLE LAXATIVE10 MG R (11:36)
[2021-02-22] MEDS ORDERED: MULTIPLE VITAM1 EAC1 PO (11:39)
[2021-02-22] MEDS ORDERED: XARELTO15 M1 PO (11:41)
[2021-02-22] MEDS ORDERED: RISPERIDONE1 MG PO (11:42)
[2021-02-23] MEDS ORDERED: RISPERDAL2 M1 PO (15:07)
[2021-02-23] MEDS ORDERED: MILK OF MA400 MG/51 PO (15:08)
[2021-02-23] MEDS ORDERED: MULTI-VITAMIN1 EACH PO (15:08)
[2021-02-23] MEDS ORDERED: DULCOLAX10 M1 R (15:10)
== END 2021-02-13 22:10 ==
LOC: ED 17:19
PROVIDERS: Student in an Organized Health Care Education/Training Program
DX: G20 Parkinson's disease (principal); D64.9 Anemia, unspecified; E88.09 Other disorders of plasma-protein metabolism, not elsewhere classified

== ENCOUNTER 2021-02-27 09:59 | Inpatient (IN) | payer OTHER ==
[~2021-02-27] VITALS: Ht 190.5 cm; Wt 107.0 kg
[~2021-02-27 09:59] MED LIST changes: +AQUAPHOR396 GM T; +ATIVAN0.5 MG PO; +ATIVAN2 MG/1 ML IM; +DULCOLAX10 M1 R; +GENTLE LAXATIVE10 MG R; +GEODON20 MG/1 ML IM; +LIPITOR40 MG PO; +MILK OF MA400 MG/51 PO; +MULTI-VITAMIN1 EACH PO; +MULTIPLE VITAM1 EAC1 PO; +NUPLAZID34 MG PO; +NYST SUSP PO; +REMERON15 M2 PO; +RISPERDAL2 M1 PO; +RISPERIDONE1 MG PO; +XARELTO15 M1 PO
[2021-02-27 18:53] VITALS: BP 147/61
[2021-02-27 20:00] VITALS: BP 146/58
[2021-02-27 22:51] VITALS: BP 146/58
[2021-02-28 08:08] VITALS: BP 110/50
[2021-02-28 10:31] VITALS: BP 138/64
[2021-02-28 18:35] LABS: BILIRUBIN Negative (Negative); BLOOD 3+ (Negative); CLARITY Turbid (Clear); COLOR Yellow (Yellow); GLUCOSE Negative (Negative); KETONE Negative (Negative); LEUKO ESTERASE 3+ (Negative); NITRITE Positive (Negative); SPECIFIC GRAVITY 1.015 (1.001-1.030)
[2021-02-28 18:57] LABS: WBC TNTC wbc/hpf (0-5)
[2021-02-28 20:00] VITALS: BP 138/70
[2021-03-01 07:53] LABS: BASO # 0.1 10*3/uL (0.0-0.1); BASO % 0.8 % (0.0-1.0); EOS # 1.2 10*3/uL (0.0-0.4); EOS % 11.7 % (1.0-4.0); LYMPH # 1.7 10*3/uL (1.3-4.4); LYMPH % 16.5 % (27.0-41.0); MEAN CELL VOLUME 95.1 fl (80.0-94.0); MEAN CORPUSCULAR HGB 29.7 pg (27.0-31.0); MEAN CORPUSCULAR HGB CONC 31.2 g/dl (33.0-37.0); MONO % 9.2 % (3.0-9.0); NEUT # 6.4 10*3/uL (2.3-7.9); NEUT % 61.4 % (47.0-73.0); PLATELET COUNT AUTOMATED 418 10*3/uL (130-400); RED BLOOD COUNT 3.47 10*6/uL (4.50-5.90); RED CELL DISTRI WIDTH 14.6 % (0-14.5); WHITE BLOOD COUNT 10.5 10*3/uL (4.8-10.8)
[2021-03-01 08:00] VITALS: BP 147/78
[2021-03-01 20:00] VITALS: BP 143/58
[2021-03-02 08:17] VITALS: BP 158/72
[2021-03-02 11:40] VITALS: BP 142/73
[2021-03-02 20:00] VITALS: BP 140/72
[2021-03-03 08:00] VITALS: BP 135/69
[2021-03-03 20:00] VITALS: BP 133/52
[2021-03-04 07:49] VITALS: BP 140/60
[2021-03-04 20:00] VITALS: BP 130/54
[2021-03-05 07:56] VITALS: BP 140/56
[2021-03-05 20:00] VITALS: BP 117/54
[2021-03-06 08:14] VITALS: BP 113/54
[2021-03-06] MEDS ORDERED: RIVASTIGMINE1 EAC1 T (18:45)
[2021-03-06] MEDS ORDERED: LORAZEPAM0.5 MG PO (18:45)
[2021-03-06] MEDS ORDERED: MINIPRESS1 M1 PO (18:45)
[2021-03-06] MEDS ORDERED: NAMENDA-5 PO (18:45)
[2021-03-06] MEDS ORDERED: MIRTAZAPINE15 M2 PO (18:45)
[2021-03-06] MEDS ORDERED: BENZTROPINE ME0.5 MG PO (18:45)
[2021-03-06] MEDS ORDERED: ROZEREM8 MG PO (18:45)
[2021-03-06 20:00] VITALS: BP 126/68
[2021-03-07] MEDS ORDERED: HYDROCODONE-AC1 EAC1 PO (12:03)
[2021-03-07] MEDS ORDERED: LORAZEPAM0.5 MG PO (12:10)
[2021-03-07] MEDS ORDERED: SINEMET 25-1001 EACH PO (12:10)
[2021-03-07] MEDS ORDERED: CYMBALTA30 MG PO (12:13)
[2021-03-07] MEDS ORDERED: CYMBALTA60 MG PO (12:13)
[2021-03-07] MEDS ORDERED: LEVOTHYROXINE25 MCG PO ×2 (12:15)
== END 2021-03-06 20:34 | disposition short-term general hospital (02) | DRG 885 ==
LOC: 3N 09:59
PROVIDERS: Family Medicine; ADMIT Psychiatry & Neurology Psychiatry; ATTEND Psychiatry & Neurology Psychiatry
DX: F23 Brief psychotic disorder (principal); E43 Unspecified severe protein-calorie malnutrition; F43.10 Post-traumatic stress disorder, unspecified; D53.9 Nutritional anemia, unspecified; Z66 Do not resuscitate; K21.9 Gastro-esophageal reflux disease without esophagitis; R73.9 Hyperglycemia, unspecified; J44.9 Chronic obstructive pulmonary disease, unspecified; F32.A Depression, unspecified; G20 Parkinson's disease; F41.9 Anxiety disorder, unspecified; Z68.30 Body mass index [BMI] 30.0-30.9, adult

== ENCOUNTER 2021-03-06 18:51 | Inpatient (IN) | payer OTHER ==
[~2021-03-06] VITALS: Ht 190.5 cm; Wt 111.1 kg
[~2021-03-06 18:51] MED LIST changes: +BENZTROPINE ME0.5 MG PO; +LORAZEPAM0.5 MG PO; +MINIPRESS1 M1 PO; +MIRTAZAPINE15 M2 PO; +NAMENDA-5 PO; +RIVASTIGMINE1 EAC1 T; +ROZEREM8 MG PO
[2021-03-06 20:40] VITALS: BP 136/59
[2021-03-06 21:56] VITALS: BP 136/59
[2021-03-07] VITALS: BP 134/53
[2021-03-07 07:00] LABS: BASO # 0.1 10*3/uL (0.0-0.1); BASO % 0.7 % (0.0-1.0); EOS % 13.8 % (1.0-4.0); HEMATOCRIT 29.8 % (42.0-52.0); LYMPH # 1.5 10*3/uL (1.3-4.4); LYMPH % 20.3 % (27.0-41.0); MEAN CELL VOLUME 96.8 fl (80.0-94.0); MEAN CORPUSCULAR HGB 30.2 pg (27.0-31.0); MEAN CORPUSCULAR HGB CONC 31.2 g/dl (33.0-37.0); MEAN PLATELET VOLUME 8.7 fl (9.6-12.3); MONO # 0.7 10*3/uL (0.1-1.0); MONO % 8.9 % (3.0-9.0); NEUT # 4.2 10*3/uL (2.3-7.9); NEUT % 56.2 % (47.0-73.0); PLATELET COUNT AUTOMATED 395 10*3/uL (130-400); RED BLOOD COUNT 3.08 10*6/uL (4.50-5.90); RED CELL DISTRI WIDTH 15.1 % (0-14.5); WHITE BLOOD COUNT 7.5 10*3/uL (4.8-10.8)
[2021-03-07 07:08] LABS: ACT PARTIAL THROMBO TIME 33.3 SECONDS (20.0-32.1); INTERNATIONAL NORM RATIO 1.2 (2.0-3.5)
[2021-03-07 07:19] LABS: ALBUMIN 2.1 gm/dl (3.1-4.5); ALKALINE PHOSPHATASE 109 U/L (45-117); BUN 14 mg/dl (7-24); CHLORIDE 106 mmol/L (98-107); CREATININE 0.96 mg/dL (0.70-1.30); POTASSIUM 3.8 mmol/L (3.5-5.1); SGOT/AST 16 IU/L (3-35); SODIUM 139 mmol/L (136-145); TOTAL PROTEIN 7.2 gm/dL (6.4-8.2)
[2021-03-07 07:31] LABS: SGPT/ALT < 6 U/L (12-78)
[2021-03-07 08:00] VITALS: BP 110/60
[2021-03-07] MEDS ORDERED: HYDROCODONE-AC1 EAC1 PO (12:03)
[2021-03-07] MEDS ORDERED: LORAZEPAM0.5 MG PO (12:10)
[2021-03-07] MEDS ORDERED: SINEMET 25-1001 EACH PO (12:10)
[2021-03-07] MEDS ORDERED: CYMBALTA30 MG PO (12:13)
[2021-03-07] MEDS ORDERED: CYMBALTA60 MG PO (12:13)
[2021-03-07] MEDS ORDERED: LEVOTHYROXINE25 MCG PO ×2 (12:15)
== END 2021-03-07 16:26 | DRG 695 ==
LOC: 5E 18:51
PROVIDERS: Internal Medicine; ADMIT Internal Medicine; ATTEND Internal Medicine
DX: R31.9 Hematuria, unspecified (principal); E43 Unspecified severe protein-calorie malnutrition; F23 Brief psychotic disorder; G20 Parkinson's disease; F43.10 Post-traumatic stress disorder, unspecified; F91.9 Conduct disorder, unspecified; D53.9 Nutritional anemia, unspecified; F17.210 Nicotine dependence, cigarettes, uncomplicated; Z82.5 Family history of asthma and other chronic lower respiratory diseases; Z79.1 Long term (current) use of non-steroidal anti-inflammatories (NSAID); Z79.51 Long term (current) use of inhaled steroids; Z79.899 Other long term (current) drug therapy; Z88.5 Allergy status to narcotic agent; Z88.8 Allergy status to other drugs, medicaments and biological substances; Z68.30 Body mass index [BMI] 30.0-30.9, adult

== ENCOUNTER → 2021-03-30 | Outpatient (CLI) | payer OTHER ==
[~2021-03-30] MED LIST changes: +CYMBALTA30 MG PO; +FUROSEMIDE20 M1 PO; +LEVOTHYROXINE25 MCG PO; +MILK OF MA400 MG/5 M PO
== END | disposition home or self-care (01) ==
LOC: ORTHO 00:14
PROVIDERS: ATTEND Orthopaedic Surgery
DX: S72.8X2D Other fracture of left femur, subsequent encounter for closed fracture with routine healing (principal); X58.XXXD Exposure to other specified factors, subsequent encounter

== ENCOUNTER → 2021-05-11 | Outpatient (CLI) | payer OTHER | END | disposition home or self-care (01) | LOC: ORTHO 01:51 | PROVIDERS: ATTEND Orthopaedic Surgery | DX: S72.92XD Unspecified fracture of left femur, subsequent encounter for closed fracture with routine healing (principal); X58.XXXD Exposure to other specified factors, subsequent encounter ==

== ENCOUNTER → 2021-08-24 | Outpatient (CLI) | payer OTHER | END | disposition home or self-care (01) | LOC: ORTHO 01:26 | PROVIDERS: ATTEND Orthopaedic Surgery | DX: S72.92XD Unspecified fracture of left femur, subsequent encounter for closed fracture with routine healing (principal); Z96.642 Presence of left artificial hip joint; X58.XXXD Exposure to other specified factors, subsequent encounter ==

== ENCOUNTER → 2022-01-01 | Outpatient (CLI) | payer OTHER ==
[~2022-01-01] MED LIST changes: +ALDACTONE25 MG PO; +ATORVASTATIN CA40 M1 PO; +LISINOPRIL5 MG PO; +PRAZOSIN HCL2 MG PO
[2022-01-01 10:17] LABS: BASO # 0.1 10*3/uL (0.0-0.1); EOS # 0.4 10*3/uL (0.0-0.4); EOS % 6.1 % (1.0-4.0); LYMPH # 1.8 10*3/uL (1.3-4.4); LYMPH % 27.4 % (27.0-41.0); MEAN CELL VOLUME 97.9 fl (80.0-94.0); MEAN CORPUSCULAR HGB CONC 31.7 g/dl (33.0-37.0); MEAN PLATELET VOLUME 9.4 fl (9.6-12.3); MONO # 0.8 10*3/uL (0.1-1.0); MONO % 12.5 % (3.0-9.0); NEUT # 3.5 10*3/uL (2.3-7.9); NEUT % 52.9 % (47.0-73.0); PLATELET COUNT AUTOMATED 293 10*3/uL (130-400); RED BLOOD COUNT 4.29 10*6/uL (4.50-5.90); RED CELL DISTRI WIDTH 16.3 % (0-14.5); WHITE BLOOD COUNT 6.7 10*3/uL (4.8-10.8)
== END | disposition home or self-care (01) ==
LOC: LAB 09:37
PROVIDERS: ATTEND Family Medicine
DX: J43.9 Emphysema, unspecified (principal); R06.2 Wheezing

== ENCOUNTER → 2022-02-04 | Outpatient (CLI) | payer OTHER ==
[~2022-02-04] MED LIST changes: +EXELON1 EAC1 T; +FUROSEMIDE40 MG PO; +LEVOFLOXACIN500 MG PO; +MELATONIN3 MG PO
[2022-02-04 10:19] LABS: BUN 27 mg/dl (9-23); CHLORIDE 102 mmol/L (98-107); CREATININE 1.26 mg/dL (0.70-1.30); POTASSIUM 3.5 mmol/L (3.4-5.1); SODIUM 143 mmol/L (136-145)
== END | disposition home or self-care (01) ==
LOC: LAB 07:41
PROVIDERS: ATTEND Family Medicine
DX: N18.30 Chronic kidney disease, stage 3 unspecified (principal); I50.9 Heart failure, unspecified

== ENCOUNTER 2022-03-10 06:08 | Inpatient (IN) | payer OTHER ==
[~2022-03-10] VITALS: Ht 188 cm; Wt 118.0 kg
[2022-03-10 06:20] VITALS: BP 95/62
[2022-03-10 07:11] LABS: BASO % 0.2 % (0.0-1.0); EOS # 0.2 10*3/uL (0.0-0.4); EOS % 1.5 % (1.0-4.0); HEMATOCRIT 43.7 % (42.0-52.0); LYMPH # 0.3 10*3/uL (1.3-4.4); MEAN CELL VOLUME 99.8 fl (80.0-94.0); MEAN CORPUSCULAR HGB 31.3 pg (27.0-31.0); MEAN CORPUSCULAR HGB CONC 31.4 g/dl (33.0-37.0); MEAN PLATELET VOLUME 9.4 fl (9.6-12.3); MONO # 0.8 10*3/uL (0.1-1.0); MONO % 6.1 % (3.0-9.0); NEUT # 11.7 10*3/uL (2.3-7.9); NEUT % 89.8 % (47.0-73.0); PLATELET COUNT AUTOMATED 345 10*3/uL (130-400); RED BLOOD COUNT 4.38 10*6/uL (4.50-5.90); RED CELL DISTRI WIDTH 14.4 % (0-14.5)
[2022-03-10 07:55] LABS: ALKALINE PHOSPHATASE 128 U/L (46-116); BUN 25 mg/dl (9-23); CHLORIDE 103 mmol/L (98-107); LIPASE 48 U/L (12-53); POTASSIUM 3.9 mmol/L (3.4-5.1); TOTAL PROTEIN 7.5 gm/dL (6.0-8.0)
[2022-03-10 08:04] LABS: SGPT/ALT < 7 U/L (10-49)
[2022-03-10 08:23] VITALS: BP 98/64
[2022-03-10 15:04] VITALS: BP 100/55
[2022-03-10 15:30] VITALS: BP 146/56
[2022-03-10 20:00] VITALS: BP 138/56
[2022-03-11] VITALS: BP 112/50
[2022-03-11 04:31] VITALS: BP 130/55
[2022-03-11 06:11] LABS: ALKALINE PHOSPHATASE 81 U/L (46-116); BUN 24 mg/dl (9-23); CHLORIDE 105 mmol/L (98-107); CHOLESTEROL 101 mg/dL (<200); FREE T4 0.96 ng/dl (0.89-1.76); LDL CHOLESTEROL 36 mg/dL (9-159); POTASSIUM 4.4 mmol/L (3.4-5.1); SGPT/ALT < 7 U/L (10-49); THYROID STIM HORMONE (HS) 0.412 uIU/ml (0.550-4.780); TOTAL PROTEIN 5.9 gm/dL (6.0-8.0); TRIGLYCERIDES 45 mg/dl (<150)
[2022-03-11 06:27] LABS: BASO % 0.2 % (0.0-1.0); HEMATOCRIT 34.2 % (42.0-52.0); LYMPH # 0.6 10*3/uL (1.3-4.4); LYMPH % 4.9 % (27.0-41.0); MEAN CORPUSCULAR HGB 31.3 pg (27.0-31.0); MEAN CORPUSCULAR HGB CONC 31.3 g/dl (33.0-37.0); MEAN PLATELET VOLUME 9.9 fl (9.6-12.3); MONO # 1.1 10*3/uL (0.1-1.0); MONO % 8.8 % (3.0-9.0); NEUT # 10.7 10*3/uL (2.3-7.9); NEUT % 85.6 % (47.0-73.0); PLATELET COUNT AUTOMATED 295 10*3/uL (130-400); RED BLOOD COUNT 3.42 10*6/uL (4.50-5.90); RED CELL DISTRI WIDTH 14.7 % (0-14.5); WHITE BLOOD COUNT 12.5 10*3/uL (4.8-10.8)
[2022-03-11 06:32] LABS: ACT PARTIAL THROMBO TIME 32.2 SECONDS (20.0-32.1)
[2022-03-11 08:00] VITALS: BP 118/53
[2022-03-11 12:00] VITALS: BP 129/51
[2022-03-11 16:00] VITALS: BP 139/56
[2022-03-11 20:00] VITALS: BP 154/65
[2022-03-12] VITALS: BP 150/60
[2022-03-12 08:00] VITALS: BP 153/57
[2022-03-12 12:00] VITALS: BP 150/64
[2022-03-12] MEDS ORDERED: PREDNISONE10 MG PO (12:23)
[2022-03-12] MEDS ORDERED: DOXYCYCLINE HY100 M3 PO (12:23)
[2022-03-12] MEDS ORDERED: TRAZODONE50 MG PO (12:23)
[2022-03-12 16:00] VITALS: BP 175/70
== END 2022-03-12 17:03 | disposition home or self-care (01) | DRG 871 ==
LOC: ED 06:08 → EDHOLD 10:53 → 4E 10:53
PROVIDERS: Emergency Medicine; Student in an Organized Health Care Education/Training Program; ADMIT Family Medicine; ATTEND Family Medicine
PROC: BD1BYZZ Fluoroscopy of Mouth/Oropharynx using Other Contrast (ICD-10-PCS; principal; 2022-03-12)
DX: A41.9 Sepsis, unspecified organism (principal); J69.0 Pneumonitis due to inhalation of food and vomit; N17.0 Acute kidney failure with tubular necrosis; J96.11 Chronic respiratory failure with hypoxia; J44.1 Chronic obstructive pulmonary disease with (acute) exacerbation; I50.32 Chronic diastolic (congestive) heart failure; M27.2 Inflammatory conditions of jaws; Z20.822 Contact with and (suspected) exposure to COVID-19; R65.20 Severe sepsis without septic shock; D53.9 Nutritional anemia, unspecified; I11.0 Hypertensive heart disease with heart failure; K21.9 Gastro-esophageal reflux disease without esophagitis; G20 Parkinson's disease; F41.9 Anxiety disorder, unspecified; I95.9 Hypotension, unspecified; M47.816 Spondylosis without myelopathy or radiculopathy, lumbar region; R73.9 Hyperglycemia, unspecified; F43.10 Post-traumatic stress disorder, unspecified; E78.5 Hyperlipidemia, unspecified; Z96.659 Presence of unspecified artificial knee joint; E55.9 Vitamin D deficiency, unspecified; F32.9 Major depressive disorder, single episode, unspecified; Z96.642 Presence of left artificial hip joint; F03.90 Unspecified dementia, unspecified severity, without behavioral disturbance, psychotic disturbance, mood disturbance, and anxiety; G89.29 Other chronic pain; F17.210 Nicotine dependence, cigarettes, uncomplicated; Z88.5 Allergy status to narcotic agent; Z82.5 Family history of asthma and other chronic lower respiratory diseases; Z82.49 Family history of ischemic heart disease and other diseases of the circulatory system; Z90.5 Acquired absence of kidney; Z86.718 Personal history of other venous thrombosis and embolism; Z85.048 Personal history of other malignant neoplasm of rectum, rectosigmoid junction, and anus; Z85.53 Personal history of malignant neoplasm of renal pelvis; Z79.899 Other long term (current) drug therapy

== ENCOUNTER 2022-04-24 16:42 | Inpatient (IN) | payer OTHER ==
[~2022-04-24] VITALS: Ht 187.9 cm; Wt 113.4 kg
[~2022-04-24 16:42] MED LIST changes: +CEPHALEXIN500 M1 PO; +DOXYCYCLINE HY100 M3 PO; +TRAZODONE50 MG PO; +VIBRAMYCIN HYC100 MG PO
[2022-04-24 17:01] VITALS: BP 142/66
[2022-04-24 17:31] LABS: BASO # 0.1 10*3/uL (0.0-0.1); BASO % 0.4 % (0.0-1.0); EOS # 0.2 10*3/uL (0.0-0.4); EOS % 1.6 % (1.0-4.0); HEMATOCRIT 43.9 % (42.0-52.0); LYMPH # 1.4 10*3/uL (1.3-4.4); LYMPH % 12.5 % (27.0-41.0); MEAN CELL VOLUME 97.8 fl (80.0-94.0); MEAN CORPUSCULAR HGB CONC 31.7 g/dl (33.0-37.0); MEAN PLATELET VOLUME 9.1 fl (9.6-12.3); MONO # 1.2 10*3/uL (0.1-1.0); MONO % 10.4 % (3.0-9.0); NEUT # 8.4 10*3/uL (2.3-7.9); NEUT % 74.8 % (47.0-73.0); PLATELET COUNT AUTOMATED 265 10*3/uL (130-400); RED BLOOD COUNT 4.49 10*6/uL (4.50-5.90); RED CELL DISTRI WIDTH 16.5 % (0-14.5); WHITE BLOOD COUNT 11.2 10*3/uL (4.8-10.8)
[2022-04-24 17:47] LABS: POTASSIUM 3.7 mmol/L (3.4-5.1); TOTAL PROTEIN 7.8 gm/dL (6.0-8.0)
[2022-04-24 17:52] LABS: ACT PARTIAL THROMBO TIME 28.4 SECONDS (20.0-32.1); INTERNATIONAL NORM RATIO 1.1 (2.0-3.5)
[2022-04-24 21:00] VITALS: BP 126/64
[2022-04-24 23:17] VITALS: BP 117/61
[2022-04-25 05:48] LABS: POTASSIUM 3.6 mmol/L (3.4-5.1); TOTAL PROTEIN 6.8 gm/dL (6.0-8.0)
[2022-04-25 06:16] LABS: BASO # 0.1 10*3/uL (0.0-0.1); BASO % 0.6 % (0.0-1.0); EOS # 0.4 10*3/uL (0.0-0.4); EOS % 3.8 % (1.0-4.0); HEMATOCRIT 39.5 % (42.0-52.0); LYMPH # 1.6 10*3/uL (1.3-4.4); LYMPH % 15.7 % (27.0-41.0); MEAN CELL VOLUME 99.5 fl (80.0-94.0); MEAN CORPUSCULAR HGB 30.7 pg (27.0-31.0); MEAN CORPUSCULAR HGB CONC 30.9 g/dl (33.0-37.0); MEAN PLATELET VOLUME 9.6 fl (9.6-12.3); MONO # 1.1 10*3/uL (0.1-1.0); MONO % 10.4 % (3.0-9.0); NEUT % 69.2 % (47.0-73.0); PLATELET COUNT AUTOMATED 247 10*3/uL (130-400); RED BLOOD COUNT 3.97 10*6/uL (4.50-5.90); RED CELL DISTRI WIDTH 16.4 % (0-14.5); WHITE BLOOD COUNT 10.1 10*3/uL (4.8-10.8)
[2022-04-25 08:00] VITALS: BP 101/51
[2022-04-25 12:00] VITALS: BP 140/58
[2022-04-25 12:15] LABS: BILIRUBIN Negative (Negative); BLOOD Negative (Negative); CLARITY Clear (Clear); COLOR Yellow (Yellow); GLUCOSE Negative (Negative); KETONE Trace (Negative); LEUKO ESTERASE Negative (Negative); NITRITE Negative (Negative); UROBILINOGEN 0.2 E.U./dl (0.0-1.0)
[2022-04-25 12:24] LABS: BACTERIA 2+
[2022-04-25 16:00] VITALS: BP 155/98
[2022-04-25 16:39] VITALS: BP 133/51
[2022-04-25 20:00] VITALS: BP 118/56
[2022-04-26] VITALS: BP 149/54
[2022-04-26 04:00] VITALS: BP 128/60
[2022-04-26 06:13] LABS: BASO # 0.1 10*3/uL (0.0-0.1); BASO % 0.6 % (0.0-1.0); EOS # 0.6 10*3/uL (0.0-0.4); EOS % 6.5 % (1.0-4.0); HEMATOCRIT 34.4 % (42.0-52.0); LYMPH # 2.1 10*3/uL (1.3-4.4); LYMPH % 22.9 % (27.0-41.0); MEAN CELL VOLUME 100.3 fl (80.0-94.0); MEAN CORPUSCULAR HGB 30.9 pg (27.0-31.0); MEAN CORPUSCULAR HGB CONC 30.8 g/dl (33.0-37.0); MEAN PLATELET VOLUME 9.3 fl (9.6-12.3); MONO # 1.1 10*3/uL (0.1-1.0); NEUT # 5.2 10*3/uL (2.3-7.9); NEUT % 57.7 % (47.0-73.0); PLATELET COUNT AUTOMATED 228 10*3/uL (130-400); RED BLOOD COUNT 3.43 10*6/uL (4.50-5.90); RED CELL DISTRI WIDTH 16.6 % (0-14.5)
[2022-04-26 06:57] LABS: BUN 18 mg/dl (9-23); CHLORIDE 111 mmol/L (98-107)
[2022-04-26 08:00] VITALS: BP 140/58
[2022-04-26 12:00] VITALS: BP 125/50
[2022-04-26 16:00] VITALS: BP 120/50
[2022-04-26 20:00] VITALS: BP 141/54
[2022-04-27] VITALS: BP 120/43
[2022-04-27 06:28] LABS: BASO % 0.4 % (0.0-1.0); EOS # 0.5 10*3/uL (0.0-0.4); EOS % 7.9 % (1.0-4.0); HEMATOCRIT 37.1 % (42.0-52.0); LYMPH # 1.8 10*3/uL (1.3-4.4); LYMPH % 25.7 % (27.0-41.0); MEAN CELL VOLUME 101.6 fl (80.0-94.0); MEAN CORPUSCULAR HGB 30.7 pg (27.0-31.0); MEAN CORPUSCULAR HGB CONC 30.2 g/dl (33.0-37.0); MEAN PLATELET VOLUME 9.2 fl (9.6-12.3); MONO # 0.9 10*3/uL (0.1-1.0); MONO % 12.7 % (3.0-9.0); NEUT # 3.7 10*3/uL (2.3-7.9); NEUT % 53.2 % (47.0-73.0); PLATELET COUNT AUTOMATED 226 10*3/uL (130-400); RED BLOOD COUNT 3.65 10*6/uL (4.50-5.90); WHITE BLOOD COUNT 6.9 10*3/uL (4.8-10.8)
[2022-04-27 06:40] LABS: BUN 14 mg/dl (9-23); CHLORIDE 109 mmol/L (98-107); POTASSIUM 4.1 mmol/L (3.4-5.1)
[2022-04-27 08:00] VITALS: BP 148/60
[2022-04-27 12:00] VITALS: BP 116/61
[2022-04-27 16:00] VITALS: BP 124/62
[2022-04-27 20:00] VITALS: BP 133/76
[2022-04-28] VITALS: BP 115/60
[2022-04-28 06:42] LABS: BASO % 0.6 % (0.0-1.0); EOS # 0.5 10*3/uL (0.0-0.4); EOS % 7.5 % (1.0-4.0); HEMATOCRIT 34.5 % (42.0-52.0); LYMPH # 1.4 10*3/uL (1.3-4.4); LYMPH % 20.8 % (27.0-41.0); MEAN CELL VOLUME 99.7 fl (80.0-94.0); MEAN CORPUSCULAR HGB 31.8 pg (27.0-31.0); MEAN CORPUSCULAR HGB CONC 31.9 g/dl (33.0-37.0); MONO # 0.9 10*3/uL (0.1-1.0); MONO % 13.7 % (3.0-9.0); NEUT # 3.8 10*3/uL (2.3-7.9); NEUT % 57.1 % (47.0-73.0); PLATELET COUNT AUTOMATED 219 10*3/uL (130-400); RED BLOOD COUNT 3.46 10*6/uL (4.50-5.90); RED CELL DISTRI WIDTH 15.9 % (0-14.5); WHITE BLOOD COUNT 6.7 10*3/uL (4.8-10.8)
[2022-04-28 06:58] LABS: BUN 10 mg/dl (9-23); CHLORIDE 109 mmol/L (98-107)
[2022-04-28 08:00] VITALS: BP 122/87
[2022-04-28 12:00] VITALS: BP 124/81
[2022-04-28 16:00] VITALS: BP 103/58
[2022-04-28 20:00] VITALS: BP 116/76
[2022-04-29] VITALS: BP 118/64
[2022-04-29 05:33] LABS: BUN 7 mg/dl (9-23); CHLORIDE 107 mmol/L (98-107); POTASSIUM 4.2 mmol/L (3.4-5.1)
[2022-04-29 06:25] LABS: BASO # 0.1 10*3/uL (0.0-0.1); BASO % 0.8 % (0.0-1.0); EOS # 0.4 10*3/uL (0.0-0.4); EOS % 6.4 % (1.0-4.0); HEMATOCRIT 36.1 % (42.0-52.0); LYMPH # 1.5 10*3/uL (1.3-4.4); LYMPH % 22.5 % (27.0-41.0); MEAN CELL VOLUME 100.3 fl (80.0-94.0); MEAN CORPUSCULAR HGB 31.4 pg (27.0-31.0); MEAN CORPUSCULAR HGB CONC 31.3 g/dl (33.0-37.0); MEAN PLATELET VOLUME 9.5 fl (9.6-12.3); MONO # 0.9 10*3/uL (0.1-1.0); MONO % 13.2 % (3.0-9.0); NEUT # 3.7 10*3/uL (2.3-7.9); NEUT % 56.8 % (47.0-73.0); PLATELET COUNT AUTOMATED 258 10*3/uL (130-400); RED CELL DISTRI WIDTH 15.4 % (0-14.5); WHITE BLOOD COUNT 6.6 10*3/uL (4.8-10.8)
[2022-04-29 08:00] VITALS: BP 127/62
[2022-04-29 12:00] VITALS: BP 119/53
[2022-04-29 16:00] VITALS: BP 138/54
[2022-04-29 20:00] VITALS: BP 133/46
[2022-04-30] VITALS: BP 144/58
[2022-04-30 06:10] LABS: BUN 9 mg/dl (9-23); CHLORIDE 103 mmol/L (98-107)
[2022-04-30 06:39] LABS: BASO # 0.1 10*3/uL (0.0-0.1); BASO % 0.7 % (0.0-1.0); EOS # 0.4 10*3/uL (0.0-0.4); LYMPH # 1.3 10*3/uL (1.3-4.4); LYMPH % 18.9 % (27.0-41.0); MEAN CELL VOLUME 98.3 fl (80.0-94.0); MEAN CORPUSCULAR HGB 30.9 pg (27.0-31.0); MEAN CORPUSCULAR HGB CONC 31.5 g/dl (33.0-37.0); MEAN PLATELET VOLUME 9.1 fl (9.6-12.3); NEUT % 59.1 % (47.0-73.0); PLATELET COUNT AUTOMATED 262 10*3/uL (130-400); RED BLOOD COUNT 3.46 10*6/uL (4.50-5.90); RED CELL DISTRI WIDTH 15.2 % (0-14.5); WHITE BLOOD COUNT 6.8 10*3/uL (4.8-10.8)
[2022-04-30 08:00] VITALS: BP 117/96
[2022-04-30] MEDS ORDERED: HYDROCODONE-AC1 EAC1 PO (11:21)
[2022-04-30] MEDS ORDERED: VANCOMYCIN HCL125 MG PO (11:21)
[2022-04-30] MEDS ORDERED: ALDACTONE25 MG PO (11:21)
== END 2022-04-30 13:00 | disposition home or self-care (01) | DRG 371 ==
LOC: ED 16:42 → 4E 23:04 → EDHOLD 23:04 → 4E 04-25 02:16
PROVIDERS: Internal Medicine; Student in an Organized Health Care Education/Training Program; ADMIT Internal Medicine; ATTEND Internal Medicine
DX: A04.72 Enterocolitis due to Clostridium difficile, not specified as recurrent (principal); N17.0 Acute kidney failure with tubular necrosis; I50.32 Chronic diastolic (congestive) heart failure; D53.9 Nutritional anemia, unspecified; K21.9 Gastro-esophageal reflux disease without esophagitis; K57.30 Diverticulosis of large intestine without perforation or abscess without bleeding; Z96.642 Presence of left artificial hip joint; R73.9 Hyperglycemia, unspecified; E83.42 Hypomagnesemia; J44.9 Chronic obstructive pulmonary disease, unspecified; F43.10 Post-traumatic stress disorder, unspecified; G20 Parkinson's disease; F41.9 Anxiety disorder, unspecified; Z87.891 Personal history of nicotine dependence; Z79.899 Other long term (current) drug therapy; Z88.5 Allergy status to narcotic agent; K57.90 Diverticulosis of intestine, part unspecified, without perforation or abscess without bleeding

== ENCOUNTER → 2022-08-07 | Outpatient (CLI) | payer OTHER ==
[~2022-08-07] MED LIST changes: +ALDACTONE25 M1 PO; +CARAFATE1 G1 PO; +CARBIDOPA-LEVO1 EAC6 PO; +EXELON1 EACH TD; +MELATONIN3 M3 PO; +MYCOLOG CREAM 115 GM T; +NYAMYC15 GM T; +ONDANSETRON HYDR4 M1 PO; +Ondansetron4 MG PO; +PROMETHAZINE12.5 MG PO; +PROTONIX40 MG PO; +QUESTRAN POWDE378 GM PO; +REMERON30 M1 PO; +VANCOCIN125 M1 PO; +VANCOMYCIN HCL125 MG PO; +VANCOMYCIN HCL250 MG PO
== END | disposition home or self-care (01) ==
LOC: LAB 08-06 11:01
PROVIDERS: ATTEND Family Medicine
DX: K52.9 Noninfective gastroenteritis and colitis, unspecified (principal)

== ENCOUNTER 2022-09-20 10:16 | Inpatient (IN) | payer OTHER ==
[~2022-09-20] VITALS: Ht 185.4 cm; Wt 106.6 kg
[2022-09-20 10:26] VITALS: BP 143/60
[2022-09-20 10:49] LABS: BASO # 0.1 10*3/uL (0.0-0.1); EOS # 0.3 10*3/uL (0.0-0.4); EOS % 3.4 % (1.0-4.0); HEMATOCRIT 42.7 % (42.0-52.0); MEAN CELL VOLUME 98.4 fl (80.0-94.0); MEAN CORPUSCULAR HGB 30.6 pg (27.0-31.0); MEAN CORPUSCULAR HGB CONC 31.1 g/dl (33.0-37.0); MONO # 0.5 10*3/uL (0.1-1.0); MONO % 6.4 % (3.0-9.0); NEUT # 5.6 10*3/uL (2.3-7.9); NEUT % 76.1 % (47.0-73.0); PLATELET COUNT AUTOMATED 191 10*3/uL (130-400); RED BLOOD COUNT 4.34 10*6/uL (4.50-5.90); RED CELL DISTRI WIDTH 15.4 % (0-14.5); WHITE BLOOD COUNT 7.3 10*3/uL (4.8-10.8)
[2022-09-20 11:11] LABS: ALKALINE PHOSPHATASE 108 U/L (46-116); BUN 21 mg/dl (9-23); CHLORIDE 105 mmol/L (98-107); LIPASE 96 U/L (12-53); POTASSIUM 4.1 mmol/L (3.4-5.1); SGPT/ALT < 7 U/L (10-49); TOTAL PROTEIN 6.9 gm/dL (6.0-8.0)
[2022-09-20 11:17] LABS: ACT PARTIAL THROMBO TIME 29.7 SECONDS (20.0-32.1); INTERNATIONAL NORM RATIO 1.1 (2.0-3.5)
[2022-09-20 12:02] VITALS: BP 134/58
[2022-09-20 15:08] LABS: BILIRUBIN Negative (Negative); BLOOD Trace-Lysed (Negative); CLARITY Clear (Clear); COLOR Yellow (Yellow); GLUCOSE Negative (Negative); KETONE Negative (Negative); LEUKO ESTERASE Negative (Negative); NITRITE Negative (Negative); PH 5.5 (4.5-8.0); UROBILINOGEN 0.2 E.U./dl (0.0-1.0)
[2022-09-20 15:20] LABS: EPITHELIAL CELLS 0-2; MUCOUS TRACE; WBC 0-2 wbc/hpf (0-5)
[2022-09-20 18:09] VITALS: BP 144/63
[2022-09-20 19:21] VITALS: BP 142/63
[2022-09-20 22:28] VITALS: BP 131/48
[2022-09-20 23:00] VITALS: BP 156/63
[2022-09-21] VITALS: BP 130/59
[2022-09-21 07:24] LABS: BASO # 0.1 10*3/uL (0.0-0.1); BASO % 0.8 % (0.0-1.0); EOS # 0.4 10*3/uL (0.0-0.4); EOS % 5.8 % (1.0-4.0); HEMATOCRIT 42.7 % (42.0-52.0); LYMPH # 1.5 10*3/uL (1.3-4.4); LYMPH % 23.2 % (27.0-41.0); MEAN CELL VOLUME 100.5 fl (80.0-94.0); MEAN CORPUSCULAR HGB 30.4 pg (27.0-31.0); MEAN CORPUSCULAR HGB CONC 30.2 g/dl (33.0-37.0); MEAN PLATELET VOLUME 10.2 fl (9.6-12.3); MONO # 0.6 10*3/uL (0.1-1.0); MONO % 9.2 % (3.0-9.0); NEUT # 3.9 10*3/uL (2.3-7.9); NEUT % 60.8 % (47.0-73.0); PLATELET COUNT AUTOMATED 205 10*3/uL (130-400); RED BLOOD COUNT 4.25 10*6/uL (4.50-5.90); RED CELL DISTRI WIDTH 15.8 % (0-14.5); WHITE BLOOD COUNT 6.4 10*3/uL (4.8-10.8)
[2022-09-21 07:41] LABS: BUN 17 mg/dl (9-23); CHLORIDE 104 mmol/L (98-107); POTASSIUM 4.2 mmol/L (3.4-5.1)
[2022-09-21 08:00] VITALS: BP 123/58
[2022-09-21 12:00] VITALS: BP 136/60
[2022-09-21 16:00] VITALS: BP 134/54
[2022-09-21 20:00] VITALS: BP 139/64
[2022-09-22 07:51] LABS: BASO # 0.1 10*3/uL (0.0-0.1); BASO % 0.9 % (0.0-1.0); EOS # 0.3 10*3/uL (0.0-0.4); EOS % 6.1 % (1.0-4.0); HEMATOCRIT 40.3 % (42.0-52.0); LYMPH # 1.4 10*3/uL (1.3-4.4); LYMPH % 25.2 % (27.0-41.0); MEAN CELL VOLUME 98.1 fl (80.0-94.0); MEAN CORPUSCULAR HGB 30.9 pg (27.0-31.0); MEAN CORPUSCULAR HGB CONC 31.5 g/dl (33.0-37.0); MEAN PLATELET VOLUME 10.2 fl (9.6-12.3); MONO # 0.6 10*3/uL (0.1-1.0); MONO % 10.8 % (3.0-9.0); NEUT # 3.1 10*3/uL (2.3-7.9); NEUT % 56.8 % (47.0-73.0); PLATELET COUNT AUTOMATED 173 10*3/uL (130-400); RED BLOOD COUNT 4.11 10*6/uL (4.50-5.90); RED CELL DISTRI WIDTH 15.3 % (0-14.5); WHITE BLOOD COUNT 5.4 10*3/uL (4.8-10.8)
[2022-09-22 08:00] VITALS: BP 142/70
[2022-09-22 08:10] LABS: BUN 12 mg/dl (9-23); CHLORIDE 105 mmol/L (98-107); POTASSIUM 3.9 mmol/L (3.4-5.1)
[2022-09-22 12:00] VITALS: BP 140/68
[2022-09-22 16:00] VITALS: BP 140/72
[2022-09-22 20:00] VITALS: BP 124/62
[2022-09-23 07:08] LABS: BASO % 0.4 % (0.0-1.0); EOS # 0.3 10*3/uL (0.0-0.4); EOS % 4.5 % (1.0-4.0); HEMATOCRIT 38.8 % (42.0-52.0); LYMPH # 1.2 10*3/uL (1.3-4.4); LYMPH % 16.6 % (27.0-41.0); MEAN CELL VOLUME 98.5 fl (80.0-94.0); MEAN CORPUSCULAR HGB CONC 31.4 g/dl (33.0-37.0); MONO # 0.8 10*3/uL (0.1-1.0); MONO % 10.2 % (3.0-9.0); NEUT # 5.1 10*3/uL (2.3-7.9); PLATELET COUNT AUTOMATED 174 10*3/uL (130-400); RED BLOOD COUNT 3.94 10*6/uL (4.50-5.90); RED CELL DISTRI WIDTH 15.2 % (0-14.5); WHITE BLOOD COUNT 7.5 10*3/uL (4.8-10.8)
[2022-09-23 07:26] LABS: BUN 16 mg/dl (9-23); CHLORIDE 102 mmol/L (98-107); POTASSIUM 3.6 mmol/L (3.4-5.1)
[2022-09-23 08:00] VITALS: BP 114/68
== END 2022-09-23 11:51 | disposition home or self-care (01) | DRG 377 ==
LOC: ED 10:16 → 5E 13:50 → EDHOLD 13:50 → 5E 20:05
PROVIDERS: Emergency Medicine; Student in an Organized Health Care Education/Training Program; ADMIT Internal Medicine; ATTEND Internal Medicine
DX: K57.31 Diverticulosis of large intestine without perforation or abscess with bleeding (principal); N17.0 Acute kidney failure with tubular necrosis; I50.32 Chronic diastolic (congestive) heart failure; I11.0 Hypertensive heart disease with heart failure; F41.9 Anxiety disorder, unspecified; G89.29 Other chronic pain; F32.A Depression, unspecified; G20 Parkinson's disease; F43.10 Post-traumatic stress disorder, unspecified; D64.9 Anemia, unspecified; J44.9 Chronic obstructive pulmonary disease, unspecified; M47.816 Spondylosis without myelopathy or radiculopathy, lumbar region; K21.9 Gastro-esophageal reflux disease without esophagitis; Z96.642 Presence of left artificial hip joint; Z88.5 Allergy status to narcotic agent; Z90.89 Acquired absence of other organs; Z90.5 Acquired absence of kidney; Z98.52 Vasectomy status; Z87.891 Personal history of nicotine dependence; Z86.718 Personal history of other venous thrombosis and embolism; Z79.01 Long term (current) use of anticoagulants; Z82.49 Family history of ischemic heart disease and other diseases of the circulatory system; Z82.5 Family history of asthma and other chronic lower respiratory diseases; Z87.11 Personal history of peptic ulcer disease; Z79.899 Other long term (current) drug therapy

== ENCOUNTER → 2022-10-29 | Outpatient (CLI) | payer OTHER | END | disposition home or self-care (01) | LOC: LAB 11:43 | PROVIDERS: ATTEND Family Medicine | DX: R19.7 Diarrhea, unspecified (principal) ==

== ENCOUNTER → 2022-12-18 | Outpatient (CLI) | payer OTHER ==
[2022-12-18 12:17] LABS: HEMATOCRIT 41.6 % (42.0-52.0); MEAN CELL VOLUME 99.3 fl (80.0-94.0); MEAN CORPUSCULAR HGB 31.5 pg (27.0-31.0); MEAN CORPUSCULAR HGB CONC 31.7 g/dl (33.0-37.0); MEAN PLATELET VOLUME 10.1 fl (9.6-12.3); RED BLOOD COUNT 4.19 10*6/uL (4.50-5.90); RED CELL DISTRI WIDTH 15.7 % (0-14.5); WHITE BLOOD COUNT 7.2 10*3/uL (4.8-10.8)
[2022-12-18 12:50] LABS: ALKALINE PHOSPHATASE 110 U/L (46-116); BUN 30 mg/dl (9-23); CHLORIDE 109 mmol/L (98-107); CHOLESTEROL 112 mg/dL (<200); LDL CHOLESTEROL 44 mg/dL (9-159); POTASSIUM 5.2 mmol/L (3.4-5.1); TOTAL PROTEIN 7.1 gm/dL (6.0-8.0); TRIGLYCERIDES 78 mg/dl (<150)
[2022-12-18 12:54] LABS: SGPT/ALT < 7 U/L (5-49)
[2022-12-18 12:56] LABS: VITAMIN D, 25-HYDROXY 57.3 ng/mL (30-100)
== END | disposition home or self-care (01) ==
LOC: LAB 11:39
PROVIDERS: ATTEND Family Medicine
DX: Z12.5 Encounter for screening for malignant neoplasm of prostate (principal); E55.9 Vitamin D deficiency, unspecified; E78.00 Pure hypercholesterolemia, unspecified; R60.9 Edema, unspecified; R53.83 Other fatigue

== ENCOUNTER → 2023-01-09 | Outpatient (CLI) | payer OTHER ==
[2023-01-13 00:07] LABS: TESTOSTERONE FREE, (DIRECT) 1.1 pg/mL (6.6-18.1)
== END | disposition home or self-care (01) ==
LOC: LAB 11:37
PROVIDERS: ATTEND Family Medicine
DX: N61.0 Mastitis without abscess (principal)

== ENCOUNTER → 2023-01-15 | Day surgery (SDC) | payer OTHER ==
[~2023-01-15] VITALS: Ht 190.5 cm; Wt 111.1 kg
[2023-01-15 14:43] VITALS: BP 155/47
[2023-01-15 16:13] VITALS: BP 136/65
[2023-01-15 16:28] VITALS: BP 136/54
[2023-01-15 16:43] VITALS: BP 147/54
[2023-01-16 07:30] VITALS: BP 136/65
== END | disposition home or self-care (01) ==
LOC: SDC 01-13 11:00
PROVIDERS: ATTEND Ophthalmology
DX: H25.12 Age-related nuclear cataract, left eye (principal); I10 Essential (primary) hypertension; K21.9 Gastro-esophageal reflux disease without esophagitis; M19.90 Unspecified osteoarthritis, unspecified site; F32.A Depression, unspecified; F43.10 Post-traumatic stress disorder, unspecified; F17.210 Nicotine dependence, cigarettes, uncomplicated; Z85.528 Personal history of other malignant neoplasm of kidney; Z98.818 Other dental procedure status; Z98.890 Other specified postprocedural states

== ENCOUNTER → 2023-02-12 | Day surgery (SDC) | payer OTHER ==
[~2023-02-12] VITALS: Ht 185.4 cm; Wt 95.3 kg
[2023-02-12 10:00] VITALS: BP 128/62
[2023-02-12 11:30] VITALS: BP 138/72
[2023-02-12 11:45] VITALS: BP 130/70
[2023-02-12 11:59] VITALS: BP 128/73
[2023-02-12 14:39] VITALS: BP 138/72
== END | disposition home or self-care (01) ==
LOC: SDC 02-07 13:15
PROVIDERS: ATTEND Ophthalmology
DX: E11.36 Type 2 diabetes mellitus with diabetic cataract (principal); H25.811 Combined forms of age-related cataract, right eye; I10 Essential (primary) hypertension; K21.9 Gastro-esophageal reflux disease without esophagitis; F32.A Depression, unspecified; J44.9 Chronic obstructive pulmonary disease, unspecified; F43.10 Post-traumatic stress disorder, unspecified; Z85.048 Personal history of other malignant neoplasm of rectum, rectosigmoid junction, and anus; Z87.891 Personal history of nicotine dependence; Z98.890 Other specified postprocedural states; Z88.8 Allergy status to other drugs, medicaments and biological substances

== ENCOUNTER 2023-06-22 15:47 | Inpatient (IN) | payer OTHER ==
[~2023-06-22] VITALS: Ht 185.4 cm; Wt 95.3 kg
[~2023-06-22 15:47] MED LIST changes: +ALGINATE DRESSING/CME-CELL 1 EACH BANDAGE T ONE; +ALGINATE DRESSING/CME-CELL 4X4 1 EACH BANDAGE T ONE; +CHAIR CUSHION DEVICE ONE; +FOAM BANDAGE 1 EACH BANDAGE T ONE; +FOAM BANDAGE 4X4 T ONE; +FOAM BANDAGE HEEL T ONE; +HEEL PROTECTOR DEVICE ONE; +MEGACE40 MG PO; +SILICONE CONTACT LAYER WOUND DRESSING (VERSATEL) ONE
[2023-06-22 16:00] VITALS: BP 186/98
[2023-06-22] MEDS ORDERED: MORPHINE Sulfate 50 MG in SODIUM CHLORIDE 0.9% 45 ML IV SCH (16:20)
[2023-06-22] MEDS ORDERED: SODIUM CHLORIDE 0.9% 1,000 ML IV ONE (17:12)
[2023-06-22 20:00] VITALS: BP 170/73
[2023-06-23] VITALS: BP 161/97
[2023-06-23 01:30] VITALS: BP 158/86
[2023-06-23 08:00] VITALS: BP 150/80
[2023-06-23] MEDS ORDERED: ALGINATE DRESSING/CME-CELL 4X4 1 EACH BANDAGE T ONE (11:34)
[2023-06-23 20:00] VITALS: BP 127/46
[2023-06-24] VITALS: BP 131/44
[2023-06-24] MEDS ORDERED: SODIUM CHLORIDE 0.9% 1,000 ML IV ONE (03:11)
[2023-06-24 08:00] VITALS: BP 116/40
[2023-06-24 16:00] VITALS: BP 95/39
[2023-06-24 20:00] VITALS: BP 91/36
[2023-06-24] MEDS ORDERED: MORPHINE Sulfate 100 MG in SODIUM CHLORIDE 0.9% 90 ML IV SCH (21:30)
[2023-06-25] VITALS: BP 90/33
[2023-06-25 08:00] VITALS: BP 76/32
[2023-06-25] MEDS ORDERED: SODIUM CHLORIDE 0.9% 0 ML IV ONE (14:33)
== END 2023-06-25 14:36 | DRG 871 ==
LOC: 4E 15:47
PROVIDERS: ADMIT Internal Medicine; ATTEND Internal Medicine
DX: A41.9 Sepsis, unspecified organism (principal); G93.41 Metabolic encephalopathy; L89.154 Pressure ulcer of sacral region, stage 4; N17.9 Acute kidney failure, unspecified; E87.1 Hypo-osmolality and hyponatremia; Z66 Do not resuscitate; Z51.5 Encounter for palliative care; E87.8 Other disorders of electrolyte and fluid balance, not elsewhere classified